=== PATIENT | female | born 1945 | race Caucasian/White ===

== ENCOUNTER → 2021-05-17 | Outpatient (CLI) | payer MEDICARE ==
[2021-05-18 00:39] LABS: African American GFR (CKD) 45.1 (60.0-200.0); BUN/Creat Ratio 22.76 Ratio (12.00-20.00); Blood Urea Nitrogen 30.5 mg/dL (9.0-27.0); Calcium 9.3 mg/dL (8.7-10.3); Carbon Dioxide 26.1 mmol/L (21.6-31.8); Non-African American GFR(CKD) 38.9 (60.0-200.0); Potassium 4.4 mmol/L (3.5-5.5)
== END | disposition home or self-care (01) ==
LOC: LABWHC1 15:09
PROVIDERS: ATTEND Internal Medicine Interventional Cardiology
DX: I10 Essential (primary) hypertension (principal); I34.0 Nonrheumatic mitral (valve) insufficiency; I07.1 Rheumatic tricuspid insufficiency; Z79.899 Other long term (current) drug therapy
CPT/HCPCS: 36415; 80048; 83880

== ENCOUNTER → 2021-08-06 | Outpatient (CLI) | payer MEDICARE ==
[2021-08-06 18:12] LABS: African American GFR (CKD) 27.3 (60.0-200.0); Anion Gap 13.9 mmol/L (10.00-18.00); BUN/Creat Ratio 24.58 Ratio (12.00-20.00); Blood Urea Nitrogen 49.9 mg/dL (9.0-27.0); Calcium 8.8 mg/dL (8.7-10.3); Non-African American GFR(CKD) 23.6 (60.0-200.0); Potassium 4.9 mmol/L (3.5-5.5)
== END | disposition home or self-care (01) ==
LOC: LABWHC1 11:21
DX: I50.9 Heart failure, unspecified (principal); I34.0 Nonrheumatic mitral (valve) insufficiency; I07.1 Rheumatic tricuspid insufficiency; R60.0 Localized edema
CPT/HCPCS: 36415; 80048

== ENCOUNTER → 2022-08-09 | Outpatient (CLI) | payer MEDICARE ==
--- NOTE | 2022-08-09 19:45 | CT ---
EXAMINATION TYPE: CT brain wo con CT DLP: 1792 mGycm, Automated exposure control for dose reduction was used. DATE OF EXAM: 08/09/2022 5:21 PM COMPARISON: CT sinus 04/23/2015. CLINICAL INDICATION:Female, 76 years old with history of R42 Dizziness, dizziness and loss of balance following fall 2 weeks ago TECHNIQUE: Brain: Axial CT images of the brain were obtained with coronal and sagittal reformats created and rev iewed. Contrast used: None. Oral contrast used: None. FINDINGS: Brain: Extra-axial spaces: No abnormal extra-axial fluid collections. Ventricular system: Within normal limits Cerebral parenchyma: No acute intraparenchymal hemorrhage or mass effect. The obando-white junction is well differentiated. Cerebellum: Unremarkable. Mass effect: No evidence of midline shift. Intracranial vasculature: Atherosclerotic calcifications of the intracranial vessels. Soft tissues: Bilateral frontal scalp contusion/edema. Calvarium/osseous structures: No depressed skull fracture. Paranasal sinuses and mastoid air cells: Mild scattered paranasal sinus disease. Visualized orbits: Orbital contents are intact. IMPRESSION: 1. No acute intracranial process. 2. Bilateral frontal scalp contusion/edema. No evidence of fracture.
== END | disposition home or self-care (01) ==
LOC: RADCTMAIN 16:39
PROVIDERS: ATTEND Family Medicine
DX: S00.03XA Contusion of scalp, initial encounter (principal); R42 Dizziness and giddiness
CPT/HCPCS: 70450

== ENCOUNTER 2022-08-10 13:27 | Inpatient (IN) | payer MEDICARE ==
[2022-08-10 14:38] LABS: Anisocytosis Slight; Basophils # (A) 0.1 k/uL (0-0.2); Basophils % (A) 1 %; Eosinophils % (A) 1 %; HGB 8.9 gm/dL (11.4-16.0); Lymphocytes # (A) 0.8 k/uL (1.0-4.8); Lymphocytes % (A) 13 %; MCH 30.7 pg (25.0-35.0); MCHC 34.2 g/dL (31.0-37.0); MCV 89.9 fL (80.0-100.0); Mean Platelet Volume 8.9; Monocytes # (A) 0.4 k/uL (0-1.0); Monocytes % (A) 6 %; Neutrophils # (A) 4.7 k/uL (1.3-7.7); Neutrophils % (A) 78 %; Platelet Count 162 k/uL (150-450); RBC 2.89 m/uL (3.80-5.40); RDW 17.1 % (11.5-15.5); WBC 6.1 k/uL (3.8-10.6)
[2022-08-10 14:46] LABS: INR 0.9 (<1.2); Partial Thromboplastin Time 25.4 sec (22.0-30.0)
[2022-08-10 14:58] LABS: Albumin 3.7 g/dL (3.5-5.0); Calcium 8.2 mg/dL (8.4-10.2); Magnesium 2.4 mg/dL (1.6-2.3); Potassium 4.9 mmol/L (3.5-5.1); Total Bilirubin 0.8 mg/dL (0.2-1.3); Total Protein 7.1 g/dL (6.3-8.2)
--- NOTE | 2022-08-10 15:00 | XR ---
EXAMINATION TYPE: XR chest 2V DATE OF EXAM: 08/10/2022 2:51 PM COMPARISON: none TECHNIQUE: XR chest 2V Frontal and lateral views of the chest. CLINICAL INDICATION:Female, 76 years old with history of difficulty breathing; FINDINGS: Lungs/Pleura: There is no evidence of pleural effusion, focal consolidation, or pneumothorax. Pulmonary vascularity: Pulmonary vascular congestion. Heart/mediastinum: Cardiomediastinal silhouette is enlarged and stable. Musculoskeletal: No acute osseous pathology. Lines/Tubes:Right internal jugular central venous catheter with distal tip at the cavoatrial junction . IMPRESSION: Cardiomegaly and mild pulmonary vascular congestion. Correlate with BNP for congestive heart failure. Correlate with clinical history to rule out underlying multifocal infection.
--- NOTE | 2022-08-10 15:26 | ED ---
General Adult HPI - General Chief complaint: Shortness of Breath Stated complaint: low O2 Time Seen by Provider: 08/10/22 13:35 Source: patient, RN notes reviewed, old records reviewed Mode of arrival: ambulatory Limitations: no limitations - History of Present Illness Initial comments: Patient is a 76-year-old female with past medical history remarkable for hypertension, CHF, angiosarcoma receives weekly chemotherapy presents emergency Department complaining of a chronic cough, as well as pneumonia that has been resistant to 3 rounds of antibiotics. Was sent by her PCP Dr. Galdamez. Also presents over concern for concussion, as well as head trauma multiple weeks ago with continued intermittent nausea and lightheaded sensations. She denies orth opnea. Denies PND. Denies worsening lower extremity edema. Endorses somewhat exertional dyspnea but states it is also limited by her lightheadedness that she occasionally gets. Denies chest pain. Denies any abdominal pain, nausea, vomiting. No other acute complaints at this time. Patient is not on oxygen at home.Patient has a cough consistent of clear mucus. - Related Data Allergies Allergy/AdvReac Type Severity Reaction Status Date / Time No Known Allergies Allergy Verified 08/10/22 13:34 Review of Systems ROS Statement: Those systems with pertinent positive or pertinent negative responses have been documented in the HPI. Review of Systems: CONST: Denies fever EYES: Denies blurry vision ENT: Denies nasal congestion C/V: Denies Chest pain RESP: Endorses Shortness of breath GI: Denies abdominal pain : Denies dysuria SKIN: Denies rash. MSK: Denies joint pain. NEURO: Denies headache ROS Other: All systems not noted in ROS Statement are negative. Past Medical History Past Medical History: Hypertension Additional Past Medical History / Comment(s): CHF, CX- angiosarcoma History of Any Multi-Drug Resistant Organisms: None Reported Past Surgical History: Orthopedic Surgery Additional Past Surgical History / Comment(s): mastectomy Past Psychological History: No Psychological Hx Reported Smoking Status: Never smoker Past Alcohol Use History: Occasional Past Drug Use History: None Reported General Exam - General Exam Comments Initial Comments: General: Appears in no acute distress. HEAD: Normal with no signs of head trauma. Patient has bruising under her left eye from the fall 2 weeks ago. EYES: PERRLA, EOMI, conjunctiva normal, no discharge. ENT: Hearing grossly intact, normal oropharynx. RESPIRATORY: Bilateral crackles/rhonchi. Mild intermittent hypoxia to 91%. C/V: Regular rate and rhythm. S1 and S2 auscultated, no edema, peripheral pulses 2+ and intact throughout ABD: Abd is soft, nontender, nondistended EXT: Normal range of motion, no obvious deformity SKIN: No rashes or lesions observed on exposed skin. NEURO: Alert and Oriented 4. Limitations: no limitations Course Vital Signs 08/10/22 08/10/22 13:30 14:30 Temperature 97.8 F Pulse Rate 59 L Respiratory 16 Rate Blood Pressure 125/69 O2 Sat by Pulse 91 L 95 Oximetry Medical Decision Making - Medical Decision Making Based on the patient's presentation and physical exam, I am concerned for cardio pony etiology for her current symptoms. This does include pneumonia but cannot rule out heart failure. Clinically, it seems more like pneumonia she is having a productive cough that has been ongoing and resistant to antibiotic therapy. She has no evidence of clinical heart failure including lack of orthopnea, PND, lower extremity edema. Patient is mildly hypoxic on room air and will be placed on 2 L nasal cannula for comfort. She was in agreement with this plan. Patient received CT imaging of brain yesterday, which is negative for any acute intracranial trauma or bleed. I did update the patient regarding this and she expressed understanding. EKG shows no signs of acute ischemia. Patient is positive for influenza, has an elevated BNP of 17,000 which is elevated for the patient, as well as a indeterminate troponin of 0.021. Patient also has an AK I with an elevated BUN and creatinine of 71 and 2.39. Patient is hyponatremic to 127 and hypochloremia to 92. Patient also has anemia in the setting of chemotherapy administration at 8.9. She is not neutropenic. On reevaluation, after the patient. She expressed understanding. She'll be started on IV Lasix, IV antibiotics to cover for pneumonia. She was in agreement this plan. I spoke with Dr. Galdamez who accepted the admission. Symptoms seem to be a mix of possible heart failure as well as influenza. We will obtain an echo. He requested a cardiology consult, as well as starting the patient on IV Levaquin and azithromycin. Blood cultures will be obtained and sent. He was in agreement with the overall plan the patient is likely experiencing pneumonia over heart failure but we will work her up for heart failure. AK eye is likely secondary to increased Lasix and Bumex use. She will receive a 1 time 500 mL fluid bolus and otherwise oral hydration will be encouraged. She will receive a 1 time dose of Lasix. Patient is influenza A positive, however his symptoms have been ongoing for 2 weeks unlikely to benefit from Tamiflu as she does not meet criteria for his symptoms are greater than 3 days old. He was in agreement with holding Tamiflu and started patient on antibiotics. He'll see the patient tomorrow. I updated the patient she was in agreement this plan. Was pt. sent in by a medical professional or institution (, PA, MUSIC LIBRARY ASSISTANT, urgent care, hospital, or care home...) When possible be specific @ -yes, her PCP Dr. Galdamez sent the patient in for further evaluation due to shortness of breath, concern for pneumonia. Did you speak to anyone other than the patient for history (EMS, parent, family, police, friend...)? What history was obtained from this source @ -No Did you review nursing and triage notes (agree or disagree)? Why? @ -I reviewed and agree with nursing and triage notes Were old charts reviewed (outside hosp., previous admission, EMS record, old EKG, old radiological studies, urgent care reports/EKG's, care home records)? Report findings @ -Yes, old charts were reviewed. Old CT was reviewed from yesterday. Differential Diagnosis (chest pain, altered mental status, abdominal pain women, abdominal pain men, vaginal bleeding, weakness, fever, dyspnea, syncope, headache, dizziness, GI bleed, back pain, seizure, CVA, palpatations, mental health)? @ -Differential Dyspnea: Coronary syndrome, arrhythmia, tamponade, asthma, COPD, pulmonary embolism, pneumonia, pneumothorax, pulmonary effusion, anaphylaxis, diabetic ketoacidosis, flailed chest, pulmonary contusion, diaphragmatic rupture, anemia, neuromuscular, this is not meant to be an all-inclusive list. EKG interpreted by me (3pts min.). @ -As above X-rays interpreted by me (1pt min.). @ -Chest x-ray shows findings concerning for pneumonia versus possible CHF. CT interpreted by me (1pt min.). @ -None done U/S interpreted by me (1pt. min.). @ -None done What testing was considered but not performed or refused? (CT, X-rays, U/S, labs)? Why? @ -None What meds were considered but not given or refused? Why? @ -None Did you discuss the management of the patient with other professionals (professionals i.e. , PA, MUSIC LIBRARY ASSISTANT, lab, RT, psych nurse, social science research assistant, park superintendent, teacher, helicopter officer, case operator)? Give summary @ -No Was smoking cessation discussed for >3mins.? @ -No Was critical care preformed (if so, how long)? @ -No Were there social determinants of health that impacted care today? How? (Homelessness, low income, unemployed, alcoholism, drug addiction, transportation, low edu. Level, literacy, decrease access to med. care, [facility], rehab)? @ -No Was there de-escalation of care discussed even if they declined (Discuss DNR or withdrawal of care, Hospice)? DNR status @ -No What co-morbidities impacted this encounter? (DM, HTN, Smoking, COPD, CAD, Can cer, CVA, ARF, Chemo, Hep., AIDS, mental health diagnosis, sleep apnea, morbid obesity)? @ -CHF, cancer Was patient admitted / discharged? Hospital course, mention meds given and route, prescriptions, significant lab abnormalities, going to OR and other pertinent info. @ -Admitted to the hospital. See above for emergency department course. Undiagnosed new problem with uncertain prognosis? @ -No Drug Therapy requiring intensive monitoring for toxicity (Heparin, Nitro, Insulin, Cardizem)? @ -No Were any procedures done? @ -No Diagnosis/symptom? @ -Hypoxia Acute, or Chronic, or Acute on Chronic? @ -Acute Uncomplicated (without systemic symptoms) or Complicated (systemic symptoms)? @ -Uncomplicated Side effects of treatment? @ -No Exacerbation, Progression, or Severe Exacerbation? @ -No Poses a threat to life or bodily function? How? (Chest pain, USA, ID, pneumonia, PE, COPD, DKA, ARF, appy, cholecystitis, CVA, Diverticulitis, Homicidal, Suicidal, threat to staff... and all critical care pts) @ -Yes, if untreated can result in significant morbidity mortality. Diagnosis/symptom? @ -Pneumonia Acute, or Chronic, or Acute on Chronic? @ -Acute Uncomplicated (without systemic symptoms) or Complicated (systemic symptoms)? @ -Complicated Side effects of treatment? @ -none Exacerbation, Progression, or Severe Exacerbation] @ -no Poses a threat to life or bodily function? @ -Yes, if untreated can result in significant morbidity mortality. Diagnosis/symptom? @ -AK I Acute, or Chronic, or Acute on Chronic? @ -Acute Uncomplicated (without systemic symptoms) or Complicated (systemic symptoms)? @ -Uncomplicated Side effects of treatment? @ -none Exacerbation, Progression, or Severe Exacerbation] @ -no Poses a threat to life or bodily function? @ -no Diagnosis/symptom? @ -History of cancer on maintenance chemotherapy Acute, or Chronic, or Acute on Chronic? @ -Chronic Uncomplicated (without systemic symptoms) or Complicated (systemic symptoms)? @ -Uncomplicated Side effects of treatment? @ -none Exacerbation, Progression, or Severe Exacerbation] @ -no Poses a threat to life or bodily function? @ -no Diagnosis/symptom? @ -Influenza infection Acute, or Chronic, or Acute on Chronic? @ -Acute Uncomplicated (without systemic symptoms) or Complicated (systemic symptoms)? @ -Complicated Side effects of treatment? @ -none Exacerbation, Progression, or Severe Exacerbation] @ -no Poses a threat to life or bodily function? @ -Yes, if untreated can result in significant morbidity mortality. Diagnosis/symptom? @ -Hyponatremia and hypochloremia Acute, or Chronic, or Acute on Chronic? @ -Acute Uncomplicated (without systemic symptoms) or Complicated (systemic symptoms)? @ -Uncomplicated Side effects of treatment? @ -none Exacerbation, Progression, or Severe Exacerbation] @ -no Poses a threat to life or bodily function? @ -no Diagnosis/symptom? @ -Concussion Acute, or Chronic, or Acute on Chronic? @ -Acute Uncomplicated (without systemic symptoms) or Complicated (systemic symptoms)? @ -Uncomplicated Side effects of treatment? @ -none Exacerbation, Progression, or Severe Exacerbation] @ -no Poses a threat to life or bodily function? @ -no - Lab Data Result diagrams: 08/10/22 14:26 08/10/22 14:26 Lab Results 08/10/22 08/10/22 08/10/22 Range/Units 14:26 14:26 14:26 WBC 6.1 (3.8-10.6) k/uL RBC 2.89 L (3.80-5.40) m/uL Hgb 8.9 L (11.4-16.0) gm/dL Hct 26.0 L (34.0-46.0) % MCV 89.9 (80.0-100.0) fL MCH 30.7 (25.0-35.0) pg MCHC 34.2 (31.0-37.0) g/dL RDW 17.1 H (11.5-15.5) % Plt Count 162 (150-450) k/uL MPV 8.9 Neutrophils % 78 % Lymphocytes % 13 % Monocytes % 6 % Eosinophils % 1 % Basophils % 1 % Neutrophils # 4.7 (1.3-7.7) k/uL Lymphocytes # 0.8 L (1.0-4.8) k/uL Monocytes # 0.4 (0-1.0) k/uL Eosinophils # 0.0 (0-0.7) k/uL Basophils # 0.1 (0-0.2) k/uL Anisocytosis Slight PT 10.0 (9.0-12.0) sec INR 0.9 (<1.2) APTT 25.4 (22.0-30.0) sec Sodium 127 L (137-145) mmol/L Potassium 4.9 (3.5-5.1) mmol/L Chloride 92 L (98-107) mmol/L Carbon Dioxide 26 (22-30) mmol/L Anion Gap 9 mmol/L BUN 71 H (7-17) mg/dL Creatinine 2.39 H (0.52-1.04) mg/dL Est GFR (CKD-EPI)AfAm 22 (>60 ml/min/1.73 sqM) Est GFR (CKD-EPI)NonAf 19 (>60 ml/min/1.73 sqM) Glucose 105 H (74-99) mg/dL Plasma Lactic Acid Andrea (0.7-2.0) mmol/L Calcium 8.2 L (8.4-10.2) mg/dL Magnesium 2.4 H (1.6-2.3) mg/dL Total Bilirubin 0.8 (0.2-1.3) mg/dL AST 93 H (14-36) U/L ALT 69 H (4-34) U/L Alkaline Phosphatase 113 (38-126) U/L Troponin I (0.000-0.034) ng/mL NT-Pro-B Natriuret Pep pg/mL Total Protein 7.1 (6.3-8.2) g/dL Albumin 3.7 (3.5-5.0) g/dL Influenza Type A (PCR) (Not Detectd) Influenza Type B (PCR) (Not Detectd) RSV (PCR) (Not Detectd) SARS-CoV-2 (PCR) (Not Detectd) 08/10/22 08/10/22 08/10/22 Range/Units 14:26 14:26 14:26 WBC (3.8-10.6) k/uL RBC (3.80-5.40) m/uL Hgb (11.4-16.0) gm/dL Hct (34.0-46.0) % MCV (80.0-100.0) fL MCH (25.0-35.0) pg MCHC (31.0-37.0) g/dL RDW (11.5-15.5) % Plt Count (150-450) k/uL MPV Neutrophils % % Lymphocytes % % Monocytes % % Eosinophils % % Basophils % % Neutrophils # (1.3-7.7) k/uL Lymphocytes # (1.0-4.8) k/uL Monocytes # (0-1.0) k/uL Eosinophils # (0-0.7) k/uL Basophils # (0-0.2) k/uL Anisocytosis PT (9.0-12.0) sec INR (<1.2) APTT (22.0-30.0) sec Sodium (137-145) mmol/L Potassium (3.5-5.1) mmol/L Chloride (98-107) mmol/L Carbon Dioxide (22-30) mmol/L Anion Gap mmol/L BUN (7-17) mg/dL Creatinine (0.52-1.04) mg/dL Est GFR (CKD-EPI)AfAm (>60 ml/min/1.73 sqM) Est GFR (CKD-EPI)NonAf (>60 ml/min/1.73 sqM) Glucose (74-99) mg/dL Plasma Lactic Acid Andrea 1.4 (0.7-2.0) mmol/L Calcium (8.4-10.2) mg/dL Magnesium (1.6-2.3) mg/dL Total Bilirubin (0.2-1.3) mg/dL AST (14-36) U/L ALT (4-34) U/L Alkaline Phosphatase (38-126) U/L Troponin I 0.021 (0.000-0.034) ng/mL NT-Pro-B Natriuret Pep 79182 pg/mL Total Protein (6.3-8.2) g/dL Albumin (3.5-5.0) g/dL Influenza Type A (PCR) (Not Detectd) Influenza Type B (PCR) (Not Detectd) RSV (PCR) (Not Detectd) SARS-CoV-2 (PCR) (Not Detectd) 08/10/22 Range/Units 14:26 WBC (3.8-10.6) k/uL RBC (3.80-5.40) m/uL Hgb (11.4-16.0) gm/dL Hct (34.0-46.0) % MCV (80.0-100.0) fL MCH (25.0-35.0) pg MCHC (31.0-37.0) g/dL RDW (11.5-15.5) % Plt Count (150-450) k/uL MPV Neutrophils % % Lymphocytes % % Monocytes % % Eosinophils % % Basophils % % Neutrophils # (1.3-7.7) k/uL Lymphocytes # (1.0-4.8) k/uL Monocytes # (0-1.0) k/uL Eosinophils # (0-0.7) k/uL Basophils # (0-0.2) k/uL Anisocytosis PT (9.0-12.0) sec INR (<1.2) APTT (22.0-30.0) sec Sodium (137-145) mmol/L Potassium (3.5-5.1) mmol/L Chloride (98-107) mmol/L Carbon Dioxide (22-30) mmol/L Anion Gap mmol/L BUN (7-17) mg/dL Creatinine (0.52-1.04) mg/dL Est GFR (CKD-EPI)AfAm (>60 ml/min/1.73 sqM) Est GFR (CKD-EPI)NonAf (>60 ml/min/1.73 sqM) Glucose (74-99) mg/dL Plasma Lactic Acid Andrea (0.7-2.0) mmol/L Calcium (8.4-10.2) mg/dL Magnesium (1.6-2.3) mg/dL Total Bilirubin (0.2-1.3) mg/dL AST (14-36) U/L ALT (4-34) U/L Alkaline Phosphatase (38-126) U/L Troponin I (0.000-0.034) ng/mL NT-Pro-B Natriuret Pep pg/mL Total Protein (6.3-8.2) g/dL Albumin (3.5-5.0) g/dL Influenza Type A (PCR) Detected A (Not Detectd) Influenza Type B (PCR) Not Detected (Not Detectd) RSV (PCR) Not Detected (Not Detectd) SARS-CoV-2 (PCR) Not Detected (Not Detectd) - EKG Data -: EKG Interpreted by Me EKG Comments: 12-lead Electrocardiogram Interpretation Note EKG was reviewed and interpreted by myself. 12-lead ECG performed at 1435 is interpreted by me as revealing sinus bradycardia at a rate of 55 beats per min marco a. [place] is normal. VT interval is 176 seconds, QR spiritism is 118 ms, QTc is 435 ms.. There were no ST or T wave abnormalities to suggest myocardial ischemia or injury. R wave progression across the precordium was satisfactory. By my interpretation this EKG is non-diagnostic for acute ischemia. No prior EKG for comparison. Disposition Clinical Impression: History of CHF (congestive heart failure), Pneumonia, Influenza A, Concussion, RYAN (acute kidney injury) Disposition: ADMITTED IP TO THIS HOSP Condition: Stable Referrals: Greyson Galdamez MD [Primary Care Provider] - 1-2 days Time of Disposition: 15:25
[2022-08-10] MEDS ORDERED: FUROSEMIDE 10 MG/ML 4 ML VIAL IV STA (15:35)
[2022-08-10] MEDS ORDERED: SODIUM CHLORIDE 0.9% 500 ML 500 ML IV STA (15:35)
[2022-08-10] MEDS ORDERED: NALOXONE 0.4 MG/ML 1 ML VIAL IV PRN (15:35)
[2022-08-10] MEDS ORDERED: LEVOFLOXACIN 750MG-D5W PMX 750 MG in DEXTROSE/WATER 1 150ML.BAG IVPB SCH (16:00)
[2022-08-10 16:53] LABS: Appearance,Urine Clear (Clear); Bilirubin,Urine Negative (Negative); Blood,Urine Trace (Negative); Color,Urine Light Yellow; Glucose,Urine (UA) Negative (Negative); Hyaline Casts,Urine 17 /lpf (0-2); Ketones,Urine Negative (Negative); Leukocyte Esterase,Urine Negative (Negative); Mucus,Urine Rare /hpf; Nitrite,Urine Negative (Negative); PH, Urine 5.5 (5.0-8.0); Protein,Urine Trace (Negative); RBC,Urine 2 /hpf (0-5); Specific Gravity,Urine 1.008 (1.001-1.035); Squamous Epithelial Cell,Urine 1 /hpf (0-4); Urobilinogen,Urine <2.0 mg/dL (<2.0); WBC,Urine 1 /hpf (0-5)
[2022-08-10] MEDS: AZITHROMYCIN 500 MG in SODIUM CHLORIDE 0.9% 250 ML IVPB SCH (21:22)
[2022-08-10] MEDS ORDERED: NON FORMULARY DRUG (Albuterol Inhaler 90 MCG Puff) INHALATION PRN (22:47)
[2022-08-10] MEDS ORDERED: ALBUTEROL NEBULIZED 2.5 MG/3 ML INHALATION PRN (22:47)
[2022-08-10] MEDS: ASPIRIN 81 MG PO SCH (23:30)
[2022-08-10] MEDS: ATORVASTATIN 20 MG TAB PO SCH (23:30)
[2022-08-10] MEDS: HEPARIN SODIUM,PORCINE/PF 5,000 UNIT/0.5 ML SYRINGE SQ SCH (23:30)
[2022-08-10] MEDS: MONTELUKAST 10 MG TAB PO SCH (23:30)
[2022-08-11] MEDS ORDERED: PROCHLORPERAZINE 10 MG TAB PO PRN
[2022-08-11] MEDS: MULTIVITAMINS, THERA 1 EACH TAB PO SCH (07:53)
[2022-08-11] MEDS: PANTOPRAZOLE 40 MG TABLET PO SCH (07:53)
[2022-08-11] MEDS: CALCIUM CARB-VIT D 500 MG-5 MCG TAB PO SCH ×2 (07:53→21:36)
[2022-08-11] MEDS: SPIRONOLACTONE 25 MG TAB PO SCH (07:53)
[2022-08-11] MEDS: amLODIPine 10 MG TAB PO SCH (07:53)
[2022-08-11] MEDS: HEPARIN SODIUM,PORCINE/PF 5,000 UNIT/0.5 ML SYRINGE SQ SCH ×2 (07:53→21:37)
[2022-08-11] MEDS: LACTOBACILLUS ACIDOPH & BULGAR 1 EACH PACKET PO SCH (07:53)
[2022-08-11] MEDS: LORATADINE 10 MG TAB PO SCH (07:53)
[2022-08-11] MEDS: METOPROLOL SUCCINATE (ER) 100 MG TAB.ER.24H PO SCH (07:54)
[2022-08-11] MEDS: FLUTICASONE 50MCG/SPRAY NASAL 16GM EA NOSTRIL SCH (07:57)
--- NOTE | 2022-08-11 08:42 | P.HPIM ---
History of Present Illness H&P Date: 08/11/22 Chief Complaint: shortness of breath, concussion This is a 76-year-old female who is admitted yesterday after low oxygen saturation at home, with some mild shortness of breath. Recently she was in the [facility] and had a fall and was seen in our office earlier this week for co ncussion type symptoms. She has also complained of recent lightheadedness. Influenza A was positive on admission. She is not on any oxygen at home currently wearing 2 L nasal cannula. She is seen sitting up in bed eating breakfast this morning with no current complaints other than mild dizziness. She does have an extensive medical history including hypertension CHF and cancer. Review of Systems Constitutional: Denies chills, Denies fever Ears, nose, mouth and throat: Reports vertigo Cardiovascular: Reports shortness of breath, Denies chest pain Respiratory: Reports cough, Denies congestion Gastrointestinal: Denies abdominal pain, Denies change in bowel habits Musculoskeletal: Denies arm numbness/tingling, Denies leg numbness/tingling Neurological: Reports vertigo, Denies headaches 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, right knee oa, positive factor 5 leiden History of Any Multi-Drug Resistant Organisms: None Reported Past Surgical History: Orthopedic Surgery Additional Past Surgical History / Comment(s): mastectomy, left total knee replacement, right chest wall mediport/power port Past Anesthesia/Blood Transfusion Reactions: No Reported Reaction Past Psychological History: No Psychological Hx Reported Smoking Status: Never smoker Past Alcohol Use History: Occasional Past Drug Use History: None Reported - Past Family History Father History Unknown: Yes Family Medical History: Unable to Obtain Additional Family Medical History / Comment(s): patient is adopted Medications and Allergies Home Medications Medication Instructions Recorded Confirmed Type Albuterol Inhaler [Ventolin Hfa 2 puff INHALATION RT-Q4H PRN 08/10/22 08/10/22 History Inhaler] Albuterol Nebulized [Ventolin 2.5 mg INHALATION RT-QID PRN 08/10/22 08/10/22 History Nebulized] Aspirin EC [Ecotrin Low Dose] 81 mg PO DAILY 08/10/22 08/10/22 History Atorvastatin [Lipitor] 20 mg PO HS 08/10/22 08/10/22 History Azithromycin [Zithromax] See Taper PO DAILY 08/10/22 08/10/22 History Bumetanide [BUMEX] 4 mg PO BID 08/10/22 08/10/22 History Calcium Carbonate/Vitamin D3 1 tab PO BID 08/10/22 08/10/22 History [Calcium 600 mg-D3 20 mcg (800 unit)] Co Q-10 100mg 100 mg PO BID 08/10/22 08/10/22 History Fexofenadine HCl [Amelia Allergy] 180 mg PO DAILY 08/10/22 08/10/22 History Fluticasone Nasal [place] [Flonase 2 spr EA NOSTRIL DAILY 08/10/22 08/10/22 History Nasal [place]] Gabapentin 300 mg PO HS@1700 08/10/22 08/10/22 History Labetalol [Trandate] 400 mg PO BID 08/10/22 08/10/22 History Lactobacillus Rhamnosus GG 1 cap PO DAILY 08/10/22 08/10/22 History [Culturelle] Lidocaine-Prilocaine Cream [Emla 1 applic TOPICAL DIRECTED PRN 08/10/22 08/10/22 History Cream 2.5%/2.5%] Metoprolol Succinate (ER) [Toprol 100 mg PO DAILY 08/10/22 08/10/22 History Xl] Montelukast [Singulair] 10 mg PO HS 08/10/22 08/10/22 History Multivitamins, Thera [Multivitamin 1 tab PO DAILY 08/10/22 08/10/22 History (formulary)] Omeprazole [PriLOSEC] 20 mg PO DAILY 08/10/22 08/10/22 History Prevagen 1 cap PO DAILY 08/10/22 08/10/22 History Prochlorperazine [Compazine] 10 mg PO Q6H PRN 08/10/22 08/10/22 History Spironolactone [Aldactone] 25 mg PO DAILY 08/10/22 08/10/22 History amLODIPine [Norvasc] 10 mg PO DAILY 08/10/22 08/10/22 History metOLazone [Zaroxolyn] 5 mg PO DAILY PRN 08/10/22 08/10/22 History Allergies Allergy/AdvReac Type Severity Reaction Status Date / Time tomato Allergy Rash/Hives Verified 08/10/22 15:48 all over from raw tomatoes Physical Exam Vitals: Vital Signs Temp Pulse Pulse Resp BP BP Pulse Ox 08/11/22 07:55 95 08/11/22 02:00 98.1 F 64 18 131/68 94 L 08/10/22 20:30 98.3 F 60 20 122/68 95 08/10/22 17:59 92 L 08/10/22 17:51 97.4 F L 56 L 20 123/69 82 L 08/10/22 14:30 95 08/10/22 13:30 97.8 F 59 L 16 125/69 91 L Intake and Output 08/10/22 08/11/22 08/11/22 22:59 06:59 14:59 Intake Total 400 Balance 400 Intake: Intake, IV Titration 400 Amount Azithromycin 500 mg In 250 Sodium Chloride 0.9% 250 ml @ 250 mls/hr IVPB DAILY@1600 [facility] Rx#: [id number] Levofloxacin 750Mg-D5w 150 Pmx 750 mg In Dextrose/ Water 1 150ml.bag @ 100 mls/hr IVPB Q24H [facility] Rx#: [id number] Other: Voiding Method Toilet # Voids 2 Weight 86.183 kg 91 kg - Constitutional General appearance: cooperative, no no acute distress - EENT Eyes: EOMI, PERRLA - Neck Neck: no lymphadenopathy, normal ROM - Respiratory Respiratory: bilateral: diminished, rhonchi - Cardiovascular Rhythm: regular Heart sounds: normal: S1, S2 - Gastrointestinal General gastrointestinal: soft, no tenderness - Integumentary Integumentary: normal, normal turgor - Psychiatric Psychiatric: A&O x's 3, appropriate affect, intact judgment & insight Results CBC & Chem 7: 08/10/22 14:26 08/10/22 14:26 Labs: Abnormal Lab Results - Last 24 Hours (Table) 08/10/22 08/10/22 08/10/22 Range/Units 14:26 14:26 14:26 RBC 2.89 L (3.80-5.40) m/uL Hgb 8.9 L (11.4-16.0) gm/dL Hct 26.0 L (34.0-46.0) % RDW 17.1 H (11.5-15.5) % Lymphocytes # 0.8 L (1.0-4.8) k/uL Sodium 127 L (137-145) mmol/L Chloride 92 L (98-107) mmol/L BUN 71 H (7-17) mg/dL Creatinine 2.39 H (0.52-1.04) mg/dL Glucose 105 H (74-99) mg/dL Calcium 8.2 L (8.4-10.2) mg/dL Magnesium 2.4 H (1.6-2.3) mg/dL AST 93 H (14-36) U/L ALT 69 H (4-34) U/L Urine Protein (Negative) Urine Blood (Negative) Hyaline Casts (0-2) /lpf Urine Mucus (None) /hpf Influenza Type A (PCR) Detected A (Not Detectd) 08/10/22 Range/Units 16:00 RBC (3.80-5.40) m/uL Hgb (11.4-16.0) gm/dL Hct (34.0-46.0) % RDW (11.5-15.5) % Lymphocytes # (1.0-4.8) k/uL Sodium (137-145) mmol/L Chloride (98-107) mmol/L BUN (7-17) mg/dL Creatinine (0.52-1.04) mg/dL Glucose (74-99) mg/dL Calcium (8.4-10.2) mg/dL Magnesium (1.6-2.3) mg/dL AST (14-36) U/L ALT (4-34) U/L Urine Protein Trace H (Negative) Urine Blood Trace H (Negative) Hyaline Casts 17 H (0-2) /lpf Urine Mucus Rare H (None) /hpf Influenza Type A (PCR) (Not Detectd) Thrombosis Risk Factor Assmnt - Choose All That Apply Any of the Below Risk Factors Present?: Yes Each Factor Represents 1 point: Serious lung disease incl. pneumonia (< 1month) Other Risk Factors: Yes Each Risk Factor Represents 2 Points: Central venous access, Malignancy Each Risk Factor Represents 3 Points: Positive Factor V Leiden, Age 75 years or older Thrombosis Risk Factor Assessment Total Risk Factor Score: 11 Thrombosis Risk Factor Assessment Level: High Risk Assessment and Plan (1) RYAN (acute kidney injury) Current Visit: Yes Status: Acute Code(s): N17.9 - ACUTE KIDNEY FAILURE, UNSPECIFIED SNOMED Code(s): 45545148 (2) Concussion Current Visit: Yes Status: Acute Code(s): S06.0XAA - CONCUSSION WITH LOC STATUS UNKNOWN, INITIAL ENCOUNTER SNOMED Code(s): 530507464 (3) History of CHF (congestive heart failure) Current Visit: Yes Status: Acute Code(s): Z86.79 - PERSONAL HISTORY OF OTHER DISEASES OF THE CIRCULATORY SYSTEM SNOMED Code(s): 469756578 (4) Influenza A Current Visit: Yes Status: Acute Code(s): J10.1 - FLU DUE TO OTH IDENT INFLUENZA VIRUS W OTH RESP MANIFEST SNOMED Code(s): 809529214 (5) Pneumonia Current Visit: Yes Status: Acute Code(s): J18.9 - PNEUMONIA, UNSPECIFIED ORGANISM SNOMED Code(s): 759678536 Plan: Consult to cardiology and nephrology. Appreciate nephrology's input on Bumex. CBC and CMP in the morning. Patient seen and evaluated by nurse practitioner, physician in agreement with plan
[2022-08-11] MEDS ORDERED: metOLazone 5 MG TAB PO PRN (09:00)
[2022-08-11] MEDS ORDERED: BUMETANIDE 1 MG TAB PO SCH (09:00)
[2022-08-11] MEDS ORDERED: NON FORMULARY DRUG (Prevagen 1 CAP) PO SCH (09:00)
[2022-08-11 09:15] LABS: HCT 23.5 % (37.2-46.3); HGB 7.7 g/dL (12.0-15.0); MCH 30.8 pg (27.0-32.0); MCHC 32.8 g/dL (32.0-37.0); Mean Platelet Volume 10.8 fL (9.5-12.2); NRBC Per 100 WBC 3.3 /100 WBCS (0.0-0.0); Platelet Count 161 X 10*3/uL (140-440); RDW 16.6 % (11.5-14.5); WBC 6.74 X 10*3/uL (4.50-10.00)
[2022-08-11 09:30] LABS: African American GFR (CKD) 21.6 (60.0-200.0); BUN/Creat Ratio 24.24 Ratio (12.00-20.00); Blood Urea Nitrogen 59.4 mg/dL (9.0-27.0); Calcium 8.3 mg/dL (8.7-10.3); Carbon Dioxide 23.6 mmol/L (20.0-27.5); Non-African American GFR(CKD) 18.6 (60.0-200.0)
--- NOTE | 2022-08-11 10:01 | P.CRDCN ---
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 Patient follows with a absorption plant operator out of [facility]. We have been asked to see the patient in consultation for congestive heart failure. Patient examined at the bedside. Patient states she presented to the hospital secondary to shortness of breath and a cough. She states her pulse ox at home was found to be 85%. She states she has been dealing with pneumonia since the beginning of July and has been through 3 rounds of antibiotics. She reports feeling congested at home. She denied having any fever or chills. She currently denies any shortness of breath. The patient was found to be positive for influenza A. The patient does report a history of congestive heart failure. She is prescribed Bumex, Aldactone, and Zaroxolyn on an outpatient basis. She states that her congestive heart failure was caused by one of her chemotherapy agents. * EKG reveals sinus mechanism with no signs of acute ischemia * Chest xray cardiomegaly with mild pulmonary vascular congestion. Correlate with clinical history to rule out underlying multifocal infection. * Laboratory data: WBC 6.74. Hemoglobin 7.7. Platelet count 161. Sodium 128. Potassium 4.0. BUN 59.4. Creatinine 2.5. Troponin negative 3. ProBNP 17,000. * Current home cardiac medications include Zaroxolyn 5 mg daily as needed, amlodipine 10 mg daily, spironolactone 25 mg daily, metoprolol succinate 100 mg daily, labetalol 400 mg twice a day, Bumex 4 mg twice a day, Lipitor 20 mg at night, and aspirin 81 mg daily REVIEW OF SYSTEMS: At the time of my exam: CONSTITUTIONAL: Denies fever or chills. HEENT: Denies blurred vision, vision changes, or eye pain. Denies hemoptysis CARDIOVASCULAR: Denies chest pain. Denies orthopnea. Denies PND. Denies palpitations RESPIRATORY: Denies shortness of breath. GASTROINTESTINAL: Denies abdominal pain. Denies nausea or vomiting. HEMATOLOGIC: Denies bleeding disorders. GENITOURINARY: Denies any blood in urine. SKIN: Denies pruitis. Denies rash. PHYSICAL EXAM: VITAL SIGNS: Reviewed. GENERAL: Well-developed in no acute distress. HEENT: Head is normocephalic. Pupils are equal, round. Sclerae anicteric. Mucous membranes of the mouth are moist. Neck supple. No JVD or thyromegaly LUNGS: Respirations even and unlabored. Lungs with bibasilar crackles HEART: Regular rate and rhythm. S1 and S2 heard. Systolic murmur noted ABDOMEN: Soft. Nondistended. Nontender. EXTREMITIES: Normal range of motion. No clubbing or cyanosis. Peripheral pulses intact. No lower extremity edema NEUROLOGIC: Awake and alert. Oriented x 3. 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 Knox recommends continuing current oral diuretic regimen secondary to patient's complicated cardiac history Patient to follow up outpatient with her primary absorption plant operator Further recommendations pending patient course Nurse practitioner note has been reviewed by physician. Signing provider agrees with the documented findings, assessment, and plan of care. 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, right knee oa, positive factor 5 leiden History of Any Multi-Drug Resistant Organisms: None Reported Past Surgical History: Orthopedic Surgery Additional Past Surgical History / Comment(s): mastectomy, left total knee replacement, right chest wall mediport/power port Past Anesthesia/Blood Transfusion Reactions: No Reported Reaction Past Psychological History: No Psychological Hx Reported Smoking Status: Never smoker Past Alcohol Use History: Occasional Past Drug Use History: None Reported - Past Family History Father History Unknown: Yes Family Medical History: Unable to Obtain Additional Family Medical History / Comment(s): patient is adopted Medications and Allergies Home Medications Medication Instructions Recorded Confirmed Type Albuterol Inhaler [Ventolin Hfa 2 puff INHALATION RT-Q4H PRN 08/10/22 08/10/22 History Inhaler] Albuterol Nebulized [Ventolin 2.5 mg INHALATION RT-QID PRN 08/10/22 08/10/22 History Nebulized] Aspirin EC [Ecotrin Low Dose] 81 mg PO DAILY 08/10/22 08/10/22 History Atorvastatin [Lipitor] 20 mg PO HS 08/10/22 08/10/22 History Azithromycin [Zithromax] See Taper PO DAILY 08/10/22 08/10/22 History Bumetanide [BUMEX] 4 mg PO BID 08/10/22 08/10/22 History Calcium Carbonate/Vitamin D3 1 tab PO BID 08/10/22 08/10/22 History [Calcium 600 mg-D3 20 mcg (800 unit)] Co Q-10 100mg 100 mg PO BID 08/10/22 08/10/22 History Fexofenadine HCl [Amelia Allergy] 180 mg PO DAILY 08/10/22 08/10/22 History Fluticasone Nasal [place] [Flonase 2 spr EA NOSTRIL DAILY 08/10/22 08/10/22 History Nasal [place]] Gabapentin 300 mg PO HS@1700 08/10/22 08/10/22 History Labetalol [Trandate] 400 mg PO BID 08/10/22 08/10/22 History Lactobacillus Rhamnosus GG 1 cap PO DAILY 08/10/22 08/10/22 History [Culturelle] Lidocaine-Prilocaine Cream [Emla 1 applic TOPICAL DIRECTED PRN 08/10/22 08/10/22 History Cream 2.5%/2.5%] Metoprolol Succinate (ER) [Toprol 100 mg PO DAILY 08/10/22 08/10/22 History Xl] Montelukast [Singulair] 10 mg PO HS 08/10/22 08/10/22 History Multivitamins, Thera [Multivitamin 1 tab PO DAILY 08/10/22 08/10/22 History (formulary)] Omeprazole [PriLOSEC] 20 mg PO DAILY 08/10/22 08/10/22 History Prevagen 1 cap PO DAILY 08/10/22 08/10/22 History Prochlorperazine [Compazine] 10 mg PO Q6H PRN 08/10/22 08/10/22 History Spironolactone [Aldactone] 25 mg PO DAILY 08/10/22 08/10/22 History amLODIPine [Norvasc] 10 mg PO DAILY 08/10/22 08/10/22 History metOLazone [Zaroxolyn] 5 mg PO DAILY PRN 08/10/22 08/10/22 History Allergies Allergy/AdvReac Type Severity Reaction Status Date / Time tomato Allergy Rash/Hives Verified 08/10/22 15:48 all over from raw tomatoes Physical Exam Vitals: Vital Signs Temp Pulse Pulse Resp BP BP Pulse Ox 08/11/22 02:00 98.1 F 64 18 131/68 94 L 08/10/22 20:30 98.3 F 60 20 122/68 95 08/10/22 17:59 92 L 08/10/22 17:51 97.4 F L 56 L 20 123/69 82 L 08/10/22 14:30 95 08/10/22 13:30 97.8 F 59 L 16 125/69 91 L Intake and Output 08/10/22 08/11/22 08/11/22 22:59 06:59 14:59 Intake Total 400 Balance 400 Intake: Intake, IV Titration 400 Amount Azithromycin 500 mg In 250 Sodium Chloride 0.9% 250 ml @ 250 mls/hr IVPB DAILY@1600 [facility] Rx#: [id number] Levofloxacin 750Mg-D5w 150 Pmx 750 mg In Dextrose/ Water 1 150ml.bag @ 100 mls/hr IVPB Q24H [facility] Rx#: [id number] Other: Voiding Method Toilet # Voids 2 Weight 86.183 kg 91 kg Results 08/11/22 06:27 08/11/22 06:27 Cardiac Enzymes 08/10/22 08/10/22 08/10/22 Range/Units 14:26 14:26 18:01 AST 93 H (14-36) U/L Troponin I 0.021 0.017 (0.000-0.034) ng/mL 08/10/22 Range/Units 21:12 AST (14-36) U/L Troponin I 0.019 (0.000-0.034) ng/mL Coagulation 08/10/22 Range/Units 14:26 PT 10.0 (9.0-12.0) sec APTT 25.4 (22.0-30.0) sec CBC 08/10/22 Range/Units 14:26 WBC 6.1 (3.8-10.6) k/uL RBC 2.89 L (3.80-5.40) m/uL Hgb 8.9 L (11.4-16.0) gm/dL Hct 26.0 L (34.0-46.0) % Plt Count 162 (150-450) k/uL Comprehensive Metabolic Panel 08/10/22 Range/Units 14:26 Sodium 127 L (137-145) mmol/L Potassium 4.9 (3.5-5.1) mmol/L Chloride 92 L (98-107) mmol/L Carbon Dioxide 26 (22-30) mmol/L BUN 71 H (7-17) mg/dL Creatinine 2.39 H (0.52-1.04) mg/dL Glucose 105 H (74-99) mg/dL Calcium 8.2 L (8.4-10.2) mg/dL AST 93 H (14-36) U/L ALT 69 H (4-34) U/L Alkaline Phosphatase 113 (38-126) U/L Total Protein 7.1 (6.3-8.2) g/dL Albumin 3.7 (3.5-5.0) g/dL Current Medications Generic Name Dose Route Start Last Admin Trade Name Freq PRN Reason Stop Dose Admin Albuterol Sulfate 2.5 mg 08/10/22 22:47 Albuterol Nebulized 2.5 Mg/3 Ml INHALATION RT-QID PRN Shortness Of Breath Amlodipine Besylate 10 mg 08/11/22 09:00 Amlodipine 10 Mg Tab PO DAILY [facility] Aspirin 81 mg 08/10/22 23:00 08/10/22 23:30 Aspirin 81 Mg PO 81 mg HS [facility]EN Administration Atorvastatin Calcium 20 mg 08/10/22 23:00 08/10/22 23:30 Atorvastatin 20 Mg Tab PO 20 mg HS [facility]EN Administration Bumetanide 4 mg 08/11/22 09:00 Bumetanide 1 Mg Tab PO BID [facility] Calcium Carbonate 1 each 08/11/22 09:00 Calcium Carb-Vit D 500 Mg-5 Mcg Tab PO BID [facility] Fluticasone Propionate 2 spray 08/11/22 09:00 Fluticasone 50mcg/[place] Nasal 16gm EA NOSTRIL DAILY [facility] Gabapentin 300 mg 08/11/22 17:00 Gabapentin 300 Mg Cap PO HS@1700 [facility] Heparin Sodium (Porcine) 5,000 unit 08/10/22 21:00 08/10/22 23:30 Heparin Sodium,Porcine/Pf 5,000 Unit/0.5 Ml Syringe SQ 5,000 unit Q12HR [facility] Administration Azithromycin 500 mg/ Sodium 250 mls @ 250 mls/hr 08/10/22 16:30 08/10/22 21:22 Chloride IVPB 08/12/22 16:59 250 mls/hr DAILY@1600 [facility] Administration Protocol Levofloxacin 750 mg/ IV 150 mls @ 100 mls/hr 08/10/22 16:00 08/10/22 16:08 Solution IVPB 100 mls/hr Q24H [facility] Administration Protocol Lactobacillus Acidoph/Bulgaricus 1 each 08/11/22 09:00 Lactobacillus Acidoph & Bulgar 1 Each Packet PO DAILY [facility] Loratadine 10 mg 08/11/22 09:00 Loratadine 10 Mg Tab PO DAILY [facility] Metolazone 5 mg 08/11/22 09:00 Metolazone 5 Mg Tab PO DAILY PRN edema/weight gain of 5lbs Metoprolol Succinate 100 mg 08/11/22 09:00 Metoprolol Succinate (Er) 100 Mg Tab.Er.24h PO DAILY [facility] Montelukast Sodium 10 mg 08/10/22 23:00 08/10/22 23:30 Montelukast 10 Mg Tab PO 10 mg HS [facility] Administration Multivitamins 1 each 08/11/22 09:00 Multivitamins, Thera 1 Each Tab PO DAILY [facility] Naloxone HCl 0.2 mg 08/10/22 15:35 Naloxone 0.4 Mg/Ml 1 Ml Vial IV Q2M PRN Opioid Reversal Pantoprazole Sodium 40 mg 08/11/22 09:00 Pantoprazole 40 Mg Tablet PO DAILY [facility] Prochlorperazine Maleate 10 mg 08/11/22 00:00 Prochlorperazine 10 Mg Tab PO Q6H PRN Nausea Spironolactone 25 mg 08/11/22 09:00 Spironolactone 25 Mg Tab PO DAILY [facility] Intake and Output 08/10/22 08/11/22 08/11/22 22:59 06:59 14:59 Intake Total 400 Balance 400 Intake: Intake, IV Titration 400 Amount Azithromycin 500 mg In 250 Sodium Chloride 0.9% 250 ml @ 250 mls/hr IVPB DAILY@1600 [facility] Rx#: [id number] Levofloxacin 750Mg-D5w 150 Pmx 750 mg In Dextrose/ Water 1 150ml.bag @ 100 mls/hr IVPB Q24H [facility] Rx#: [id number] Other: Voiding Method Toilet # Voids 2 Weight 86.183 kg 91 kg 08/10/22 14:26 08/10/22 14:26
[2022-08-11 10:16] LABS: Basophils # (M) 0 X 10*3/uL (0.00-0.10); Eosinophils # (M) 0.13 X 10*3/uL (0.04-0.35); Lymphocytes # (M) 1.28 X 10*3/uL (0.90-5.00); Monocytes # (M) 0.54 X 10*3/uL (0.20-1.00); Myelocytes % 2 % (0-0); Neutrophils # (M) 4.58 X 10*3/uL (2.00-8.90); Neutrophils % (M) 68 %; Promyelocytes # (M) 0.07 k/uL (0); Promyelocytes % 1 % (0-0)
[2022-08-11] MEDS: SODIUM CHLORIDE 0.9% 1,000 ML IV SCH (11:28)
--- NOTE | 2022-08-11 12:58 | CA ---
Transthoracic Echo Report Name: Ghada Beltran Age: 76 Gender: F : 1945 Exam Date: 08/11/2022 08:41 Exam Location: [facility] Ht (in): 67 Wt (lb): 200 Ordering Physician: Michael Ivey MD Attending/Referring Phys: Bale Sewer Gabriele Hodges RDCS Procedure CPT: Indications: History of CHF Cardiac Hx: Technical Quality: Fair Contrast 1: Total Dose (mL): Contrast 2: Total Dose (mL): MEASUREMENTS (Male / Female) Normal Values 2D ECHO LV Diastolic Diameter PLAX 5.0 cm 4.2 - 5.9 / 3.9 - 5.3 cm LV Systolic Diameter PLAX 3.6 cm IVS Diastolic Thickness 1.3 cm 0.6 - 1.0 / 0.6 - 0.9 cm LVPW Diastolic Thickness 1.2 cm 0.6 - 1.0 / 0.6 - 0.9 cm LV Relative Wall Thickness 0.5 RV Internal Dim ED PLAX 3.1 cm LA Systolic Diameter LX 5.7 cm 3.0 - 4.0 / 2.7 - 3.8 cm M-MODE Aortic Root Diameter MM 3.1 cm LA Systolic Diameter MM 5.9 cm LA Ao Ratio MM 1.9 AV Cusp Separation MM 2.1 cm DOPPLER AV Peak Velocity 199.9 cm/s AV Peak Gradient 16.0 mmHg LVOT Peak Velocity 202.3 cm/s LVOT Peak Gradient 16.4 mmHg MV Area PHT 3.0 cm??? MR Peak Velocity 571.5 cm/s MR Peak Gradient 130.7 mmHg Mitral E Point Velocity 153.9 cm/s Mitral A Point Velocity 179.6 cm/s Mitral E to A Ratio 0.9 MV Deceleration Time 249.1 ms TR Peak Velocity 446.2 cm/s TR Peak Gradient 79.7 mmHg Right Atrial Pressure 3.0 mmHg Pulmonary Artery Systolic Pressu 82.7 mmHg Right Ventricular Systolic Press 82.7 mmHg PV Peak Velocity 87.2 cm/s PV Peak Gradient 3.0 mmHg FINDINGS Left Ventricle Mildly increased septal wall thickness. Mildly increased posterior wall thickness. Left ventricular hypertrophy. Left ventricular ejection fraction is estimated at 50-55%. Right Ventricle Right ventricular dilatation. Normal right ventricular global systolic function. Right ventricular systolic pressure estimated at 80mm hg. Right Atrium Right atrial dilatation. Left Atrium Severely increased left atrial diameter. Mitral Valve Mitral annular calcification. Moderate to severe mitral regurgitation. Aortic Valve Trileaflet aortic valve. Thickened aortic valve without stenosis. No aortic regurgitation. Tricuspid Valve Severe tricuspid regurgitation. Pulmonic Valve Mild pulmonic regurgitation. Pericardium No pericardial effusion. No pleural effusion. Aorta Normal size aortic root and proximal ascending aorta. CONCLUSIONS Normal LV systolic function Moderate to severe mitral regurgitation Severe tricuspid regurgitation Dilated right ventricle Severe pulmonary hypertension Previewed by: Dr. Molina Knox MD (Electronically Signed) Final Date: 11 August 2022 12:58
--- NOTE | 2022-08-11 13:21 | P.NPCON ---
History of Present Illness - Reason for Consult acute renal failure - History of Present Illness Patient is a 76-year-old female who was admitted to the hospital with complaints of shortness of breath and increased weakness and fatigue. Patient states that she was diagnosed with pneumonia about a month ago and has not completely recovered yet. She continues to have episodes of shortness of breath. There is history of travel to [facility] last month. Patient tested positive for influenza A this admission. Serum creatinine was 2.39 and increased to 2.5 today. Previous creatinine at 2.0 on 08/06/2021 and a creatinine of 1.3 on 05/17/2021 Sodium was 127 on admission and it is up to 128 today. Patient states she has had low sodium levels previously about 2 weeks ago no other history of hyponatremia. Previous sodium at 138 on 08/06/2021 Patient admits to decreased oral intake over the past 3-4 weeks. She has not been eating much protein. Patient is also maintained on Bumex and patient states that she had increased her Bumex recently for a couple of extra doses as she had noticed decreased ur ine output. No history of abdominal pain diarrhea or vomiting. No significant abdominal pain. No history of use of NSAIDs regularly. Systolic blood pressure 120s since admission. No significant urinary symptoms. Review of Systems As per HPI. 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, right knee oa, positive factor 5 leiden History of Any Multi-Drug Resistant Organisms: None Reported Past Surgical History: Orthopedic Surgery Additional Past Surgical History / Comment(s): mastectomy, left total knee replacement, right chest wall mediport/power port Past Anesthesia/Blood Transfusion Reactions: No Reported Reaction Past Psychological History: No Psychological Hx Reported Smoking Status: Never smoker Past Alcohol Use History: Occasional Past Drug Use History: None Reported - Past Family History Father History Unknown: Yes Family Medical History: Unable to Obtain Additional Family Medical History / Comment(s): patient is adopted Medications and Allergies Home Medications Medication Instructions Recorded Confirmed Type Albuterol Inhaler [Ventolin Hfa 2 puff INHALATION RT-Q4H PRN 08/10/22 08/10/22 History Inhaler] Albuterol Nebulized [Ventolin 2.5 mg INHALATION RT-QID PRN 08/10/22 08/10/22 History Nebulized] Aspirin EC [Ecotrin Low Dose] 81 mg PO DAILY 08/10/22 08/10/22 History Atorvastatin [Lipitor] 20 mg PO HS 08/10/22 08/10/22 History Azithromycin [Zithromax] See Taper PO DAILY 08/10/22 08/10/22 History Bumetanide [BUMEX] 4 mg PO BID 08/10/22 08/10/22 History Calcium Carbonate/Vitamin D3 1 tab PO BID 08/10/22 08/10/22 History [Calcium 600 mg-D3 20 mcg (800 unit)] Co Q-10 100mg 100 mg PO BID 08/10/22 08/10/22 History Fexofenadine HCl [Amelia Allergy] 180 mg PO DAILY 08/10/22 08/10/22 History Fluticasone Nasal [place] [Flonase 2 spr EA NOSTRIL DAILY 08/10/22 08/10/22 History Nasal [place]] Gabapentin 300 mg PO HS@1700 08/10/22 08/10/22 History Labetalol [Trandate] 400 mg PO BID 08/10/22 08/10/22 History Lactobacillus Rhamnosus GG 1 cap PO DAILY 08/10/22 08/10/22 History [Culturelle] Lidocaine-Prilocaine Cream [Emla 1 applic TOPICAL DIRECTED PRN 08/10/22 08/10/22 History Cream 2.5%/2.5%] Metoprolol Succinate (ER) [Toprol 100 mg PO DAILY 08/10/22 08/10/22 History Xl] Montelukast [Singulair] 10 mg PO HS 08/10/22 08/10/22 History Multivitamins, Thera [Multivitamin 1 tab PO DAILY 08/10/22 08/10/22 History (formulary)] Omeprazole [PriLOSEC] 20 mg PO DAILY 08/10/22 08/10/22 History Prevagen 1 cap PO DAILY 08/10/22 08/10/22 History Prochlorperazine [Compazine] 10 mg PO Q6H PRN 08/10/22 08/10/22 History Spironolactone [Aldactone] 25 mg PO DAILY 08/10/22 08/10/22 History amLODIPine [Norvasc] 10 mg PO DAILY 08/10/22 08/10/22 History metOLazone [Zaroxolyn] 5 mg PO DAILY PRN 08/10/22 08/10/22 History Allergies Allergy/AdvReac Type Severity Reaction Status Date / Time tomato Allergy Rash/Hives Verified 08/10/22 15:48 all over from raw tomatoes Physical Exam Vitals: Vital Signs Temp Pulse Pulse Resp BP BP Pulse Ox 08/11/22 09:09 97.3 F L 62 18 132/61 93 L 08/11/22 07:55 95 08/11/22 02:00 98.1 F 64 18 131/68 94 L 08/10/22 20:30 98.3 F 60 20 122/68 95 08/10/22 17:59 92 L 08/10/22 17:51 97.4 F L 56 L 20 123/69 82 L 08/10/22 14:30 95 08/10/22 13:30 97.8 F 59 L 16 125/69 91 L Intake and Output 08/10/22 08/11/22 08/11/22 22:59 06:59 14:59 Intake Total 400 Balance 400 Intake: Intake, IV Titration 400 Amount Azithromycin 500 mg In 250 Sodium Chloride 0.9% 250 ml @ 250 mls/hr IVPB DAILY@1600 [facility] Rx#: [id number] Levofloxacin 750Mg-D5w 150 Pmx 750 mg In Dextrose/ Water 1 150ml.bag @ 100 mls/hr IVPB Q24H [facility] Rx#: [id number] Other: Voiding Method Toilet Toilet # Voids 2 Weight 86.183 kg 91 kg Patient is awake, comfortable, no acute distress Alert oriented 3 Examination of the heart S1 and S2 Examination lungs bilateral breath sounds are heard, scattered wheezing heard Abdomen is soft nontender Examination lower extremities shows no significant edema. 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 Acute kidney injury appears to be mostly prerenal. Rule out urine retention. UA shows trace protein and trace blood no significant cells. Ultrasound of the kidneys has been ordered 2. Hyponatremia possibly hypovolemic. Will challenge with normal saline and h old off on loop diuretics. They may be a component of tea and toast syndrome with decreased oral intake recently particularly protein. Urine osmolality and urine sodium will be ordered as well. 3. Influenza A infection with possible pneumonia 4. History of CHF with initial chest x-ray yesterday showing some pulmonary vascular congestion however patient clinically does not appear to be volume o verloaded. 5. Chronic kidney disease with previous creatinine at 2.0 on 08/06/2021. I'm not sure if this was an episode of acute kidney injury. Previous creatinine 1.3 on 05/17/2021. Etiology likely nephrosclerosis. 6. Anemia rule out iron deficiency Plan: Challenge with normal saline as patient clinically does not appear to be in volume overload Repeat sodium this afternoon Check urine sodium and urine osmolality Check bladder scan Check ultrasound of the kidneys Repeat labs in a.m. Avoid nephrotoxic agents Hold diuretics for today Check iron profile Thank you for the consultation. We will continue to follow the patient with you during her hospitalization
[2022-08-11] MEDS: AZITHROMYCIN 500 MG in SODIUM CHLORIDE 0.9% 250 ML IVPB SCH (15:55)
[2022-08-11] MEDS ORDERED: GABAPENTIN 300 MG CAP PO SCH (17:00)
[2022-08-11] MEDS ORDERED: ACETAMINOPHEN TAB 325 MG TAB PO PRN (18:56)
[2022-08-11] MEDS: ATORVASTATIN 20 MG TAB PO SCH (21:36)
[2022-08-11] MEDS: ASPIRIN 81 MG PO SCH (21:36)
[2022-08-11] MEDS: MONTELUKAST 10 MG TAB PO SCH (21:37)
[2022-08-12] MEDS: SODIUM CHLORIDE 0.9% 1,000 ML IV SCH ×2 (00:09→09:24)
[2022-08-12] MEDS: HEPARIN SODIUM,PORCINE/PF 5,000 UNIT/0.5 ML SYRINGE SQ SCH (08:18)
[2022-08-12] MEDS: LORATADINE 10 MG TAB PO SCH (08:18)
[2022-08-12] MEDS: PANTOPRAZOLE 40 MG TABLET PO SCH (08:18)
[2022-08-12] MEDS: CALCIUM CARB-VIT D 500 MG-5 MCG TAB PO SCH (08:18)
[2022-08-12] MEDS: METOPROLOL SUCCINATE (ER) 100 MG TAB.ER.24H PO SCH (08:18)
[2022-08-12] MEDS: LACTOBACILLUS ACIDOPH & BULGAR 1 EACH PACKET PO SCH ×2 (08:18→08:39)
[2022-08-12] MEDS: amLODIPine 10 MG TAB PO SCH (08:18)
[2022-08-12] MEDS: SPIRONOLACTONE 25 MG TAB PO SCH (08:18)
[2022-08-12] MEDS: FLUTICASONE 50MCG/SPRAY NASAL 16GM EA NOSTRIL SCH (08:18)
[2022-08-12] MEDS: MULTIVITAMINS, THERA 1 EACH TAB PO SCH (08:18)
[2022-08-12 08:23] VITALS: BP 131/62; TEMP 97.6
--- NOTE | 2022-08-12 08:35 | P.PN ---
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 She has significant complicated cardiac history. She comes in with significant dyspnea on exertion. Echocardiogram was done which showed significant regurgitation and valvulopathy. The patient also nephrology consulted and her loop diuretic was held yesterday due to the fact that she was hyponatremic and hypokalemic with acute kidney injury picture. I did explain to her the complexity of her case which she does understand. CMP is pending for this morning. Objective - Vital Signs Vital signs: Vital Signs Temp 97.6 F 08/12/22 07:15 Pulse 63 08/12/22 07:15 Resp 19 08/12/22 07:15 BP 131/62 08/12/22 07:15 Pulse Ox 94 L 08/12/22 08:10 FiO2 Intake & Output 08/11/22 08/12/22 08/12/22 18:59 06:59 18:59 Intake Total 10 Output Total 300 600 Balance -300 -590 Weight 92.5 kg Intake: IV 10 Invasive Line 1 10 Output: Urine 300 600 Other: Voiding Method Toilet - Constitutional General appearance: Present: average body habitus - EENT Eyes: Absent: abnormal pupil - Neck Neck: Absent: lymphadenopathy - Respiratory Respiratory: bilateral: diminished - Cardiovascular Rhythm: regular Heart sounds: normal: S1, S2 Abnormal Heart Sounds: Absent: S3 Gallop - Gastrointestinal General gastrointestinal: Present: soft. Absent: tenderness - Neurologic Neurologic: Absent: CNII-XII intact - Labs CBC & Chem 7: 08/11/22 06:27 08/11/22 15:50 Labs: Abnormal Lab Results - Last 24 Hours (Table) 08/11/22 08/11/22 08/11/22 Range/Units 06:27 06:27 15:50 RBC 2.50 L (4.10-5.20) X 10*6/uL Hgb 7.7 L (12.0-15.0) g/dL Hct 23.5 L (37.2-46.3) % RDW 16.6 H (11.5-14.5) % Absolute Nucleated RBC 0.22 H (0.00-0.00) X 10*3/uL Myelocytes % 2 H (0-0) % Promyelocytes % 1 H (0-0) % NRBC/100 WBC Diff 3.3 H (0.0-0.0) /100 WBCS Sodium 128 L 126 L (135-145) mmol/L Chloride 91 L (96-109) mmol/L BUN 59.4 H (9.0-27.0) mg/dL Creatinine 2.5 H (0.6-1.5) mg/dL Est GFR (CKD-EPI)AfAm 21.6 L (60.0-200.0) Est GFR (CKD-EPI)NonAf 18.6 L (60.0-200.0) BUN/Creatinine Ratio 24.24 H (12.00-20.00) Ratio Calcium 8.3 L (8.7-10.3) mg/dL Microbiology - Last 24 Hours (Table) 08/10/22 16:15 Blood Culture - Preliminary Blood No Growth after 24 hours 08/10/22 16:00 Blood Culture - Preliminary Blood No Growth after 24 hours Assessment and Plan (1) RYAN (acute kidney injury) Current Visit: Yes Status: Acute Code(s): N17.9 - ACUTE KIDNEY FAILURE, UNSPECIFIED SNOMED Code(s): 05168456 (2) Concussion Current Visit: Yes Status: Acute Code(s): S06.0XAA - CONCUSSION WITH LOC STATUS UNKNOWN, INITIAL ENCOUNTER SNOMED Code(s): 173598599 (3) History of CHF (congestive heart failure) Current Visit: Yes Status: Acute Code(s): Z86.79 - PERSONAL HISTORY OF OTHER DISEASES OF THE CIRCULATORY SYSTEM SNOMED Code(s): 525820603 (4) Hyponatremia Current Visit: No Status: Acute Code(s): E87.1 - HYPO-OSMOLALITY AND HYPONATREMIA SNOMED Code(s): 92997512 (5) Pneumonia Current Visit: Yes Status: Acute Code(s): J18.9 - PNEUMONIA, UNSPECIFIED ORGANISM SNOMED Code(s): 450014589 Plan: Await nephrology adjustment of her loop diuretic. Check CMP in a.m. If she has to stay. I hope that the patient can be discharged with nephrology consent. Pulse oximetry on room air has improved we will check with activity. 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
[2022-08-12] MEDS ORDERED: LEVOFLOXACIN 500MG-D5W PMX 500 MG in DEXTROSE/WATER 1 100ML.BAG IVPB SCH (09:00)
[2022-08-12 09:15] LABS: HCT 24.5 % (37.2-46.3); HGB 7.9 g/dL (12.0-15.0); MCHC 32.2 g/dL (32.0-37.0); MCV 96.1 fL (80.0-97.0); Mean Platelet Volume 10.3 fL (9.5-12.2); NRBC Per 100 WBC 2.6 /100 WBCS (0.0-0.0); Platelet Count 178 X 10*3/uL (140-440); RBC 2.55 X 10*6/uL (4.10-5.20); WBC 7.67 X 10*3/uL (4.50-10.00)
[2022-08-12 09:32] VITALS: PULSE 71
[2022-08-12 09:36] LABS: African American GFR (CKD) 25.6 (60.0-200.0); Albumin 3.1 g/dL (3.8-4.9); Albumin/Globulin Ratio 1.17 (1.60-3.17); Anion Gap 9.6 mmol/L (10.00-18.00); BUN/Creat Ratio 25.16 Ratio (12.00-20.00); Blood Urea Nitrogen 53.6 mg/dL (9.0-27.0); Calcium 8.3 mg/dL (8.7-10.3); Carbon Dioxide 26.8 mmol/L (20.0-27.5); Globulin 2.6 g/dL (1.6-3.3); Non-African American GFR(CKD) 22.1 (60.0-200.0); Potassium 3.9 mmol/L (3.5-5.5); Total Bilirubin 0.6 mg/dL (0.30-1.20); Total Protein 5.7 g/dL (6.2-8.2)
--- NOTE | 2022-08-12 09:39 | P.PN ---
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 Patient follows with a cyber intel planner out of [facility]. We have been asked to see the patient in consultation for congestive heart failure. Patient examined at the bedside. Patient states she presented to the hospital secondary to shortness of breath and a cough. She states her pulse ox at home was found to be 85%. She states she has been dealing with pneumonia since the beginning of July and has been through 3 rounds of antibiotics. She reports feeling congested at home. She denied having any fever or chills. She currently denies any shortness of breath. The patient was found to be positive for influenza A. The patient does report a history of congestive heart failure. She is prescribed Bumex, Aldactone, and Zaroxolyn on an outpatient basis. She states that her congestive heart failure was caused by one of her chemotherapy agents. * EKG reveals sinus mechanism with no signs of acute ischemia * Chest xray cardiomegaly with mild pulmonary vascular congestion. Correlate with clinical history to rule out underlying multifocal infection. * Laboratory data: WBC 6.74. Hemoglobin 7.7. Platelet count 161. Sodium 128. Potassium 4.0. BUN 59.4. Creatinine 2.5. Troponin negative 3. ProBNP 17,000. * Current home cardiac medications include Zaroxolyn 5 mg daily as needed, amlodipine 10 mg daily, spironolactone 25 mg daily, metoprolol succinate 100 mg daily, labetalol 400 mg twice a day, Bumex 4 mg twice a day, Lipitor 20 mg at night, and aspirin 81 mg daily 08/12/2022 Patient examined this morning. Patient is sitting up in the chair. Patient denies chest pain or pressure. She denies shortness of breath. Vital signs are stable. She is currently on room air with oxygen saturations greater then 92%. Sodium today 131. Creatinine 2.1. Echocardiogram completed revealing ejection fraction 50-55%, moderate to severe MR, and severe tricuspid regurgitation. PHYSICAL EXAM: VITAL SIGNS: Reviewed. GENERAL: Well-developed in no acute distress. HEENT: Head is normocephalic. Pupils are equal, round. Sclerae anicteric. Mucous membranes of the mouth are moist. Neck supple. No JVD or thyromegaly LUNGS: Respirations even and unlabored. Lungs diminished bilaterally. HEART: Regular rate and rhythm. S1 and S2 heard. Systolic murmur noted ABDOMEN: Soft. Nondistended. Nontender. EXTREMITIES: Normal range of motion. No clubbing or cyanosis. Peripheral pulses intact. No lower extremity edema NEUROLOGIC: Awake and alert. Oriented x 3. 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 Please reconsult if needed. Nurse practitioner note has been reviewed by physician. Signing provider agrees with the documented findings, assessment, and plan of care. Objective - Vital Signs Vital signs: Vital Signs Temp 97.6 F 08/12/22 07:15 Pulse 68 08/12/22 08:39 Resp 19 08/12/22 07:15 BP 131/62 08/12/22 07:15 Pulse Ox 92 L 08/12/22 08:39 FiO2 Intake & Output 08/11/22 08/12/22 08/12/22 18:59 06:59 18:59 Intake Total 10 Output Total 300 600 Balance -300 -590 Weight 92.5 kg Intake: IV 10 Invasive Line 1 10 Output: Urine 300 600 Other: Voiding Method Toilet - Labs CBC & Chem 7: 08/12/22 06:11 08/12/22 06:11 Labs: Abnormal Lab Results - Last 24 Hours (Table) 08/11/22 08/11/22 08/12/22 Range/Units 06:27 15:50 06:11 RBC 2.55 L (4.10-5.20) X 10*6/uL Hgb 7.9 L (12.0-15.0) g/dL Hct 24.5 L (37.2-46.3) % RDW 17.0 H (11.5-14.5) % Absolute Nucleated RBC 0.20 H (0.00-0.00) X 10*3/uL Myelocytes % 2 H (0-0) % Promyelocytes % 1 H (0-0) % NRBC/100 WBC Diff 2.6 H (0.0-0.0) /100 WBCS Sodium 126 L (137-145) mmol/L Chloride (96-109) mmol/L Anion Gap (10.00-18.00) mmol/L BUN (9.0-27.0) mg/dL Creatinine (0.6-1.5) mg/dL Est GFR (CKD-EPI)AfAm (60.0-200.0) Est GFR (CKD-EPI)NonAf (60.0-200.0) BUN/Creatinine Ratio (12.00-20.00) Ratio Calcium (8.7-10.3) mg/dL AST (13-35) U/L ALT (8-44) U/L Total Protein (6.2-8.2) g/dL Albumin (3.8-4.9) g/dL Albumin/Globulin Ratio (1.60-3.17) g/dL 08/12/22 Range/Units 06:11 RBC (4.10-5.20) X 10*6/uL Hgb (12.0-15.0) g/dL Hct (37.2-46.3) % RDW (11.5-14.5) % Absolute Nucleated RBC (0.00-0.00) X 10*3/uL Myelocytes % (0-0) % Promyelocytes % (0-0) % NRBC/100 WBC Diff (0.0-0.0) /100 WBCS Sodium 131 L (137-145) mmol/L Chloride 95 L (96-109) mmol/L Anion Gap 9.60 L (10.00-18.00) mmol/L BUN 53.6 H (9.0-27.0) mg/dL Creatinine 2.1 H (0.6-1.5) mg/dL Est GFR (CKD-EPI)AfAm 25.6 L (60.0-200.0) Est GFR (CKD-EPI)NonAf 22.1 L (60.0-200.0) BUN/Creatinine Ratio 25.16 H (12.00-20.00) Ratio Calcium 8.3 L (8.7-10.3) mg/dL AST 91 H (13-35) U/L ALT 61 H (8-44) U/L Total Protein 5.7 L (6.2-8.2) g/dL Albumin 3.1 L (3.8-4.9) g/dL Albumin/Globulin Ratio 1.17 L (1.60-3.17) g/dL Microbiology - Last 24 Hours (Table) 08/10/22 16:15 Blood Culture - Preliminary Blood No Growth after 24 hours 08/10/22 16:00 Blood Culture - Preliminary Blood No Growth after 24 hours
[2022-08-12 12:31] VITALS: RESP 18
--- NOTE | 2022-08-12 12:58 | P.DS ---
Providers Date of admission: 08/10/22 15:36 Attending physician: Greyson Galdamez Consults: 08/11/22 08:21 Consult Physician Routine Consulting Provider: Percy Ravi Consult Reason/Comments: ryan Do you want consulting provider notified?: Yes Primary care physician: Greyson Galdamez - Discharge Diagnosis(es) (1) RYAN (acute kidney injury) Current Visit: Yes Status: Acute (2) Concussion Current Visit: Yes Status: Acute (3) History of CHF (congestive heart failure) Current Visit: Yes Status: Acute (4) Hyponatremia Current Visit: No Status: Acute (5) Pneumonia Current Visit: Yes Status: Acute Hospital Course: This is discharge summary 76-year-old white female essentially admitted for dyspnea on exertion. Found to have significant pulmonary hypertension secondary to valvulopathy with significant regurgitant valves. Ejection fraction is appropriate however. She has an underlying history of breast Sarcoma valvulopathy and renal disease. She was also admitted for influenza A and renal insufficiency. Multiple consultants including cardiology and nephrology were consulted medications have been adjusted to her agreement. The patient was discharged in stable condition to follow-up with me in about 5-7 days Patient Condition at Discharge: Stable Plan - Discharge Summary Discharge Rx Participant: No New Discharge Prescriptions: Continue Multivitamins, Thera [Multivitamin (formulary)] 1 tab PO DAILY Spironolactone [Aldactone] 25 mg PO DAILY Omeprazole [PriLOSEC] 20 mg PO DAILY metOLazone [Zaroxolyn] 5 mg PO DAILY PRN PRN Reason: edema/weight gain of 5lbs Montelukast [Singulair] 10 mg PO HS Metoprolol Succinate (ER) [Toprol XL] 100 mg PO DAILY Lidocaine-Prilocaine Cream [Emla Cream 2.5%/2.5%] 1 applic TOPICAL DIREC TRIP PRN PRN Reason: port access Gabapentin 300 mg PO HS@1700 Azithromycin [Zithromax Z Pack] See Taper PO DAILY Atorvastatin [Lipitor] 20 mg PO HS amLODIPine [Norvasc] 10 mg PO DAILY Lactobacillus Rhamnosus GG [Culturelle] 1 cap PO DAILY Co Q-10 100mg 100 mg PO BID Calcium Carbonate/Vitamin D3 [Calcium 600 mg-D3 20 mcg (800 unit)] 1 tab PO BID Fluticasone Nasal [place] [Flonase Nasal [place]] 2 spr EA NOSTRIL DAILY Fexofenadine HCl [Amelia Allergy] 180 mg PO DAILY Aspirin EC [Ecotrin Low Dose] 81 mg PO DAILY Prochlorperazine [Compazine] 10 mg PO Q6H PRN PRN Reason: Nausea Prevagen 1 cap PO DAILY Albuterol Inhaler [Ventolin Hfa Inhaler] 2 puff INHALATION RT-Q4H PRN PRN Reason: Shortness Of Breath Labetalol [Trandate] 400 mg PO BID Bumetanide [BUMEX] 4 mg PO BID Albuterol Nebulized [Ventolin Nebulized] 2.5 mg INHALATION RT-QID PRN PRN Reason: Shortness Of Breath Discharge Medication List Albuterol Inhaler [Ventolin Hfa Inhaler] 2 puff INHALATION RT-Q4H PRN 08/10/22 [History] Albuterol Nebulized [Ventolin Nebulized] 2.5 mg INHALATION RT-QID PRN 08/10/22 [History] Aspirin EC [Ecotrin Low Dose] 81 mg PO DAILY 08/10/22 [History] Atorvastatin [Lipitor] 20 mg PO HS 08/10/22 [History] Azithromycin [Zithromax Z Pack] See Taper PO DAILY 08/10/22 [History] Bumetanide [BUMEX] 4 mg PO BID 08/10/22 [History] Calcium Carbonate/Vitamin D3 [Calcium 600 mg-D3 20 mcg (800 unit)] 1 tab PO BID 08/10/22 [History] Co Q-10 100mg 100 mg PO BID 08/10/22 [History] Fexofenadine HCl [Amelia Allergy] 180 mg PO DAILY 08/10/22 [History] Fluticasone Nasal [place] [Flonase Nasal [place]] 2 spr EA NOSTRIL DAILY 08/10/22 [History] Gabapentin 300 mg PO HS@1700 08/10/22 [History] Labetalol [Trandate] 400 mg PO BID 08/10/22 [History] Lactobacillus Rhamnosus GG [Culturelle] 1 cap PO DAILY 08/10/22 [History] Lidocaine-Prilocaine Cream [Emla Cream 2.5%/2.5%] 1 applic TOPICAL DIRECTED PRN 08/10/22 [History] Metoprolol Succinate (ER) [Toprol XL] 100 mg PO DAILY 08/10/22 [History] Montelukast [Singulair] 10 mg PO HS 08/10/22 [History] Multivitamins, Thera [Multivitamin (formulary)] 1 tab PO DAILY 08/10/22 [History] Omeprazole [PriLOSEC] 20 mg PO DAILY 08/10/22 [History] Prevagen 1 cap PO DAILY 08/10/22 [History] Prochlorperazine [Compazine] 10 mg PO Q6H PRN 08/10/22 [History] Spironolactone [Aldactone] 25 mg PO DAILY 08/10/22 [History] amLODIPine [Norvasc] 10 mg PO DAILY 08/10/22 [History] metOLazone [Zaroxolyn] 5 mg PO DAILY PRN 08/10/22 [History] Follow up Appointment(s)/Referral(s): [facility] [NON-STAFF] - As Needed (oxygen ) Greyson Galdamez MD [Primary Care Provider] - 1-2 days
--- NOTE | 2022-08-12 13:28 | P.PN ---
Subjective Patient is seen for follow-up for chronic kidney disease and acute kidney injury. Patient tested positive for influenza A. Diuretics were held yesterday and patient was started on IV fluids. Sodium has improved to 131 today and serum creatinine has also improved to 2.1 mg/dL. Patient overall feels well. No significant complaints today. Objective - Vital Signs Vital signs: Vital Signs Temp 97.6 F 08/12/22 07:15 Pulse 68 08/12/22 08:39 Resp 18 08/12/22 08:00 BP 131/62 08/12/22 07:15 Pulse Ox 92 L 08/12/22 08:39 FiO2 Intake & Output 08/11/22 08/12/22 08/12/22 18:59 06:59 18:59 Intake Total 10 Output Total 300 600 Balance -300 -590 Weight 92.5 kg Intake: IV 10 Invasive Line 1 10 Output: Urine 300 600 Other: Voiding Method Toilet Toilet - Exam Awake, comfortable, no acute distress Examination of the heart S1 and S2 Examination of the lungs decreased breath sounds at the bases Abdomen is soft obese nontender Examination of lower extremity shows edema 1+ bilaterally with chronic skin changes 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 grossly intact - Labs CBC & Chem 7: 08/12/22 06:11 08/12/22 06:11 Labs: Abnormal Lab Results - Last 24 Hours (Table) 08/11/22 08/12/22 08/12/22 Range/Units 15:50 06:11 06:11 RBC 2.55 L (4.10-5.20) X 10*6/uL Hgb 7.9 L (12.0-15.0) g/dL Hct 24.5 L (37.2-46.3) % RDW 17.0 H (11.5-14.5) % Absolute Nucleated RBC 0.20 H (0.00-0.00) X 10*3/uL NRBC/100 WBC Diff 2.6 H (0.0-0.0) /100 WBCS Sodium 126 L 131 L (137-145) mmol/L Chloride 95 L (96-109) mmol/L Anion Gap 9.60 L (10.00-18.00) mmol/L BUN 53.6 H (9.0-27.0) mg/dL Creatinine 2.1 H (0.6-1.5) mg/dL Est GFR (CKD-EPI)AfAm 25.6 L (60.0-200.0) Est GFR (CKD-EPI)NonAf 22.1 L (60.0-200.0) BUN/Creatinine Ratio 25.16 H (12.00-20.00) Ratio Calcium 8.3 L (8.7-10.3) mg/dL AST 91 H (13-35) U/L ALT 61 H (8-44) U/L Total Protein 5.7 L (6.2-8.2) g/dL Albumin 3.1 L (3.8-4.9) g/dL Albumin/Globulin Ratio 1.17 L (1.60-3.17) g/dL Microbiology - Last 24 Hours (Table) 08/10/22 16:15 Blood Culture - Preliminary Blood No Growth after 24 hours 08/10/22 16:00 Blood Culture - Preliminary Blood No Growth after 24 hours
--- NOTE | 2022-08-12 22:30 | P.PN ---
Subjective Patient is seen for follow-up for chronic kidney disease and acute kidney injury. Patient tested positive for influenza A. Diuretics were held yesterday and patient was started on IV fluids. Sodium has improved to 131 today and serum creatinine has also improved to 2.1 mg/dL. Patient overall feels well. No significant complaints today. Objective - Vital Signs Vital signs: Vital Signs Temp 97.6 F 08/12/22 07:15 Pulse 68 08/12/22 08:39 Resp 18 08/12/22 08:00 BP 131/62 08/12/22 07:15 Pulse Ox 92 L 08/12/22 08:39 FiO2 Intake & Output 08/12/22 08/12/22 08/13/22 06:59 18:59 06:59 Intake Total 10 Output Total 600 Balance -590 Weight 92.5 kg Intake: IV 10 Invasive Line 1 10 Output: Urine 600 Other: Voiding Method Toilet - Exam Awake, comfortable, no acute distress Examination of the heart S1 and S2 Examination of the lungs decreased breath sounds at the bases Abdomen is soft obese nontender Examination of lower extremity shows edema 1+ bilaterally with chronic skin changes DEGREASER exam grossly intact - Labs CBC & Chem 7: 08/12/22 06:11 08/12/22 06:11 Labs: Abnormal Lab Results - Last 24 Hours (Table) 08/12/22 08/12/22 Range/Units 06:11 06:11 RBC 2.55 L (4.10-5.20) X 10*6/uL Hgb 7.9 L (12.0-15.0) g/dL Hct 24.5 L (37.2-46.3) % RDW 17.0 H (11.5-14.5) % Absolute Nucleated RBC 0.20 H (0.00-0.00) X 10*3/uL NRBC/100 WBC Diff 2.6 H (0.0-0.0) /100 WBCS Sodium 131 L (135-145) mmol/L Chloride 95 L (96-109) mmol/L Anion Gap 9.60 L (10.00-18.00) mmol/L BUN 53.6 H (9.0-27.0) mg/dL Creatinine 2.1 H (0.6-1.5) mg/dL Est GFR (CKD-EPI)AfAm 25.6 L (60.0-200.0) Est GFR (CKD-EPI)NonAf 22.1 L (60.0-200.0) BUN/Creatinine Ratio 25.16 H (12.00-20.00) Ratio Calcium 8.3 L (8.7-10.3) mg/dL AST 91 H (13-35) U/L ALT 61 H (8-44) U/L Total Protein 5.7 L (6.2-8.2) g/dL Albumin 3.1 L (3.8-4.9) g/dL Albumin/Globulin Ratio 1.17 L (1.60-3.17) g/dL Microbiology - Last 24 Hours (Table) 08/10/22 16:00 Blood Culture - Preliminary Blood No Growth after 48 hours 08/10/22 16:15 Blood Culture - Preliminary Blood No Growth after 48 hours Assessment and Plan Assessment: 1. Acute kidney injury appears to be mostly prerenal. Rule out urine retention. UA shows trace protein and trace blood no significant cells. Ultrasound of the kidneys shows no hydronephrosis. 2. Hyponatremia possibly hypovolemic. Improved with saline.. There may be a component of tea and toast syndrome with decreased oral intake recently particularly protein. Urine osmolality and urine sodium will be ordered as well. 3. Influenza A infection with possible pneumonia 4. History of CHF with initial chest x-ray yesterday showing some pulmonary vascular congestion however patient clinically does not appear to be volume overloaded. 5. Chronic kidney disease with previous creatinine at 2.0 on 08/06/2021. I'm not sure if this was an episode of acute kidney injury. Previous creatinine 1.3 on 05/17/2021. Etiology likely nephrosclerosis. NKF stage 3b 6. Anemia rule out iron deficiency Plan: Can be discharged today Take 2mg bid of Bumex for 1 day , then resume home dose of 4mg bid F/u as op with edge dyer at [facility].
== END 2022-08-12 15:00 | disposition home or self-care (01) | DRG 193 ==
LOC: EC 13:27 → 4SSUR 15:36
PROVIDERS: ADMIT Family Medicine; ATTEND Family Medicine
PROC: B246ZZ4 Ultrasonography of Right and Left Heart, Transesophageal (ICD-10-PCS; principal; 2022-08-11)
DX: J10.00 Influenza due to other identified influenza virus with unspecified type of pneumonia (principal); I50.33 Acute on chronic diastolic (congestive) heart failure; J96.01 Acute respiratory failure with hypoxia; I13.0 Hypertensive heart and chronic kidney disease with heart failure and stage 1 through stage 4 chronic kidney disease, or unspecified chronic kidney disease; S06.0X9A Concussion with loss of consciousness of unspecified duration, initial encounter; I42.7 Cardiomyopathy due to drug and external agent; N17.9 Acute kidney failure, unspecified; C49.9 Malignant neoplasm of connective and soft tissue, unspecified; N18.4 Chronic kidney disease, stage 4 (severe); D68.51 Activated protein C resistance; E87.1 Hypo-osmolality and hyponatremia; Z20.822 Contact with and (suspected) exposure to COVID-19; J18.9 Pneumonia, unspecified organism; E78.5 Hyperlipidemia, unspecified; D64.9 Anemia, unspecified; T45.1X5A Adverse effect of antineoplastic and immunosuppressive drugs, initial encounter; I08.1 Rheumatic disorders of both mitral and tricuspid valves; M19.90 Unspecified osteoarthritis, unspecified site; E87.6 Hypokalemia; E87.8 Other disorders of electrolyte and fluid balance, not elsewhere classified; I27.20 Pulmonary hypertension, unspecified; Z79.899 Other long term (current) drug therapy; Z79.82 Long term (current) use of aspirin; Z85.3 Personal history of malignant neoplasm of breast; Z90.12 Acquired absence of left breast and nipple; Z66 Do not resuscitate; Z87.01 Personal history of pneumonia (recurrent); Z91.02 Food additives allergy status; Z96.653 Presence of artificial knee joint, bilateral; X58.XXXA Exposure to other specified factors, initial encounter
CPT/HCPCS: 36415; 71046; 80048; 80053; 81001; 83605; 83735; 83880; 83935; 84295; 84300; 84484; 85025; 85027; 85610; 85730; 87040; 87636; 93005; 93306; 94760; 96365; 96366; 96375; 99285

== ENCOUNTER → 2023-11-15 | Outpatient (CLI) | payer MEDICARE | END | disposition home or self-care (01) | LOC: LABWHC1 13:13 | PROVIDERS: ATTEND Internal Medicine Nephrology | DX: I50.32 Chronic diastolic (congestive) heart failure (principal) | CPT/HCPCS: 36415; 83880 ==

== ENCOUNTER 2024-05-31 13:48 | Inpatient (IN) | payer MEDICARE ==
--- NOTE | 2024-05-31 14:55 | ED ---
SOB HPI - General Source: RN notes reviewed Mode of arrival: wheelchair Limitations: no limitations - History of Present Illness Complaint: shortness of breath <Frankie Kim - Last Filed: 05/31/24 14:52> <Khloe Rodriguez - Last Filed: 06/01/24 13:18> - General Stated Complaint: PARTH Time Seen by Provider: 05/31/24 14:05 - History of Present Illness Initial Comments: Quick note: This is a 78-year-old female presenting with dyspnea and hypoxia. Patient endorses upcoming blood transfusion with Dr. Galdamez earlier today but instead came to the ER due to low pulse oximeter readings between the 50s and low 70s despite use of O2 via nasal cannula. Patient endorses undergoing chemotherapy and was receiving blood transfusions at [facility]. States that she was advised to come to the ER for admission so she can continue receiving blood transfusions while admitted. Patient denies fever, chills, chest pain, dizziness, hemoptysis. 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 She had chemo on Monday. States that shortly afterwards she became short of breath. There was concern from her care team that she was starting to retain some fluid and therefore they told her to take 100 mg of torsemide on Monday. She also took 50 mg of torsemide yesterday. She states that this has not helped in her breathing remains difficult. She has gained weight. She had oxygen saturations in the 50s at home via her nasal cannula. They just recently increased her to 10 L. She denies chest pain. Does have a history of asthma. Patient reports to getting Neulasta injections with her chemo. She goes to chemo twice per week on Mondays and Wednesdays and then takes 2 weeks off. She also reports that she has required some blood transfusions because of low blood counts. She was supposed to get 1 after her last chemotherapy session however there was some difficulties with the orders. She admits to a productive cough with clear sputum. She has also had some streaks of blood in her cough which she states is also chronic for her. She admits to lower extremity edema. No fevers. Upon arrival to the hospital the patient's oxygen saturation is 63%. no other alleviating, precipitating modifying factors (Khloe Rodriguez) - Related Data Home Medications Medication Instructions Recorded Confirmed Albuterol Inhaler [Ventolin Hfa 2 puff INHALATION RT-Q4H PRN 08/10/22 05/31/24 Inhaler] Atorvastatin [Lipitor] 20 mg PO HS 08/10/22 05/31/24 Fexofenadine HCl [Amelia Allergy] 180 mg PO DAILY 08/10/22 05/31/24 Fluticasone Nasal [place] [Flonase 2 spr EA NOSTRIL DAILY 08/10/22 05/31/24 Nasal [place]] Gabapentin 600 mg PO BID@1600,2100 08/10/22 05/31/24 Lactobacillus Rhamnosus GG 1 cap PO DAILY 08/10/22 05/31/24 [Culturelle] Lidocaine-Prilocaine Cream [Emla 1 applic TOPICAL DAILY PRN 08/10/22 05/31/24 Cream 2.5%/2.5%] Montelukast [Singulair] 10 mg PO HS 08/10/22 05/31/24 Omeprazole [PriLOSEC] 20 mg PO DAILY 08/10/22 05/31/24 Prochlorperazine [Compazine] 10 mg PO Q6H PRN 08/10/22 05/31/24 amLODIPine [Norvasc] 10 mg PO HS 08/10/22 05/31/24 Sennosides [Senokot] 17.2 mg PO DAILY PRN 05/31/24 05/31/24 Sodium Zirconium Cyclosilicate 10 gm PO DAILY PRN 05/31/24 05/31/24 [Lokelma] Torsemide [Demadex] 50 mg PO DAILY PRN 05/31/24 05/31/24 Torsemide [Demadex] 50 mg PO GUZMAN 05/31/24 05/31/24 Ubidecarenone [Coenzyme Q10] 100 mg PO BID 05/31/24 05/31/24 carvediloL [Coreg] 3.125 mg PO BID 05/31/24 05/31/24 fentaNYL 12MCG/HR PATCH [Duragesic 1 patch TRANSDERM Q72H 05/31/24 05/31/24 12MCG/HR] hydrALAZINE HCL [Apresoline] 25 mg PO BID 05/31/24 05/31/24 hydrALAZINE HCL [Apresoline] 25 mg PO DAILY PRN 05/31/24 05/31/24 oxyCODONE HCL [OxyIR] 5 mg PO Q6H PRN 05/31/24 05/31/24 polyethylene glycoL 3350 [Miralax] 17 gm PO DAILY PRN 05/31/24 05/31/24 Allergies Allergy/AdvReac Type Severity Reaction Status Date / Time tomato Allergy Rash/Hives Verified 05/31/24 19:18 all over from raw tomatoes Review of Systems ROS Other: All systems not noted in ROS Statement are negative. <Frankie Kim - Last Filed: 05/31/24 14:52> ROS Other: All systems not noted in ROS Statement are negative. <Khloe Rodriguez - Last Filed: 06/01/24 13:18> ROS Statement: Those systems with pertinent positive or pertinent negative responses have been documented in the HPI. 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, right knee oa, positive factor 5 leiden History of Any Multi-Drug Resistant Organisms: None Reported Past Surgical History: Orthopedic Surgery Additional Past Surgical History / Comment(s): mastectomy, left total knee replacement, right chest wall mediport/power port Past Anesthesia/Blood Transfusion Reactions: No Reported Reaction Past Psychological History: No Psychological Hx Reported Smoking Status: Never smoker Past Alcohol Use History: Occasional Past Drug Use History: None Reported - Past Family History Father History Unknown: Yes Family Medical History: Unable to Obtain Additional Family Medical History / Comment(s): patient is adopted <Frankie Kim - Last Filed: 05/31/24 14:52> General Exam <JulioFrankie - Last Filed: 05/31/24 14:52> General appearance: alert, in no apparent distress Head exam: Present: atraumatic, normocephalic, normal inspection Eye exam: Present: normal appearance, PERRL, EOMI. Absent: scleral icterus, conjunctival injection, periorbital swelling ENT exam: Present: normal exam, mucous membranes moist Neck exam: Present: normal inspection. Absent: tenderness, meningismus, lymphadenopathy Respiratory exam: Present: rales, decreased breath sounds. Absent: respiratory distress, rhonchi, stridor Cardiovascular Exam: Present: regular rate, normal rhythm, normal heart sounds. Absent: systolic murmur, diastolic murmur, rubs, gallop, clicks GI/Abdominal exam: Present: soft, normal bowel sounds. Absent: distended, tenderness, guarding, rebound, rigid Extremities exam: Present: full ROM, normal capillary refill, pedal edema. Absent: tenderness, joint swelling, calf tenderness Back exam: Present: normal inspection Neurological exam: Present: alert, oriented X3, CN II-XII intact Psychiatric exam: Present: normal affect, normal mood Skin exam: Present: warm, dry, intact, normal color. Absent: rash <Khloe Rodriguez - Last Filed: 06/01/24 13:18> - General Exam Comments Initial Comments: Visual Physical Exam Vital signs reviewed General: Well-appearing, nontoxic, no acute distress. Patient seated in wheelchair with high flow O2 via nasal cannula Head: Normocephalic, atraumatic Eyes: PERRLA, EOMI ENT: Airway patent Chest: Nonlabored breathing Skin: No visual rash, normal skin tone Neuro: Alert and oriented 3 Musculoskeletal: No gross abnormalities (Julio,Frankie) Course Vital Signs 05/31/24 05/31/24 05/31/24 14:48 15:59 16:17 Temperature 98.4 F Pulse Rate 86 Respiratory 18 Rate Blood Pressure 100/56 O2 Sat by Pulse 85 L Oximetry Fraction of 90 90 Inspired Oxygen (FIO2) 05/31/24 05/31/24 05/31/24 17:27 19:58 20:19 Temperature Pulse Rate 77 78 79 Respiratory 17 18 Rate Blood Pressure 116/74 125/66 O2 Sat by Pulse 94 L 97 Oximetry Fraction of 90 Inspired Oxygen (FIO2) 05/31/24 05/31/24 05/31/24 20:29 21:58 23:29 Temperature Pulse Rate 80 73 80 Respiratory 16 Rate Blood Pressure 107/62 O2 Sat by Pulse 96 96 Oximetry Fraction of 90 Inspired Oxygen (FIO2) 06/01/24 06/01/24 06/01/24 00:59 01:58 04:12 Temperature Pulse Rate 78 74 Respiratory 16 16 Rate Blood Pressure 118/70 118/70 O2 Sat by Pulse 91 L 99 96 Oximetry Fraction of 90 Inspired Oxygen (FIO2) 06/01/24 06/01/24 06/01/24 05:00 06:33 06:51 Temperature 98.2 F 98.5 F 98.8 F Pulse Rate 81 85 82 Respiratory 14 14 16 Rate Blood Pressure 139/66 126/62 126/69 O2 Sat by Pulse 95 91 L 93 L Oximetry Fraction of Inspired Oxygen (FIO2) 06/01/24 06/01/24 06/01/24 07:11 07:48 08:08 Temperature 99.0 F Pulse Rate 86 85 84 Respiratory 17 Rate Blood Pressure 127/60 O2 Sat by Pulse 91 L 93 L Oximetry Fraction of 90 Inspired Oxygen (FIO2) 06/01/24 06/01/24 06/01/24 08:36 09:56 10:49 Temperature 99.3 F Pulse Rate 82 80 82 Respiratory 18 18 19 Rate Blood Pressure 129/70 124/66 O2 Sat by Pulse 95 90 L 90 L Oximetry Fraction of Inspired Oxygen (FIO2) 06/01/24 06/01/24 06/01/24 11:20 11:33 12:27 Temperature Pulse Rate 84 81 Respiratory Rate Blood Pressure O2 Sat by Pulse 98 98 Oximetry Fraction of 90 85 Inspired Oxygen (FIO2) Medical Decision Making <Frankie Kim - Last Filed: 05/31/24 14:52> - Lab Data Result diagrams: 06/01/24 05:05 05/31/24 16:39 <Khloe Rodriguez - Last Filed: 06/01/24 13:18> - Medical Decision Making I completed the quick note portion of this chart signed THOMAS Lofton (Frankie Kim) Was pt. sent in by a medical professional or institution ([facility] Cervantes, RESIDENTIAL DESIGNER, urgent care, hospital, or long term...) When possible be specific @ -No Did you speak to anyone other than the patient for history (EMS, parent, family, police, friend...)? What history was obtained from this source @ -Spoke with the who does provide history Did you review nursing and triage notes (agree or disagree)? Why? @ -I reviewed and agree with nursing and triage notes Were old charts reviewed (outside hosp., previous admission, EMS record, old EKG, old radiological studies, urgent care reports/EKG's, long term records)? Report findings @ -I reviewed the results of the laboratory studies which were completed 2 days ago. Also reviewed paperwork from patient's care team at [facility] Differential Diagnosis (chest pain, altered mental status, abdominal pain women, abdominal pain men, vaginal bleeding, weakness, fever, dyspnea, syncope, headache, dizziness, GI bleed, back pain, seizure, CVA, palpatations, mental health, musculoskeletal)? @ -Differential Dyspnea: Coronary syndrome, arrhythmia, tamponade, asthma, COPD, pulmonary embolism, pneumonia, pneumothorax, pulmonary effusion, anaphylaxis, diabetic ketoacidosis, flailed chest, pulmonary contusion, diaphragmatic rupture, anemia, neur omuscular, this is not meant to be an all-inclusive list. EKG interpreted by me (3pts min.). @ -Yes and demonstrates sinus rhythm with rate of 86. [place] interval 158. QRS 151. QTc 429. Right bundle branch block. No acute ST segment elevations X-rays interpreted by me (1pt min.). @ -Yes and demonstrates multiple diffuse bilateral opacities consistent with patient's metastatic disease. There is additional pleural effusions CT interpreted by me (1pt min.). @ -None done U/S interpreted by me (1pt. min.). @ -None done What testing was considered but not performed or refused? (CT, X-rays, U/S, labs)? Why? @ -CT of the chest was considered however patient does have poor kidney function at this time he cannot tolerate a CT scan with contrast What meds were considered but not given or refused? Why? @ -None Did you discuss the management of the patient with other professionals (brian downs i.e. , PA, RESIDENTIAL DESIGNER, lab, RT, psych nurse, social work associate, heavy forging machine operator, teacher, correctional probation officer, adult protective caseworker)? Give summary @ -Spoke with Archana from [facility] for admission Was smoking cessation discussed for >3mins.? @ -No Was critical care preformed (if so, how long)? @ -Yes, 35 minutes for management of respiratory failure Were there social determinants of health that impacted care today? How? (Ho melessness, low income, unemployed, alcoholism, drug addiction, transportation, low edu. Level, literacy, decrease access to med. care, chcf, rehab)? @ -No Was there de-escalation of care discussed even if they declined (Discuss DNR or withdrawal of care, Hospice)? DNR status @ -Patient does not feel that she wants to be on ventilator however would like more time to think about this decision What co-morbidities impacted this encounter? (DM, HTN, Smoking, COPD, CAD, Cancer, CVA, ARF, Chemo, Hep., AIDS, mental health diagnosis, sleep apnea, morbid obesity)? @ -Angiosarcoma, chronic respiratory insufficiency on home O2 Was patient admitted / discharged? Hospital course, mention meds given and route, prescriptions, significant lab abnormalities, going to OR and other pertinent info. @ -Upon arrival patient is placed into room 23. She is placed on continuous pulse ox and cardiac monitoring. Patient does have oxygen saturations as low as 63% on her 10 L. She is placed on Airvo. She is immediately placed on 60 L however we are able to titrate this down. IV was established and laboratory studies are conducted. Laboratory studies do demonstrate an elevated white blood cell count. It appears that this has been chronic for the patient. She does admit to Neulasta injections. She denies fevers or cough. She does admit to weight gain. BNP is elevated. She does have some pleural effusions. I do feel that the patient should receive IV diuresis to see if this alleviates some of her shortness of breath as clinically the patient has Rales on exam. I will continue patient's breathing treatments. Patient will be admitted with oncology and pulmonology consultations. Her hemoglobin is 7. She may require transfusion however I will wait until patient is diuresed before ordering any blood due to her respiratory failure possibly due to volume overload. Patient understood this. we are able to titrate down her oxygen to 40 L. Patient appears comfortable at this time. Spoke with Archana from [facility] for the admission Undiagnosed new problem with uncertain prognosis? @ -No Drug Therapy requiring intensive monitoring for toxicity (Heparin, Nitro, Insulin, Cardizem)? @ -No Were any procedures done? @ -No Diagnosis/symptom? @ -Acute hypoxic respiratory failure, chronic respiratory insufficiency, possible CHF exacerbation, acute on chronic leukocytosis, history of ang iosarcoma on chemotherapy with Neulasta, acute on chronic anemia secondary to chemo Acute, or Chronic, or Acute on Chronic? @ -Acute Uncomplicated (without systemic symptoms) or Complicated (systemic symptoms)? @ -Complicated Side effects of treatment? @ -No Exacerbation, Progression, or Severe Exacerbation? @ -No Poses a threat to life or bodily function? How? (Chest pain, [place], NE, pneumonia, PE, COPD, DKA, ARF, appy, cholecystitis, CVA, Diverticulitis, Homicidal, Suicidal, threat to staff... and all critical care pts) @ -Yes as patient does have stage IV cancer (Khloe Rodriguez) - Lab Data Lab Results 05/31/24 05/31/24 05/31/24 Range/Units 15:20 15:20 15:20 WBC 22.0 H (3.8-10.6) k/uL RBC 2.26 L (3.80-5.40) m/uL Hgb 7.0 L (11.4-16.0) gm/dL Hct 20.9 L (34.0-46.0) % MCV 92.5 (80.0-100.0) fL MCH 31.1 (25.0-35.0) pg MCHC 33.6 (31.0-37.0) g/dL RDW 18.1 H (11.5-15.5) % Plt Count 84 L (150-450) k/uL MPV 10.6 Neutrophils % 95 % Lymphocytes % 2 % Monocytes % 2 % Eosinophils % 0 % Basophils % 0 % Neutrophils # 20.8 H (1.3-7.7) k/uL Lymphocytes # 0.5 L (1.0-4.8) k/uL Monocytes # 0.5 (0-1.0) k/uL Eosinophils # 0.0 (0-0.7) k/uL Basophils # 0.1 (0-0.2) k/uL Manual Slide Review Performed Hypersegmented Neuts Present Anisocytosis Slight PT 12.3 (10.0-12.5) sec INR 1.1 (<1.2) APTT 30.1 H (22.0-30.0) sec D-Dimer 5.56 H (<0.60) mg/L FEU Sodium (137-145) mmol/L Potassium (3.5-5.1) mmol/L Chloride (98-107) mmol/L Carbon Dioxide (22-30) mmol/L Anion Gap mmol/L BUN (7-17) mg/dL Creatinine (0.52-1.04) mg/dL Est GFR (CKD-EPI)AfAm (>60 ml/min/1.73 sqM) Est GFR (CKD-EPI)NonAf (>60 ml/min/1.73 sqM) Glucose (74-99) mg/dL Plasma Lactic Acid Andrea 1.3 (0.7-2.0) mmol/L Calcium (8.4-10.2) mg/dL Total Bilirubin (0.2-1.3) mg/dL AST (14-36) U/L ALT (4-34) U/L Alkaline Phosphatase (38-126) U/L Troponin I (0.000-0.034) ng/mL NT-Pro-B Natriuret Pep pg/mL Total Protein (6.3-8.2) g/dL Albumin (3.5-5.0) g/dL Influenza Type A (PCR) (Not Detectd) Influenza Type B (PCR) (Not Detectd) RSV (PCR) (Not Detectd) SARS-CoV-2 (PCR) (Not Detectd) 05/31/24 05/31/24 05/31/24 Range/Units 15:20 15:20 16:39 WBC (3.8-10.6) k/uL RBC (3.80-5.40) m/uL Hgb (11.4-16.0) gm/dL Hct (34.0-46.0) % MCV (80.0-100.0) fL MCH (25.0-35.0) pg MCHC (31.0-37.0) g/dL RDW (11.5-15.5) % Plt Count (150-450) k/uL MPV Neutrophils % % Lymphocytes % % Monocytes % % Eosinophils % % Basophils % % Neutrophils # (1.3-7.7) k/uL Lymphocytes # (1.0-4.8) k/uL Monocytes # (0-1.0) k/uL Eosinophils # (0-0.7) k/uL Basophils # (0-0.2) k/uL Manual Slide Review Hypersegmented Neuts Anisocytosis PT (10.0-12.5) sec INR (<1.2) APTT (22.0-30.0) sec D-Dimer (<0.60) mg/L FEU Sodium 128 L (137-145) mmol/L Potassium 4.6 (3.5-5.1) mmol/L Chloride 95 L (98-107) mmol/L Carbon Dioxide 26 (22-30) mmol/L Anion Gap 7 mmol/L BUN 58 H (7-17) mg/dL Creatinine 2.44 H (0.52-1.04) mg/dL Est GFR (CKD-EPI)AfAm 21 (>60 ml/min/1.73 sqM) Est GFR (CKD-EPI)NonAf 19 (>60 ml/min/1.73 sqM) Glucose 158 H (74-99) mg/dL Plasma Lactic Acid Andrea (0.7-2.0) mmol/L Calcium 7.5 L (8.4-10.2) mg/dL Total Bilirubin 0.9 (0.2-1.3) mg/dL AST 38 H (14-36) U/L ALT 14 (4-34) U/L Alkaline Phosphatase 73 (38-126) U/L Troponin I 0.035 H* (0.000-0.034) ng/mL NT-Pro-B Natriuret Pep 4480 pg/mL Total Protein 4.7 L (6.3-8.2) g/dL Albumin 2.6 L (3.5-5.0) g/dL Influenza Type A (PCR) Not Detected (Not Detectd) Influenza Type B (PCR) Not Detected (Not Detectd) RSV (PCR) Not Detected (Not Detectd) SARS-CoV-2 (PCR) Not Detected (Not Detectd) Disposition <Frankie Kim - Last Filed: 05/31/24 14:52> Is patient prescribed a controlled substance at d/c from ED?: No Time of Disposition: 19:13 Decision to Admit Reason: Admit from EC Decision Date: 05/31/24 Decision Time: 19:13 <Khloe Rodriguez - Last Filed: 06/01/24 13:18> Clinical Impression: CHF exacerbation, Hypoxia, Leukocytosis, Anemia, Angiosarcoma Disposition: ADMITTED IP TO THIS HOSP Condition: Serious
[2024-05-31 16:47] LABS: Anisocytosis Slight; Basophils # (A) 0.1 k/uL (0-0.2); Basophils % (A) 0 %; Eosinophils % (A) 0 %; HCT 20.9 % (34.0-46.0); Lymphocytes # (A) 0.5 k/uL (1.0-4.8); Lymphocytes % (A) 2 %; MCH 31.1 pg (25.0-35.0); MCHC 33.6 g/dL (31.0-37.0); MCV 92.5 fL (80.0-100.0); Mean Platelet Volume 10.6; Monocytes # (A) 0.5 k/uL (0-1.0); Monocytes % (A) 2 %; Neutrophils # (A) 20.8 k/uL (1.3-7.7); Neutrophils % (A) 95 %; RBC 2.26 m/uL (3.80-5.40); RDW 18.1 % (11.5-15.5)
--- NOTE | 2024-05-31 16:48 | XR ---
EXAMINATION TYPE: XR chest 1V portable DATE OF EXAM: 05/31/2024 4:39 PM COMPARISON: Previous chest radiograph 2 1023. CLINICAL INDICATION: Female, 78 years old with history of Dyspnea; [facility] TECHNIQUE: XR chest 1V portable Frontal view of the chest. FINDINGS: Cardiomegaly and patchy bilateral interstitial and airspace opacities. Small bilateral pleural effusions. Right chest wall port catheter distal catheter tip terminating at the cavoatrial junction. No pneumot horax. No acute osseous abnormality. IMPRESSION: Cardiomegaly, small bilateral pleural effusions and patchy opacities in the bilateral lungs suggestin g pulmonary edema. Superimposed infectious etiology would be possible in the proper clinical setting. [facility], , 05/31/2024 4:46 PM
[2024-05-31 17:00] LABS: ALT 14 U/L (4-34); AST 38 U/L (14-36); African American GFR (CKD) 21 (>60 ml/min/1.73 sqM); Albumin 2.6 g/dL (3.5-5.0); Alkaline Phosphatase 73 U/L (38-126); Anion Gap 7 mmol/L; Blood Urea Nitrogen 58 mg/dL (7-17); Calcium 7.5 mg/dL (8.4-10.2); Carbon Dioxide 26 mmol/L (22-30); Chloride 95 mmol/L (98-107); Glucose 158 mg/dL (74-99); Non-African American GFR(CKD) 19 (>60 ml/min/1.73 sqM); Potassium 4.6 mmol/L (3.5-5.1); Sodium 128 mmol/L (137-145); Total Bilirubin 0.9 mg/dL (0.2-1.3); Total Protein 4.7 g/dL (6.3-8.2)
[2024-05-31 17:07] LABS: NT-Pro-B-Type Natriuretic Pept 4480 pg/mL
[2024-05-31 17:08] LABS: INR 1.1 (<1.2); Partial Thromboplastin Time 30.1 sec (22.0-30.0); Prothrombin Time 12.3 sec (10.0-12.5)
[2024-05-31 17:46] LABS: Platelet Count 84 k/uL (150-450)
[2024-05-31 17:47] LABS: Hypersegmented Neutrophils Present
[2024-05-31] MEDS ORDERED: NALOXONE 0.4 MG/ML 1 ML VIAL IV PRN (19:13)
[2024-05-31] MEDS ORDERED: PROCHLORPERAZINE 10 MG TAB PO PRN (19:24)
[2024-05-31] MEDS: FUROSEMIDE 10 MG/ML 10 ML VIAL IV STA (20:18)
[2024-05-31] MEDS: IPRATROPIUM-ALBUTEROL 3 ML NEB INHALATION SCH (20:19)
[2024-05-31] MEDS: ATORVASTATIN 20 MG TAB PO SCH (20:23)
[2024-05-31] MEDS: GABAPENTIN 300 MG CAP PO SCH (20:23)
[2024-05-31] MEDS: amLODIPine 10 MG TAB PO SCH (20:24)
[2024-05-31] MEDS: MONTELUKAST 10 MG TAB PO SCH (20:24)
[2024-05-31] MEDS: carvediloL 3.125 MG TAB PO SCH (20:52)
[2024-06-01 05:13] LABS: Anisocytosis Slight; MCH 30.7 pg (25.0-35.0); MCHC 34.1 g/dL (31.0-37.0); Mean Platelet Volume 9.8; RBC 2.02 m/uL (3.80-5.40); RDW 18.1 % (11.5-15.5); WBC 23.5 k/uL (3.8-10.6)
[2024-06-01 05:14] LABS: HCT 18.2 % (34.0-46.0); HGB 6.2 gm/dL (11.4-16.0); Platelet Count 97 k/uL (150-450)
[2024-06-01] MEDS ORDERED: IPRATROPIUM-ALBUTEROL 3 ML NEB INHALATION PRN (08:01)
[2024-06-01] MEDS: IPRATROPIUM-ALBUTEROL 3 ML NEB INHALATION SCH (08:09)
[2024-06-01] MEDS: PANTOPRAZOLE 40 MG TABLET PO SCH (08:28)
[2024-06-01] MEDS: LACTOBACILLUS ACIDOPHILUS/PECT 1 EACH CAPSULE PO SCH (08:28)
[2024-06-01] MEDS: FUROSEMIDE 10 MG/ML 4 ML VIAL IV SCH (08:28)
[2024-06-01] MEDS: LORATADINE 10 MG TAB PO SCH (08:29)
[2024-06-01] MEDS: FLUTICASONE NASAL 50MCG/SPRAY 16GM BTL EA NOSTRIL SCH (09:55)
--- NOTE | 2024-06-01 10:01 | P.HPIM ---
History of Present Illness Patient is a pleasant 78 years old female with past medical history of multiple medical problems including chronic kidney disease stage IV and history of angiosarcoma of the left breast, she follows up with Dr. Alexandra at [facility], she states she has evidence of metastasis to the liver and lung and she got chemotherapy 2 days prior to coming to this facility. Patient presents because of worsening dyspnea but no chest pain and some dry cough She does not have specific GI/ symptoms. No headache weakness or numbness. She denies smoking alcohol or illicit drugs. She is currently requiring 4 L of oxygen via airvo,. She is afebrile She has leukocytosis of 22,000, hemoglobin 7 came back to 6.2 and she is getting 1 unit of blood Platelet count 84 Sodium 128 Creatinine elevated 2.4 with baseline 2.1-2.4 D-dimer was elevated 5.5 Troponin 0.35 proBNP is high 4480 EKG showing sinus rhythm at [address]-T changes Chest x-ray showing bilateral patchy opacities suspicious for pulmonary edema Currently she is on IV Lasix twice daily at 40 mg. Review of Systems Review of systems CONSTITUTIONAL: No fever, no malaise, no fatigue. HEENT: No recent visual problems or hearing problems. Denied any sore throat. CARDIOVASCULAR: No orthopnea, PND, no palpitations, no syncope. PULMONARY: No sh chest wall tenderness, no hemoptysis. GASTROINTESTINAL: No diarrhea, no nausea, no vomiting, no abdominal pain. Normoactive bowel sounds. NEUROLOGICAL: No headaches, no weakness, no numbness. HEMATOLOGICAL: Denies any bleeding or petechiae. GENITOURINARY: Denies any burning micturition, frequency, or urgency. MUSCULOSKELETAL/RHEUMATOLOGICAL: Denies any joint pain, swelling, or any muscle pain. ENDOCRINE: Denies any polyuria or polydipsia. 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, right knee oa, positive factor 5 le iden History of Any Multi-Drug Resistant Organisms: None Reported Past Surgical History: Orthopedic Surgery Additional Past Surgical History / Comment(s): mastectomy, left total knee replacement, right chest wall mediport/power port Past Anesthesia/Blood Transfusion Reactions: No Reported Reaction Past Psychological History: No Psychological Hx Reported Smoking Status: Never smoker Past Alcohol Use History: Occasional Past Drug Use History: None Reported - Past Family History Father History Unknown: Yes Family Medical History: Unable to Obtain Additional Family Medical History / Comment(s): patient is adopted Medications and Allergies Home Medications Medication Instructions Recorded Confirmed Type Albuterol Inhaler [Ventolin Hfa 2 puff INHALATION RT-Q4H PRN 08/10/22 05/31/24 History Inhaler] Atorvastatin [Lipitor] 20 mg PO HS 08/10/22 05/31/24 History Fexofenadine HCl [Amelia Allergy] 180 mg PO DAILY 08/10/22 05/31/24 History Fluticasone Nasal Brant [Flonase 2 spr EA NOSTRIL DAILY 08/10/22 05/31/24 History Nasal Brant] Gabapentin 600 mg PO BID@1600,2100 08/10/22 05/31/24 History Lactobacillus Rhamnosus GG 1 cap PO DAILY 08/10/22 05/31/24 History [Culturelle] Lidocaine-Prilocaine Cream [Emla 1 applic TOPICAL DAILY PRN 08/10/22 05/31/24 History Cream 2.5%/2.5%] Montelukast [Singulair] 10 mg PO HS 08/10/22 05/31/24 History Omeprazole [PriLOSEC] 20 mg PO DAILY 08/10/22 05/31/24 History Prochlorperazine [Compazine] 10 mg PO Q6H PRN 08/10/22 05/31/24 History amLODIPine [Norvasc] 10 mg PO HS 08/10/22 05/31/24 History Sennosides [Senokot] 17.2 mg PO DAILY PRN 05/31/24 05/31/24 History Sodium Zirconium Cyclosilicate 10 gm PO DAILY PRN 05/31/24 05/31/24 History [Lokelma] Torsemide [Demadex] 50 mg PO DAILY PRN 05/31/24 05/31/24 History Torsemide [Demadex] 50 mg PO GUZMAN 05/31/24 05/31/24 History Ubidecarenone [Coenzyme Q10] 100 mg PO BID 05/31/24 05/31/24 History carvediloL [Coreg] 3.125 mg PO BID 05/31/24 05/31/24 History fentaNYL 12MCG/HR PATCH [Duragesic 1 patch TRANSDERM Q72H 05/31/24 05/31/24 History 12MCG/HR] hydrALAZINE HCL [Apresoline] 25 mg PO BID 05/31/24 05/31/24 History hydrALAZINE HCL [Apresoline] 25 mg PO DAILY PRN 05/31/24 05/31/24 History oxyCODONE HCL [OxyIR] 5 mg PO Q6H PRN 05/31/24 05/31/24 History polyethylene glycoL 3350 [Miralax] 17 gm PO DAILY PRN 05/31/24 05/31/24 History Allergies Allergy/AdvReac Type Severity Reaction Status Date / Time tomato Allergy Rash/Hives Verified 05/31/24 19:18 all over from raw tomatoes Physical Exam Vitals: Vital Signs Temp Pulse Resp BP Pulse Ox FiO2 06/01/24 08:36 99.3 F 82 18 129/70 95 06/01/24 08:08 84 06/01/24 07:48 85 93 L 90 06/01/24 07:11 99.0 F 86 17 127/60 91 L 06/01/24 06:51 98.8 F 82 16 126/69 93 L 06/01/24 06:33 98.5 F 85 14 126/62 91 L 06/01/24 05:00 98.2 F 81 14 139/66 95 06/01/24 04:12 96 90 06/01/24 01:58 74 16 118/70 99 06/01/24 00:59 78 16 118/70 91 L 05/31/24 23:29 80 96 90 05/31/24 21:58 73 16 107/62 96 05/31/24 20:29 80 05/31/24 20:19 79 90 05/31/24 19:58 78 18 125/66 97 05/31/24 17:27 77 17 116/74 94 L 05/31/24 16:17 90 05/31/24 15:59 90 05/31/24 14:48 98.4 F 86 18 100/56 85 L Intake and Output 05/31/24 06/01/24 06/01/24 22:59 06:59 14:59 Intake Total 0 Balance 0 Intake: Blood Product 0 Rc Irr As1 Unit 0 [id number] GENERAL: The patient is alert and oriented x3, not in any acute distress. Well developed, well nourished. HEENT: Pupils are round and equally reacting to light. EOMI. No scleral icterus. No conjunctival pallor. Normocephalic, atraumatic. No pharyngeal erythema. No thyromegaly. CARDIOVASCULAR: S1 and S2 present. No murmurs, rubs, or gallops. -PULMONARY: Chest is clear to auscultation, no wheezing , bilateral basal crackles. ABDOMEN: Soft, nontender, nondistended, normoactive bowel sounds. No palpable organomegaly. MUSCULOSKELETAL: No joint swelling or deformity. EXTREMITIES: No cyanosis, clubbing, or pedal edema. NEUROLOGICAL: Gross neurological examination did not reveal any focal deficits. SKIN: No rashes. no petechiae. Results CBC & Chem 7: 06/01/24 05:05 05/31/24 16:39 Labs: Abnormal Lab Results - Last 24 Hours (Table) 05/31/24 05/31/24 05/31/24 Range/Units 15:20 15:20 15:20 WBC 22.0 H (3.8-10.6) k/uL RBC 2.26 L (3.80-5.40) m/uL Hgb 7.0 L (11.4-16.0) gm/dL Hct 20.9 L (34.0-46.0) % RDW 18.1 H (11.5-15.5) % Plt Count 84 L (150-450) k/uL Neutrophils # 20.8 H (1.3-7.7) k/uL Lymphocytes # 0.5 L (1.0-4.8) k/uL APTT 30.1 H (22.0-30.0) sec D-Dimer 5.56 H (<0.60) mg/L FEU Sodium (137-145) mmol/L Chloride (98-107) mmol/L BUN (7-17) mg/dL Creatinine (0.52-1.04) mg/dL Glucose (74-99) mg/dL Calcium (8.4-10.2) mg/dL AST (14-36) U/L Troponin I 0.035 H* (0.000-0.034) ng/mL Total Protein (6.3-8.2) g/dL Albumin (3.5-5.0) g/dL Crossmatch 05/31/24 05/31/24 06/01/24 Range/Units 16:39 19:28 05:05 WBC 23.5 H (3.8-10.6) k/uL RBC 2.02 L (3.80-5.40) m/uL Hgb 6.2 L* (11.4-16.0) gm/dL Hct 18.2 L* (34.0-46.0) % RDW 18.1 H (11.5-15.5) % Plt Count 97 L (150-450) k/uL Neutrophils # (1.3-7.7) k/uL Lymphocytes # (1.0-4.8) k/uL APTT (22.0-30.0) sec D-Dimer (<0.60) mg/L FEU Sodium 128 L (137-145) mmol/L Chloride 95 L (98-107) mmol/L BUN 58 H (7-17) mg/dL Creatinine 2.44 H (0.52-1.04) mg/dL Glucose 158 H (74-99) mg/dL Calcium 7.5 L (8.4-10.2) mg/dL AST 38 H (14-36) U/L Troponin I (0.000-0.034) ng/mL Total Protein 4.7 L (6.3-8.2) g/dL Albumin 2.6 L (3.5-5.0) g/dL Crossmatch See Detail Assessment and Plan Assessment: Acute pulmonary edema, acute CHF with unknown ejection fraction, cannot rule out pneumonia 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 Her oncologist is Dr. Anguiano Hypervolemic hyponatremia Acute kidney injury on CKD stage IV Elevated troponin secondary to kidney disease and CHF Acute hypoxic respiratory failure Plan: Continue with IV Lasix Monitor labs and creatinine Continue with ceftriaxone Patient is getting 1 unit of blood transfusion and monitor hemoglobin Pulmonary and cardiology consult Follow-upCalcitonin Patient follow-up with oncology team at [facility], she got chemotherapy 2 to 3 days earlier I discussed the case with pulmonary team who recommended transfer the patient back [facility], I talked to the patient and she is agreeable. Discussed with the staff to start the process Labs and medication were reviewed.. Continue same treatment. Continue with symptomatic treatment. Resume home medication. Monitor labs and vitals. DVT and GI prophylaxis. Further recommendations as per clinical course of the patient DVT prophylaxis: Hold AC for severe anemia, continue with mechanical GI Prophylaxis: Ppi Prognosis is guarded
[2024-06-01] MEDS: HYDROcodone/APAP 5-325MG 1 EACH TAB PO PRN (10:46)
--- NOTE | 2024-06-01 11:15 | P.CNPUL ---
History of Present Illness Consult date: 06/01/24 Requesting physician: Daysi Doss Reason for consult: dyspnea, cough, hypoxemia, pneumonia, abnormal CXR/CT Chief complaint: Shortness of breath, hypoxemic respiratory failure. History of present illness: Pulmonary consult dated June 01, 2024. 78-year-old female who is seen in the emergency department, room 23. The patient was seen there initially on May 31. She came into the hospital, complaining of shortness of breath. The patient has a history of angiosarcoma, being followed at the [facility], receiving chemotherapy there. The patient had recent chemotherapy, and apparently afterward developed significant weakness, and shortness of breath. In addition, the patient has been requiring blood transfusions, weekly. The patient follows with Dr. Galdamez in this area. The patient states that she was very short of breath, and could not even stand up. For that reason, she was evaluated, in the emergency department, and admitted. While we saw her, she was on Airvo, at 40 L/min, with an FiO2 of 90%. She had been receiving a unit of packed red blood cells. She is not receiving any IV fluids. She was given singular 10 mg, Symbicort 160/4.5, 2 puffs twice a day, and DuoNebs, 4 times daily and as needed. The patient was given Rocephin empirically, because of concerns of infection. She is on home O2, at 10 L/min. Laboratory data includes a white count 23.5, hemoglobin 6.2, hematocrit 18.2, and a platelet count of 97,000. D-dimer was 5.56. Sodium 128, potassium 4.6, chloride 95, CO2 26, BUN 58, creatinine 2.44. Glucose is 158. Calcium 7.5. Troponin 0.035. N-terminal proBNP 4480. Albumin 2.6. Viral studies were negative. Chest x-ray shows cardiomegaly, small bilateral pleural effusions, and patchy infiltrates bilaterally, suggesting either infection, or CHF. Review of Systems REVIEW OF SYSTEMS: CONSTITUTIONAL: Weakness NEUROLOGIC: [ Negative.] HEENT: [ Negative.] CARDIAC: [Negative.] PULMONARY: Shortness of breath, cough. GI: [Negative.] : [Negative.] RHEUMATOLOGIC: [ Negative.] IMMUNOLOGIC: [ Negative.] ENDOCRINE: [Negative. ] DERMATOLOGIC: [Negative.] 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, right knee oa, positive factor 5 leiden History of Any Multi-Drug Resistant Organisms: None Reported Past Surgical History: Orthopedic Surgery Additional Past Surgical History / Comment(s): mastectomy, left total knee replacement, right chest wall mediport/power port Past Anesthesia/Blood Transfusion Reactions: No Reported Reaction Past Psychological History: No Psychological Hx Reported Smoking Status: Never smoker Past Alcohol Use History: Occasional Past Drug Use History: None Reported - Past Family History Father History Unknown: Yes Family Medical History: Unable to Obtain Additional Family Medical History / Comment(s): patient is adopted Medications and Allergies Home Medications Medication Instructions Recorded Confirmed Type Albuterol Inhaler [Ventolin Hfa 2 puff INHALATION RT-Q4H PRN 08/10/22 05/31/24 History Inhaler] Atorvastatin [Lipitor] 20 mg PO HS 08/10/22 05/31/24 History Fexofenadine HCl [Amelia Allergy] 180 mg PO DAILY 08/10/22 05/31/24 History Fluticasone Nasal [place]by [Flonase 2 spr EA NOSTRIL DAILY 08/10/22 05/31/24 History Nasal [place]] Gabapentin 600 mg PO BID@1600,2100 08/10/22 05/31/24 History Lactobacillus Rhamnosus GG 1 cap PO DAILY 08/10/22 05/31/24 History [Culturelle] Lidocaine-Prilocaine Cream [Emla 1 applic TOPICAL DAILY PRN 08/10/22 05/31/24 History Cream 2.5%/2.5%] Montelukast [Singulair] 10 mg PO HS 08/10/22 05/31/24 History Omeprazole [PriLOSEC] 20 mg PO DAILY 08/10/22 05/31/24 History Prochlorperazine [Compazine] 10 mg PO Q6H PRN 08/10/22 05/31/24 History amLODIPine [Norvasc] 10 mg PO HS 08/10/22 05/31/24 History Sennosides [Senokot] 17.2 mg PO DAILY PRN 05/31/24 05/31/24 History Sodium Zirconium Cyclosilicate 10 gm PO DAILY PRN 05/31/24 05/31/24 History [Lokelma] Torsemide [Demadex] 50 mg PO DAILY PRN 05/31/24 05/31/24 History Torsemide [Demadex] 50 mg PO GUZMAN 05/31/24 05/31/24 History Ubidecarenone [Coenzyme Q10] 100 mg PO BID 05/31/24 05/31/24 History carvediloL [Coreg] 3.125 mg PO BID 05/31/24 05/31/24 History fentaNYL 12MCG/HR PATCH [Duragesic 1 patch TRANSDERM Q72H 05/31/24 05/31/24 History 12MCG/HR] hydrALAZINE HCL [Apresoline] 25 mg PO BID 05/31/24 05/31/24 History hydrALAZINE HCL [Apresoline] 25 mg PO DAILY PRN 05/31/24 05/31/24 History oxyCODONE HCL [OxyIR] 5 mg PO Q6H PRN 05/31/24 05/31/24 History polyethylene glycoL 3350 [Miralax] 17 gm PO DAILY PRN 05/31/24 05/31/24 History Allergies Allergy/AdvReac Type Severity Reaction Status Date / Time tomato Allergy Rash/Hives Verified 05/31/24 19:18 all over from raw tomatoes Physical Exam Osteopathic Statement: *. No significant issues noted on an osteopathic structural exam other than those noted in the History and Physical/Consult. Vitals: Vital Signs Temp Pulse Resp BP Pulse Ox FiO2 06/01/24 10:49 82 19 90 L 06/01/24 09:56 80 18 124/66 90 L 06/01/24 08:36 99.3 F 82 18 129/70 95 06/01/24 08:08 84 06/01/24 07:48 85 93 L 90 06/01/24 07:11 99.0 F 86 17 127/60 91 L 06/01/24 06:51 98.8 F 82 16 126/69 93 L 06/01/24 06:33 98.5 F 85 14 126/62 91 L 06/01/24 05:00 98.2 F 81 14 139/66 95 06/01/24 04:12 96 90 06/01/24 01:58 74 16 118/70 99 06/01/24 00:59 78 16 118/70 91 L 05/31/24 23:29 80 96 90 05/31/24 21:58 73 16 107/62 96 05/31/24 20:29 80 05/31/24 20:19 79 90 05/31/24 19:58 78 18 125/66 97 05/31/24 17:27 77 17 116/74 94 L 05/31/24 16:17 90 05/31/24 15:59 90 05/31/24 14:48 98.4 F 86 18 100/56 85 L Intake and Output 05/31/24 06/01/24 06/01/24 22:59 06:59 14:59 Intake Total 0 Balance 0 Intake: Blood Product 0 Rc Irr As1 Unit 0 [id number] No acute distress, oriented 3. Currently on Airvo, at 40 L/min with an FiO2 of 90%. HEENT examination is grossly unremarkable. Neck supple. Full range of motion. No adenopathy thyromegaly or neck vein distention. Cardiovascular examination reveals regular rhythm rate. S1-S2 normal. No S3 or S4. No discernible murmur noted. Lungs reveal bilateral coarse rhonchi. Few scattered crackles. No wheezes. Saturations are in the low 90s, on Airvo. Abdomen soft bowel sounds are heard. No masses or tenderness. Extremities are intact. No cyanosis clubbing or edema. Skin is without rash or lesion. Neurologic examination is brief but nonfocal. Results - Laboratory Findings CBC and BMP: 06/01/24 05:05 05/31/24 16:39 PT/INR, D-dimer PT 12.3 sec (10.0-12.5) 05/31/24 15:20 INR 1.1 (<1.2) 05/31/24 15:20 D-Dimer 5.56 mg/L FEU (<0.60) H 05/31/24 15:20 Abnormal lab findings: Abnormal Labs 05/31/24 05/31/24 05/31/24 15:20 15:20 15:20 WBC 22.0 H RBC 2.26 L Hgb 7.0 L Hct 20.9 L RDW 18.1 H Plt Count 84 L Neutrophils # 20.8 H Lymphocytes # 0.5 L APTT 30.1 H D-Dimer 5.56 H Sodium Chloride BUN Creatinine Glucose Calcium AST Troponin I 0.035 H* Total Protein Albumin Crossmatch 05/31/24 05/31/24 06/01/24 16:39 19:28 05:05 WBC 23.5 H RBC 2.02 L Hgb 6.2 L* Hct 18.2 L* RDW 18.1 H Plt Count 97 L Neutrophils # Lymphocytes # APTT D-Dimer Sodium 128 L Chloride 95 L BUN 58 H Creatinine 2.44 H Glucose 158 H Calcium 7.5 L AST 38 H Troponin I Total Protein 4.7 L Albumin 2.6 L Crossmatch See Detail - Diagnostic Findings Chest x-ray: image reviewed Assessment and Plan Assessment: Acute hypoxemic respiratory failure, which might be multifactorial, in part related to fluid overload, and possible underlying pneumonia. History of angiosarcoma, currently undergoing chemotherapy at [facility]. Acute on chronic anemia, requiring frequent blood transfusions. History of hypertension. History of hyperlipidemia. History of congestive heart failure. Stage IV chronic kidney disease. Valvular heart disease. History of breast cancer. History of factor V Leiden factor deficiency. Lifelong non-smoker. History of asthma. Plan: Plan dated June 01, 2024. The patient is seen in the emergency department. She comes in with profound hypoxemic respiratory failure, and significant shortness of breath. In addition, the patient has acute on chronic anemia, and requires frequent blood transfusions. The patient was given singular 10 mg at bedtime, and Symbicort 160/4.5, 2 puffs twice a day. She was also started on updrafts with DuoNeb, 4 times daily and as needed. At home, the patient is on oxygen at 10 L. Rocephin is given to the patient empirically. A procalcitonin level was ordered. Labs, x-rays, medications are reviewed. I mention to the primary service, the patient should be transferred to the [facility], or all of her current doctors are. The only doctor that she sees in this area is Dr. Galdamez. Prognosis is guarded. Time with Patient: Greater than 30
--- NOTE | 2024-06-01 12:31 | CT ---
EXAMINATION TYPE: CT chest wo con DATE OF EXAM: 06/01/2024 12:24 PM COMPARISON: None. CLINICAL INDICATION: Female, 78 years old with history of hypoxia on chemo, assess for pneumonitis, H YPOXIA ON CHEMO, TECHNIQUE: High-resolution noncontrast CT of the chest was performed with the patient in the prone an d supine positions. Lung and mediastinal window settings are submitted. CT DLP: 841.5 mGycm, Automated exposure control for dose reduction was used. FINDINGS: Innumerable pulmonary nodules are seen bilaterally which may be related to metastatic disease versus infectious etiology. Largest nodule left lung base measures 2.4 cm. Largest nodule right lung measure s 2.1 cm right lower lobe. Most nodules are greater than 1 cm in size. There are associated groundgla ss infiltrates seen bilaterally as well. Correlate clinically. Bilateral pleural effusions left grea ter than right small in size. Cardiomegaly. Multiple lymph nodes throughout the mediastinum measuring up to 1.2 cm. IMPRESSION: 1. Innumerable pulmonary nodules are seen bilaterally which may be related to metastatic disease vers us infectious etiology. There are associated groundglass infiltrates seen bilaterally as well. Corre late clinically. 2. Nonspecific mediastinal adenopathy. [facility], , 06/01/2024 12:29 PM
[2024-06-01 13:27] LABS: African American GFR (CKD) 23 (>60 ml/min/1.73 sqM); Anion Gap 9 mmol/L; Blood Urea Nitrogen 65 mg/dL (7-17); Calcium 7.6 mg/dL (8.4-10.2); Carbon Dioxide 23 mmol/L (22-30); Chloride 94 mmol/L (98-107); Glucose 113 mg/dL (74-99); Non-African American GFR(CKD) 20 (>60 ml/min/1.73 sqM); Sodium 126 mmol/L (137-145)
--- NOTE | 2024-06-01 13:31 | P.CONS ---
History of Present Illness - Reason for Consult Consult date: 06/01/24 Metastatic angiosarcoma - Chief Complaint Dyspnea - History of Present Illness Ms. 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 She noted having mild dyspnea over the past few weeks, but became much more prominent after her most recent treatment. She denies any fevers, chills, or sick contacts. On presentation, she had oxygen saturation of 85% on 10 L nasal cannula and was subsequently transition to high flow nasal cannula with a flow rate of 40 L/min and FiO2 of 90%. Currently, she is saturating in the low to mid 90s. Tmax was 99. Initial CBC noted hemoglobin of 7 with repeat CBC today noting hemoglobin of 6.2. WBC on initial presentation was 22 (ANC 20.8) and platelets 84. CMP noted sodium 128, creatinine 2.44 (baseline appears to be 1.9-2.1), pro BNP 4480, troponin 0.035. Viral PCR for influenza A/B, RSV, and COVID-19 were negative. Chest x-ray noted cardiomegaly with small bilateral pleural effusions and patchy opacities in the bilateral lungs suggestive of pulmonary edema. S uperimposed infectious etiology was also noted to be in the differential. She received Lasix 60 mg IV x 1. Currently, Lasix 40 mg IV twice daily as scheduled along with ceftriaxone 1 g IV every 12 hours. 1 unit of irradiated packed red blood cells has been ordered. Review of Systems 14 point review of systems was conducted with pertinent positives and negatives as noted per HPI 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, right knee oa, positive factor 5 leiden History of Any Multi-Drug Resistant Organisms: None Reported Past Surgical History: Orthopedic Surgery Additional Past Surgical History / Comment(s): mastectomy, left total knee replacement, right chest wall mediport/power port Past Anesthesia/Blood Transfusion Reactions: No Reported Reaction Past Psychological History: No Psychological Hx Reported Smoking Status: Never smoker Past Alcohol Use History: Occasional Past Drug Use History: None Reported - Past Family History Father History Unknown: Yes Family Medical History: Unable to Obtain Additional Family Medical History / Comment(s): patient is adopted Medications and Allergies Home Medications Medication Instructions Recorded Confirmed Type Albuterol Inhaler [Ventolin Hfa 2 puff INHALATION RT-Q4H PRN 08/10/22 05/31/24 History Inhaler] Atorvastatin [Lipitor] 20 mg PO HS 08/10/22 05/31/24 History Fexofenadine HCl [Amelia Allergy] 180 mg PO DAILY 08/10/22 05/31/24 History Fluticasone Nasal Roe [Flonase 2 spr EA NOSTRIL DAILY 08/10/22 05/31/24 History Nasal Roe] Gabapentin 600 mg PO BID@1600,2100 08/10/22 05/31/24 History Lactobacillus Rhamnosus GG 1 cap PO DAILY 08/10/22 05/31/24 History [Culturelle] Lidocaine-Prilocaine Cream [Emla 1 applic TOPICAL DAILY PRN 08/10/22 05/31/24 History Cream 2.5%/2.5%] Montelukast [Singulair] 10 mg PO HS 08/10/22 05/31/24 History Omeprazole [PriLOSEC] 20 mg PO DAILY 08/10/22 05/31/24 History Prochlorperazine [Compazine] 10 mg PO Q6H PRN 08/10/22 05/31/24 History amLODIPine [Norvasc] 10 mg PO HS 08/10/22 05/31/24 History Sennosides [Senokot] 17.2 mg PO DAILY PRN 05/31/24 05/31/24 History Sodium Zirconium Cyclosilicate 10 gm PO DAILY PRN 05/31/24 05/31/24 History [Lokelma] Torsemide [Demadex] 50 mg PO DAILY PRN 05/31/24 05/31/24 History Torsemide [Demadex] 50 mg PO GUZMAN 05/31/24 05/31/24 History Ubidecarenone [Coenzyme Q10] 100 mg PO BID 05/31/24 05/31/24 History carvediloL [Coreg] 3.125 mg PO BID 05/31/24 05/31/24 History fentaNYL 12MCG/HR PATCH [Duragesic 1 patch TRANSDERM Q72H 05/31/24 05/31/24 Hist ory 12MCG/HR] hydrALAZINE HCL [Apresoline] 25 mg PO BID 05/31/24 05/31/24 History hydrALAZINE HCL [Apresoline] 25 mg PO DAILY PRN 05/31/24 05/31/24 History oxyCODONE HCL [OxyIR] 5 mg PO Q6H PRN 05/31/24 05/31/24 History polyethylene glycoL 3350 [Miralax] 17 gm PO DAILY PRN 05/31/24 05/31/24 History Allergies Allergy/AdvReac Type Severity Reaction Status Date / Time tomato Allergy Rash/Hives Verified 05/31/24 19:18 all over from raw tomatoes Physical Exam Vitals: Vital Signs Temp Pulse Resp BP Pulse Ox FiO2 06/01/24 08:36 99.3 F 82 18 129/70 95 06/01/24 08:08 84 06/01/24 07:48 85 93 L 90 06/01/24 07:11 99.0 F 86 17 127/60 91 L 06/01/24 06:51 98.8 F 82 16 126/69 93 L 06/01/24 06:33 98.5 F 85 14 126/62 91 L 06/01/24 05:00 98.2 F 81 14 139/66 95 06/01/24 04:12 96 90 06/01/24 01:58 74 16 118/70 99 06/01/24 00:59 78 16 118/70 91 L 05/31/24 23:29 80 96 90 05/31/24 21:58 73 16 107/62 96 05/31/24 20:29 80 05/31/24 20:19 79 90 05/31/24 19:58 78 18 125/66 97 05/31/24 17:27 77 17 116/74 94 L 05/31/24 16:17 90 05/31/24 15:59 90 05/31/24 14:48 98.4 F 86 18 100/56 85 L Intake and Output 05/31/24 06/01/24 06/01/24 22:59 06:59 14:59 Intake Total 0 Balance 0 Intake: Blood Product 0 Rc Irr As1 Unit 0 [id number] - Constitutional Fatigued appearing General appearance: cooperative, no acute distress - EENT Eyes: EOMI - Respiratory Respiratory: bilateral: other (Diffuse bilateral inspiratory crackles appreci ated) - Cardiovascular Rhythm: regular - Gastrointestinal General gastrointestinal: no distended, soft - Integumentary Integumentary: pale - Neurologic Neurologic: CNII-XII intact Results CBC & Chem 7: 06/01/24 05:05 05/31/24 16:39 Labs: Abnormal Lab Results - Last 24 Hours (Table) 05/31/24 05/31/24 05/31/24 Range/Units 15:20 15:20 15:20 WBC 22.0 H (3.8-10.6) k/uL RBC 2.26 L (3.80-5.40) m/uL Hgb 7.0 L (11.4-16.0) gm/dL Hct 20.9 L (34.0-46.0) % RDW 18.1 H (11.5-15.5) % Plt Count 84 L (150-450) k/uL Neutrophils # 20.8 H (1.3-7.7) k/uL Lymphocytes # 0.5 L (1.0-4.8) k/uL APTT 30.1 H (22.0-30.0) sec D-Dimer 5.56 H (<0.60) mg/L FEU Sodium (137-145) mmol/L Chloride (98-107) mmol/L BUN (7-17) mg/dL Creatinine (0.52-1.04) mg/dL Glucose (74-99) mg/dL Calcium (8.4-10.2) mg/dL AST (14-36) U/L Troponin I 0.035 H* (0.000-0.034) ng/mL Total Protein (6.3-8.2) g/dL Albumin (3.5-5.0) g/dL Crossmatch 05/31/24 05/31/24 06/01/24 Range/Units 16:39 19:28 05:05 WBC 23.5 H (3.8-10.6) k/uL RBC 2.02 L (3.80-5.40) m/uL Hgb 6.2 L* (11.4-16.0) gm/dL Hct 18.2 L* (34.0-46.0) % RDW 18.1 H (11.5-15.5) % Plt Count 97 L (150-450) k/uL Neutrophils # (1.3-7.7) k/uL Lymphocytes # (1.0-4.8) k/uL APTT (22.0-30.0) sec D-Dimer (<0.60) mg/L FEU Sodium 128 L (137-145) mmol/L Chloride 95 L (98-107) mmol/L BUN 58 H (7-17) mg/dL Creatinine 2.44 H (0.52-1.04) mg/dL Glucose 158 H (74-99) mg/dL Calcium 7.5 L (8.4-10.2) mg/dL AST 38 H (14-36) U/L Troponin I (0.000-0.034) ng/mL Total Protein 4.7 L (6.3-8.2) g/dL Albumin 2.6 L (3.5-5.0) g/dL Crossmatch See Detail Abdominal x-ray: report reviewed CT scan - chest: report reviewed, image reviewed Assessment and Plan (1) Neutrophilic leukocytosis Current Visit: Yes Status: Acute Code(s): D72.828 - OTHER ELEVATED WHITE BLOOD CELL COUNT SNOMED Code(s): 989024633 (2) Anemia due to antineoplastic chemotherapy Current Visit: Yes Status: Acute Code(s): D64.81 - ANEMIA DUE TO ANTINEOPLASTIC CHEMOTHERAPY; T45.1X5A - ADVERSE EFFECT OF ANTINEOPLASTIC AND IMMUNOSUP DRUGS, INIT SNOMED Code(s): 568217059885842 (3) Chemotherapy-induced thrombocytopenia Current Visit: Yes Status: Acute Code(s): D69.59 - OTHER SECONDARY THROMBOCYTOPENIA; T45.1X5A - ADVERSE EFFECT OF ANTINEOPLASTIC AND IMMUNOSUP DRUGS, INIT SNOMED Code(s): 766704278 (4) Acute hypoxic respiratory failure Current Visit: Yes Status: Acute Code(s): J96.01 - ACUTE RESPIRATORY FAILURE WITH HYPOXIA SNOMED Code(s): 87823797 (5) Metastatic angiosarcoma to liver Current Visit: Yes Status: Acute Code(s): C78.7 - SECONDARY MALIG NEOPLASM OF LIVER AND INTRAHEPATIC BILE DUCT SNOMED Code(s): 03177140 Plan: #Acute hypoxic respiratory failure, likely multifactorial -Presenting with progressive dyspnea after receiving vinorelbine on 05/29/2024 at the [facility] -Noted to have hemoglobin 6.2 on admission with elevated proBNP in the setting of known heart failure with preserved ejection fraction -Currently on high flow nasal cannula with chest x-ray showing bilateral infiltrates concerning for pulmonary edema and unable to exclude infectious etiology -Differential diagnosis includes infection, exacerbation of heart failure with preserved ejection fraction, and potential for pneumonitis secondary to vinoreline -High-resolution CT chest without contrast obtained today revealed bilateral diffuse groundglass opacities in addition to bilateral pulmonary nodules concerning for ARDS/pneumonitis -2 mg/kg methylprednisolone daily for 3 days has been ordered. She is already on PPI for GI prophylaxis -Continue diuretics ordered per primary team #Chemotherapy-induced anemia/thrombocytopenia, neutrophilic leukocytosis -Anemia and thrombocytopenia is likely secondary to vinorelbine -Neutrophilic leukocytosis is likely secondary to use of colony growth stimu lating factor along with possible infection -Anemia workup including iron studies, vitamin B12/methylmalonic acid, folic acid, and thyroid profile ordered -Transfuse for hemoglobin less than 7 and platelets less than or equal to 10 or bleeding #Metastatic angiosarcoma -Reviewed medical records from [facility] -Initially diagnosed in 2015 and initiated systemic treatment in 2017 -She has progressed on multiple lines of therapy and is currently receiving vinorelbine at the [facility] with Dr. Hurt -Last received vinorelbine on 05/29/2024 -Continue to follow-up with the [facility] outpatient Franck Blanchard MD Time with Patient: Greater than 30
[2024-06-01] MEDS: methylPREDNISolone SOD SUCCI 125 MG/2 ML VIAL IV SCH (14:16)
[2024-06-01] MEDS: SYMBICORT 160-4.5 MCG INHALER INHALATION SCH (20:12)
[2024-06-01] MEDS: ACETAMINOPHEN TAB 325 MG TAB PO PRN (21:03)
[2024-06-01 23:23] LABS: % Iron Saturation 81.45 (12.00-45.00); Iron 101 UG/DL (50-170); Total Iron Binding Capacity 124 UG/DL (228-460)
[2024-06-02 08:36] LABS: Anisocytosis Slight; Basophils % (A) 0 %; Eosinophils % (A) 0 %; Lymphocytes # (A) 0.2 k/uL (1.0-4.8); Lymphocytes % (A) 2 %; MCH 29.7 pg (25.0-35.0); MCHC 33.7 g/dL (31.0-37.0); MCV 88.3 fL (80.0-100.0); Mean Platelet Volume 9.7; Monocytes # (A) 0.1 k/uL (0-1.0); Monocytes % (A) 2 %; Neutrophils # (A) 8.2 k/uL (1.3-7.7); Neutrophils % (A) 95 %; Platelet Count 106 k/uL (150-450); RBC 2.26 m/uL (3.80-5.40); RDW 18.2 % (11.5-15.5); WBC 8.6 k/uL (3.8-10.6)
[2024-06-02 08:39] LABS: HCT 19.9 % (34.0-46.0); HGB 6.7 gm/dL (11.4-16.0)
[2024-06-02 08:41] LABS: ALT 20 U/L (4-34); AST 33 U/L (14-36); African American GFR (CKD) 22 (>60 ml/min/1.73 sqM); Albumin 2.5 g/dL (3.5-5.0); Alkaline Phosphatase 75 U/L (38-126); Anion Gap 9 mmol/L; Bilirubin, Delta 0.3 mg/dL (0.0-0.2); Bilirubin,Unconjugated 0.5 mg/dL (0.0-1.1); Blood Urea Nitrogen 73 mg/dL (7-17); Calcium 7.7 mg/dL (8.4-10.2); Carbon Dioxide 23 mmol/L (22-30); Chloride 96 mmol/L (98-107); Glucose 159 mg/dL (74-99); Magnesium 2.6 mg/dL (1.6-2.3); Non-African American GFR(CKD) 19 (>60 ml/min/1.73 sqM); Potassium 3.7 mmol/L (3.5-5.1); Sodium 128 mmol/L (137-145); Total Bilirubin 0.8 mg/dL (0.2-1.3); Total Protein 4.6 g/dL (6.3-8.2)
--- NOTE | 2024-06-02 10:53 | P.PN ---
Subjective Progress Note Date: 06/02/24 Principal diagnosis: Shortness of breath. Pulmonary consult dated June 01, 2024. 78-year-old female who is seen in the emergency department, room 23. The patient was seen there initially on May 31. She came into the hospital, complaining of shortness of breath. The patient has a history of angiosarcoma, being followed at the [facility], receiving chemotherapy there. The patient had recent chemotherapy, and apparently afterward developed significant weakness, and shortness of breath. In addition, the patient has been requiring blood transfusions, weekly. The patient follows with Dr. Galdamez in this area. The patient states that she was very short of breath, and could not even stand up. For that reason, she was evaluated, in the emergency department, and admitted. While we saw her, she was on Airvo, at 40 L/min, with an FiO2 of 90%. She had been receiving a unit of packed red blood cells. She is not receiving any IV fluids. She was given singular 10 mg, Symbicort 160/4.5, 2 puffs twice a day, and DuoNebs, 4 times daily and as needed. The patient was given Rocephin empirically, because of concerns of infection. She is on home O2, at 10 L/min. Laboratory data includes a white count 23.5, hemoglobin 6.2, hematocrit 18.2, and a platelet count of 97,000. D-dimer was 5.56. Sodium 128, potassium 4.6, chloride 95, CO2 26, BUN 58, creatinine 2.44. Glucose is 158. Calcium 7.5. Troponin 0.035. N-terminal proBNP 4480. Albumin 2.6. Viral studies were negative. Chest x-ray shows cardiomegaly, small bilateral pleural effusions, and patchy infiltrates bilaterally, suggesting either infection, or CHF. Progress note dated June 02, 2024. This is a 78-year-old female with history of angiosarcoma, currently being treated with chemotherapy, at the [facility]. The patient was seen by our medical oncologist yesterday. The patient came in with profound shortness of breath. There was a component of fluid overload, and possibly also infection. In addition, medical oncology thought the patient may be having a reaction, to her chemotherapeutic agent, and started the patient on corticosteroids. Today she is feeling much better. She currently is on Airvo at 40 L/min with an FiO2 of 70%. We gave her Rocephin yesterday. She continues on updrafts with DuoNeb, and Symbicort. In addition, she is currently on Solu- Medrol. Labs today include a white count 8.6, hemoglobin 6.7, hematocrit 19.9, and a platelet count of 106,000. Sodium 128, potassium 3.7, chlorides 96, CO2 23, BUN 73, creatinine 2.39. Viral studies are negative. CT showed innumerable pulmonary nodules, which may relate to metastatic disease, versus infectious etiology. In addition, there is nonspecific mediastinal adenopathy. Objective - Vital Signs Vital signs: Vital Signs Temp 97.8 F 06/02/24 09:10 Pulse 87 06/02/24 09:10 Resp 19 06/02/24 09:10 BP 124/61 06/02/24 09:10 Pulse Ox 94 L 06/02/24 08:16 FiO2 70 06/02/24 09:10 Intake & Output 06/01/24 06/02/24 06/02/24 18:59 06:59 18:59 Intake Total 428 10 118 Output Total 1925 Balance 428 -1915 118 Weight 76.204 kg Intake: IV 10 Invasive Line 1 10 Oral 118 118 Blood Product 310 Rc Irr As1 Unit 310 [id number] Output: Urine 1925 Other: Voiding Method External Catheter # Voids 3 - Exam No acute distress, oriented 3. Currently on Airvo, at 40 L/min with an FiO2 of the %. HEENT examination is grossly unremarkable. Neck supple. Full range of motion. No adenopathy thyromegaly or neck vein distention. Cardiovascular examination reveals regular rhythm rate. S1-S2 normal. No S3 or S4. No discernible murmur noted. Lungs reveal bilateral coarse rhonchi. Few scattered crackles. No wheezes. Abdomen soft bowel sounds are heard. No masses or tenderness. Extremities are intact. No cyanosis clubbing or edema. Skin is without rash or lesion. Neurologic examination is brief but nonfocal. - Labs CBC & Chem 7: 06/02/24 08:03 06/02/24 08:03 Labs: Abnormal Lab Results - Last 24 Hours (Table) 05/31/24 06/01/24 06/01/24 Range/Units 19:28 12:40 12:40 RBC (3.80-5.40) m/uL Hgb (11.4-16.0) gm/dL Hct (34.0-46.0) % RDW (11.5-15.5) % Plt Count (150-450) k/uL Neutrophils # (1.3-7.7) k/uL Lymphocytes # (1.0-4.8) k/uL Sodium 126 L (137-145) mmol/L Chloride 94 L (98-107) mmol/L BUN 65 H (7-17) mg/dL Creatinine 2.30 H (0.52-1.04) mg/dL Glucose 113 H (74-99) mg/dL Calcium 7.6 L (8.4-10.2) mg/dL Magnesium (1.6-2.3) mg/dL TIBC (228-460) UG/DL % Saturation (12.00-45.00) Transferrin (204.0-354.0) mg/dL Ferritin (10.0-291.0) ng/mL Delta Bilirubin (0.0-0.2) mg/dL Total Protein (6.3-8.2) g/dL Albumin (3.5-5.0) g/dL Vitamin B12 (200.0-944.0) pg/mL Folate (4.40-31.00) ng/mL Procalcitonin 7.31 H (0.02-0.50) ng/mL Crossmatch See Detail 06/01/24 06/01/24 06/02/24 Range/Units 12:40 12:40 08:03 RBC 2.26 L (3.80-5.40) m/uL Hgb 6.7 L* (11.4-16.0) gm/dL Hct 19.9 L* (34.0-46.0) % RDW 18.2 H (11.5-15.5) % Plt Count 106 L (150-450) k/uL Neutrophils # 8.2 H (1.3-7.7) k/uL Lymphocytes # 0.2 L (1.0-4.8) k/uL Sodium (137-145) mmol/L Chloride (98-107) mmol/L BUN (7-17) mg/dL Creatinine (0.52-1.04) mg/dL Glucose (74-99) mg/dL Calcium (8.4-10.2) mg/dL Magnesium (1.6-2.3) mg/dL TIBC 124 L (228-460) UG/DL % Saturation 81.45 H (12.00-45.00) Transferrin 88.5 L (204.0-354.0) mg/dL Ferritin 4229.0 H (10.0-291.0) ng/mL Delta Bilirubin (0.0-0.2) mg/dL Total Protein (6.3-8.2) g/dL Albumin (3.5-5.0) g/dL Vitamin B12 1318.0 H (200.0-944.0) pg/mL Folate 31.50 H (4.40-31.00) ng/mL Procalcitonin (0.02-0.50) ng/mL Crossmatch 06/02/24 Range/Units 08:03 RBC (3.80-5.40) m/uL Hgb (11.4-16.0) gm/dL Hct (34.0-46.0) % RDW (11.5-15.5) % Plt Count (150-450) k/uL Neutrophils # (1.3-7.7) k/uL Lymphocytes # (1.0-4.8) k/uL Sodium 128 L (137-145) mmol/L Chloride 96 L (98-107) mmol/L BUN 73 H (7-17) mg/dL Creatinine 2.39 H (0.52-1.04) mg/dL Glucose 159 H (74-99) mg/dL Calcium 7.7 L (8.4-10.2) mg/dL Magnesium 2.6 H (1.6-2.3) mg/dL TIBC (228-460) UG/DL % Saturation (12.00-45.00) Transferrin (204.0-354.0) mg/dL Ferritin (10.0-291.0) ng/mL Delta Bilirubin 0.3 H (0.0-0.2) mg/dL Total Protein 4.6 L (6.3-8.2) g/dL Albumin 2.5 L (3.5-5.0) g/dL Vitamin B12 (200.0-944.0) pg/mL Folate (4.40-31.00) ng/mL Procalcitonin (0.02-0.50) ng/mL Crossmatch Assessment and Plan Assessment: Acute hypoxemic respiratory failure, which might be multifactorial, in part related to fluid overload,possible underlying pneumonia, and/or, her chemotherapeutic agent (Vinorelbine). History of metastatic left breast angiosarcoma, currently undergoing chemotherapy at [facility]. Acute on chronic anemia, requiring frequent blood transfusions. History of hypertension. History of hyperlipidemia. History of congestive heart failure. Stage IV chronic kidney disease. Valvular heart disease. History of breast cancer. History of factor V Leiden factor deficiency. Lifelong non-smoker. History of asthma. Plan: Plan dated June 01, 2024. The patient is seen in the emergency department. She comes in with profound hypoxemic respiratory failure, and significant shortness of breath. In additi on, the patient has acute on chronic anemia, and requires frequent blood transfusions. The patient was given singular 10 mg at bedtime, and Symbicort 160/4.5, 2 puffs twice a day. She was also started on updrafts with DuoNeb, 4 times daily and as needed. At home, the patient is on oxygen at 10 L. Rocephin is given to the patient empirically. A procalcitonin level was ordered. Labs, x-rays, medications are reviewed. I mention to the primary service, the patient should be transferred to the [facility], or all of her current doctors are. The only doctor that she sees in this area is Dr. Galdamez. Prognosis is guarded. Plan dated June 02, 2024. The patient is feeling much better today. Her oxygen requirements have actually come down. She can take deep breaths. She was started on Solu-Medrol by medical oncology yesterday. The patient is also receiving Rocephin, updrafts, and Symbicort. Labs, x-rays, medications are reviewed. We will continue to follow the patient, make recommendations. We were hoping to transfer the patient to the [facility], which is where she receives her chemotherapy, and all her doctors are, other than her primary physician of Dr. Galdamez. We will continue to follow make recommendations. Appreciate input by medical oncology. Time with Patient: Less than 30
--- NOTE | 2024-06-02 12:54 | P.PN ---
Subjective Progress Note Date: 06/02/24 Principal diagnosis: Metastatic angiosarcoma -Afebrile, no acute events overnight -Progressive decrease in FiO2 to 70% from 90% -She notes less dyspnea today than she has over the past few days with no new signs or symptoms Objective - Vital Signs Vital signs: Vital Signs Temp 97.8 F 06/02/24 11:39 Pulse 80 06/02/24 12:44 Resp 18 06/02/24 11:57 BP 153/68 06/02/24 11:57 Pulse Ox 96 06/02/24 11:57 FiO2 70 06/02/24 12:32 Intake & Output 06/01/24 06/02/24 06/02/24 18:59 06:59 18:59 Intake Total 428 10 118 Output Total 1925 Balance 428 -1915 118 Weight 76.204 kg Intake: IV 10 Invasive Line 1 10 Oral 118 118 Blood Product 310 0 Unit 0 Rc Irr As1 Unit 310 [id number] Output: Urine 5 Other: Voiding Method External Catheter # Voids 3 - Constitutional General appearance: Present: cooperative, no acute distress - EENT Eyes: Present: EOMI - Respiratory Respiratory: bilateral: other (Bilateral crackles less prominent on today's exam) - Cardiovascular Rhythm: regular - Gastrointestinal General gastrointestinal: Present: soft. Absent: distended - Integumentary Integumentary: Present: pale. Absent: rash - Neurologic Neurologic: Present: CNII-XII intact. Absent: focal deficits - Psychiatric Psychiatric: Present: A&O x's 3, appropriate affect, intact judgment & insight - Labs CBC & Chem 7: 06/02/24 08:03 06/02/24 08:03 Labs: Abnormal Lab Results - Last 24 Hours (Table) 05/31/24 06/01/24 06/01/24 Range/Units 19:28 12:40 12:40 RBC (3.80-5.40) m/uL Hgb (11.4-16.0) gm/dL Hct (34.0-46.0) % RDW (11.5-15.5) % Plt Count (150-450) k/uL Neutrophils # (1.3-7.7) k/uL Lymphocytes # (1.0-4.8) k/uL Sodium 126 L (137-145) mmol/L Chloride 94 L (98-107) mmol/L BUN 65 H (7-17) mg/dL Creatinine 2.30 H (0.52-1.04) mg/dL Glucose 113 H (74-99) mg/dL Calcium 7.6 L (8.4-10.2) mg/dL Magnesium (1.6-2.3) mg/dL TIBC (228-460) UG/DL % Saturation (12.00-45.00) Transferrin (204.0-354.0) mg/dL Ferritin (10.0-291.0) ng/mL Delta Bilirubin (0.0-0.2) mg/dL Total Protein (6.3-8.2) g/dL Albumin (3.5-5.0) g/dL Vitamin B12 (200.0-944.0) pg/mL Folate (4.40-31.00) ng/mL Procalcitonin 7.31 H (0.02-0.50) ng/mL Crossmatch See Detail 06/01/24 06/01/24 06/02/24 Range/Units 12:40 12:40 08:03 RBC 2.26 L (3.80-5.40) m/uL Hgb 6.7 L* (11.4-16.0) gm/dL Hct 19.9 L* (34.0-46.0) % RDW 18.2 H (11.5-15.5) % Plt Count 106 L (150-450) k/uL Neutrophils # 8.2 H (1.3-7.7) k/uL Lymphocytes # 0.2 L (1.0-4.8) k/uL Sodium (137-145) mmol/L Chloride (98-107) mmol/L BUN (7-17) mg/dL Creatinine (0.52-1.04) mg/dL Glucose (74-99) mg/dL Calcium (8.4-10.2) mg/dL Magnesium (1.6-2.3) mg/dL TIBC 124 L (228-460) UG/DL % Saturation 81.45 H (12.00-45.00) Transferrin 88.5 L (204.0-354.0) mg/dL Ferritin 4229.0 H (10.0-291.0) ng/mL Delta Bilirubin (0.0-0.2) mg/dL Total Protein (6.3-8.2) g/dL Albumin (3.5-5.0) g/dL Vitamin B12 1318.0 H (200.0-944.0) pg/mL Folate 31.50 H (4.40-31.00) ng/mL Procalcitonin (0.02-0.50) ng/mL Crossmatch 06/02/24 Range/Units 08:03 RBC (3.80-5.40) m/uL Hgb (11.4-16.0) gm/dL Hct (34.0-46.0) % RDW (11.5-15.5) % Plt Count (150-450) k/uL Neutrophils # (1.3-7.7) k/uL Lymphocytes # (1.0-4.8) k/uL Sodium 128 L (137-145) mmol/L Chloride 96 L (98-107) mmol/L BUN 73 H (7-17) mg/dL Creatinine 2.39 H (0.52-1.04) mg/dL Glucose 159 H (74-99) mg/dL Calcium 7.7 L (8.4-10.2) mg/dL Magnesium 2.6 H (1.6-2.3) mg/dL TIBC (228-460) UG/DL % Saturation (12.00-45.00) Transferrin (204.0-354.0) mg/dL Ferritin (10.0-291.0) ng/mL Delta Bilirubin 0.3 H (0.0-0.2) mg/dL Total Protein 4.6 L (6.3-8.2) g/dL Albumin 2.5 L (3.5-5.0) g/dL Vitamin B12 (200.0-944.0) pg/mL Folate (4.40-31.00) ng/mL Procalcitonin (0.02-0.50) ng/mL Crossmatch Assessment and Plan (1) Neutrophilic leukocytosis Current Visit: Yes Status: Acute Code(s): D72.828 - OTHER ELEVATED WHITE BLOOD CELL COUNT SNOMED Code(s): 152057048 (2) Anemia due to antineoplastic chemotherapy Current Visit: Yes Status: Acute Code(s): D64.81 - ANEMIA DUE TO ANTINEOPLASTIC CHEMOTHERAPY; T45.1X5A - ADVERSE EFFECT OF ANTINEOPLASTIC AND IMMUNOSUP DRUGS, INIT SNOMED Code(s): 444415181428120 (3) Chemotherapy-induced thrombocytopenia Current Visit: Yes Status: Acute Code(s): D69.59 - OTHER SECONDARY THROMBOCYTOPENIA; T45.1X5A - ADVERSE EFFECT OF ANTINEOPLASTIC AND IMMUNOSUP D RUGS, INIT SNOMED Code(s): 459384493 (4) Acute hypoxic respiratory failure Current Visit: Yes Status: Acute Code(s): J96.01 - ACUTE RESPIRATORY FAILURE WITH HYPOXIA SNOMED Code(s): 98930945 (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 -Noted to have hemoglobin 6.2 on admission with elevated proBNP in the setting of known heart failure with preserved ejection fraction -Currently on high flow nasal cannula with chest x-ray showing bilateral infiltrates concerning for pulmonary edema and unable to exclude infectious etiology -Differential diagnosis includes infection, exacerbation of heart failure with preserved ejection fraction, and pneumonitis secondary to vinoreline -High-resolution CT chest without contrast obtained on 06/01/24 revealed bilateral diffuse groundglass opacities in addition to bilateral pulmonary nodules concerning for ARDS/pneumonitis -2 mg/kg methylprednisolone started on 06/01/2024 with improved dyspnea -Continue methylprednisolone daily in addition to diuretics and antibiotics #Chemotherapy-induced anemia/thrombocytopenia, neutrophilic leukocytosis -Anemia and thrombocytopenia is likely secondary to vinorelbine -Neutrophilic leukocytosis is likely secondary to use of colony growth stimulating factor along with possible infection -Anemia workup including iron studies, vitamin B12/methylmalonic acid, folic acid, and thyroid profile revealed no deficiencies -Transfuse for hemoglobin less than 7 and platelets less than or equal to 10 or bleeding #Metastatic angiosarcoma -Reviewed medical records from [facility] -Initially diagnosed in 2015 and initiated systemic treatment in 2017 -She has progressed on multiple lines of therapy and is currently receiving vinorelbine at the [facility] with Dr. Hurt -Last received vinorelbine on 05/29/2024 (cycle 4, day 1 ?) -Unclear if the bilateral nodules seen on CT imaging have increased compared to prior staging imaging performed at the [facility] -Continue to follow-up with the [facility] outpatient Franck Blanchard MD
--- NOTE | 2024-06-02 14:00 | P.PN ---
Subjective Patient is a pleasant 78 years old female with past medical history of multiple medical problems including chronic kidney disease stage IV and history of angiosarcoma of the left breast, she follows up with Dr. Alexandra at [facility], she states she has evidence of metastasis to the liver and lung and she got chemotherapy 2 days prior to coming to this facility. Patient presents because of worsening dyspnea but no chest pain and some dry cough She does not have specific GI/ symptoms. No headache weakness or numbness. She denies smoking alcohol or illicit drugs. She is currently requiring 4 L of oxygen via airvo,. She is afebrile She has leukocytosis of 22,000, hemoglobin 7 came back to 6.2 and she is getting 1 unit of blood Platelet count 84 Sodium 128 Creatinine elevated 2.4 with baseline 2.1-2.4 D-dimer was elevated 5.5 Troponin 0.35 proBNP is high 4480 EKG showing sinus rhythm at [address]-T changes Chest x-ray showing bilateral patchy opacities suspicious for pulmonary edema Currently she is on IV Lasix twice daily at 40 mg. 06/02 Patient today remains on 40 L/min of oxygen via Airvo, patient reports feeling better. She is not in severe respiratory distress No other new complaint Her leukocytosis significantly improved down to 8.6, hemoglobin 6.7 and another unit of blood transfusion is ordered, platelet count 106 Sodium stable about 128 Creatinine stable at 2.39. CT of the chest without contrast showing innumerable lung nodules which could be metastatic disease versus infection with mediastinal lymphadenopathy Pro- Calcitonin is elevated 7.3 Patient kept on ceftriaxone 1 g twice daily and IV Lasix 40 mg twice daily. IV steroids added x 3 days by oncologist Yesterday pulmonary team recommended to transfer the patient [facility]. I talked to transfer center at [facility] and they say they have no bed to accommodate the patient and recommended to keep the patient in our facility and get treatment. This was explained to the patient and she verbalized understanding and acceptance Review of systems CONSTITUTIONAL: No fever, no malaise, no fatigue. HEENT: No recent visual problems or hearing problems. Denied any sore throat. GENITOURINARY: Denies any burning micturition, frequency, or urgency. MUSCULOSKELETAL/RHEUMATOLOGICAL: Denies any joint pain, swelling, or any muscle pain. ENDOCRINE: Denies any polyuria or polydipsia. Active Medications Generic Name Dose Route Start Last Admin Trade Name Freq PRN Reason Stop Dose Admin Acetaminophen 325 mg 06/01/24 09:55 06/01/24 21:03 Acetaminophen Tab 325 Mg Tab PO 325 mg Q6HR PRN Administration Fever and/ or Pain Hydrocodone Bitart/Acetaminophen 1 each 06/01/24 09:54 06/01/24 10:46 Hydrocodone/Apap 5-325mg 1 Each Tab PO 1 each Q12HR PRN Administration Pain Albuterol/Ipratropium 3 ml 06/01/24 09:00 06/02/24 12:30 Ipratropium-Albuterol 3 Ml Neb INHALATION 3 ml RT-QID MAREN Administration Albuterol/Ipratropium 3 ml 06/01/24 08:01 Ipratropium-Albuterol 3 Ml Neb INHALATION RT-Q2H PRN Shortness Of Breath Or Wheezing Amlodipine Besylate 10 mg 05/31/24 21:00 06/01/24 20:20 Amlodipine 10 Mg Tab PO 10 mg HS MAREN Administration Atorvastatin Calcium 20 mg 05/31/24 21:00 06/01/24 20:20 Atorvastatin 20 Mg Tab PO 20 mg HS MAREN Administration Budesonide/Formoterol Fumarate 2 puff 06/01/24 20:00 06/02/24 08:12 Symbicort 160-4.5 Mcg Inhaler INHALATION Not Given RT-BID MAREN Carvedilol 3.125 mg 05/31/24 20:45 06/02/24 09:17 Carvedilol 3.125 Mg Tab PO 3.125 mg BID-W/MEALS MAREN Administration Fluticasone Propionate 2 spray 06/01/24 09:00 06/02/24 09:17 Fluticasone Nasal 50mcg/[place] 16gm Btl EA NOSTRIL 2 spray DAILY MAREN Administration Furosemide 40 mg 06/01/24 09:00 06/01/24 20:20 Furosemide 10 Mg/Ml 4 Ml Vial IV 40 mg BID MAREN Administration Gabapentin 600 mg 05/31/24 21:00 06/01/24 20:21 Gabapentin 300 Mg Cap PO 600 mg BID@1600,2100 MAREN Administration Ceftriaxone Sodium 1 gm/ 50 mls @ 100 mls/hr 06/01/24 09:00 06/02/24 09:18 Sodium Chloride IVPB 100 mls/hr Q12HR MAREN Administration Protocol Lactobacillus Acidophilus 1 each 06/01/24 09:00 06/02/24 09:18 Lactobacillus Acidophilus/Pect 1 Each Capsule PO 1 each DAILY MAREN Administration Loratadine 10 mg 06/01/24 09:00 06/02/24 09:19 Loratadine 10 Mg Tab PO 10 mg DAILY MAREN Administration Methylprednisolone Sodium Succinate 152.4 mg 06/01/24 13:30 06/02/24 09:19 Methylprednisolone Sod Succi 125 Mg/2 Ml Vial 2 mg/kg (152.4 mg) 06/03/24 09:01 152.4 mg IV Administration DAILY MAREN Montelukast Sodium 10 mg 05/31/24 21:00 06/01/24 20:20 Montelukast 10 Mg Tab PO 10 mg HS MAREN Administration Naloxone HCl 0.2 mg 05/31/24 19:13 Naloxone 0.4 Mg/Ml 1 Ml Vial IV Q2M PRN Opioid Reversal Pantoprazole Sodium 40 mg 06/01/24 09:00 06/02/24 09:18 Pantoprazole 40 Mg Tablet PO 40 mg DAILY MAREN Administration Prochlorperazine Maleate 10 mg 05/31/24 19:24 Prochlorperazine 10 Mg Tab PO Q6H PRN Nausea Objective - Vital Signs Vital signs: Vital Signs Temp 97.8 F 06/02/24 11:39 Pulse 80 06/02/24 12:44 Resp 18 06/02/24 11:57 BP 153/68 06/02/24 11:57 Pulse Ox 96 06/02/24 11:57 FiO2 70 06/02/24 12:32 Intake & Output 06/01/24 06/02/24 06/02/24 18:59 06:59 18:59 Intake Total 428 10 118 Output Total 1925 Balance 428 -1915 118 Weight 76.204 kg Intake: IV 10 Invasive Line 1 10 Oral 118 118 Blood Product 310 0 Unit 0 Rc Irr As1 Unit 310 [id number] Output: Urine 5 Other: Voiding Method External Catheter External Catheter # Voids 3 - Exam -GENERAL: The patient is alert and oriented x3, not in any acute distress. Well developed, well nourished. Generally weak HEENT: Pupils are round and equally reacting to light. EOMI. No scleral icterus. No conjunctival pallor. Normocephalic, atraumatic. No pharyngeal erythema. No thyromegaly. CARDIOVASCULAR: S1 and S2 present. No murmurs, rubs, or gallops. -PULMONARY: Chest is clear to auscultation, no wheezing , no c bilateral crepitation, mildly tachypneic ABDOMEN: Soft, nontender, nondistended, normoactive bowel sounds. No palpable organomegaly. MUSCULOSKELETAL: No joint swelling or deformity. EXTREMITIES: No cyanosis, clubbing, or pedal edema. NEUROLOGICAL: Gross neurological examination did not reveal any focal deficits. SKIN: No rashes. no petechiae. - Labs CBC & Chem 7: 06/02/24 08:03 06/02/24 08:03 Labs: Abnormal Lab Results - Last 24 Hours (Table) 05/31/24 06/01/24 06/01/24 Range/Units 19:28 12:40 12:40 RBC (3.80-5.40) m/uL Hgb (11.4-16.0) gm/dL Hct (34.0-46.0) % RDW (11.5-15.5) % Plt Count (150-450) k/uL Neutrophils # (1.3-7.7) k/uL Lymphocytes # (1.0-4.8) k/uL Sodium (137-145) mmol/L Chloride (98-107) mmol/L BUN (7-17) mg/dL Creatinine (0.52-1.04) mg/dL Glucose (74-99) mg/dL Calcium (8.4-10.2) mg/dL Magnesium (1.6-2.3) mg/dL TIBC 124 L (228-460) UG/DL % Saturation 81.45 H (12.00-45.00) Transferrin 88.5 L (204.0-354.0) mg/dL Ferritin 4229.0 H (10.0-291.0) ng/mL Delta Bilirubin (0.0-0.2) mg/dL Total Protein (6.3-8.2) g/dL Albumin (3.5-5.0) g/dL Vitamin B12 1318.0 H (200.0-944.0) pg/mL Folate (4.40-31.00) ng/mL Procalcitonin 7.31 H (0.02-0.50) ng/mL Crossmatch See Detail 06/01/24 06/02/24 06/02/24 Range/Units 12:40 08:03 08:03 RBC 2.26 L (3.80-5.40) m/uL Hgb 6.7 L* (11.4-16.0) gm/dL Hct 19.9 L* (34.0-46.0) % RDW 18.2 H (11.5-15.5) % Plt Count 106 L (150-450) k/uL Neutrophils # 8.2 H (1.3-7.7) k/uL Lymphocytes # 0.2 L (1.0-4.8) k/uL Sodium 128 L (137-145) mmol/L Chloride 96 L (98-107) mmol/L BUN 73 H (7-17) mg/dL Creatinine 2.39 H (0.52-1.04) mg/dL Glucose 159 H (74-99) mg/dL Calcium 7.7 L (8.4-10.2) mg/dL Magnesium 2.6 H (1.6-2.3) mg/dL TIBC (228-460) UG/DL % Saturation (12.00-45.00) Transferrin (204.0-354.0) mg/dL Ferritin (10.0-291.0) ng/mL Delta Bilirubin 0.3 H (0.0-0.2) mg/dL Total Protein 4.6 L (6.3-8.2) g/dL Albumin 2.5 L (3.5-5.0) g/dL Vitamin B12 (200.0-944.0) pg/mL Folate 31.50 H (4.40-31.00) ng/mL Procalcitonin (0.02-0.50) ng/mL Crossmatch Assessment and Plan Assessment: Acute pulmonary edema, acute CHF with unknown ejection fraction, cannot rule out pneumonia. CT of the chest showing bilateral multiple lung nodules suspicious for metastatic disease versus pneumonia. 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 Her oncologist is Dr. Anguiano Hypervolemic hyponatremia Acute kidney injury on CKD stage IV Elevated troponin secondary to kidney disease and CHF Acute hypoxic respiratory failure Plan: Continue with IV Lasix Monitor labs and creatinine Continue with ceftriaxone Patient is getting second unit of blood transfusion and monitor hemoglobin Pulmonary and cardiology consult Follow-upCalcitonin is elevated I discussed the case with the transfer center at [facility], patient is not accepted at this point as there is limitation in bed availability at the accepting hospital. Patient follow-up with oncology team at [facility], she got chemotherapy 2 to 3 days earlier I discussed the case with pulmonary team who recommended transfer the patient back [facility], I talked to the patient and she is agreeable. Discussed with the staff to start the process Labs and medication were reviewed.. Continue same treatment. Continue with symptomatic treatment. Resume home medication. Monitor labs and vitals. DVT and GI prophylaxis. Further recommendations as per clinical course of the patient DVT prophylaxis: Hold AC for severe anemia, continue with mechanical GI Prophylaxis: Ppi Prognosis is guarded
--- NOTE | 2024-06-02 15:39 | P.CRDCN ---
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 She is s/p chemotherapy 2 days ago. Repeat in the hospital because of worsening dyspnea. She denies any substernal chest pressure. She does endorse some dry cough. She denies any palpitations syncopal episode lightheadedness. On admission ECG showed sinus rhythm, right bundle heart rate 86 bpm, nonspecific ST changes, NT-proBNP 4400, troponin 0.35 Hemoglobin was 7 followed by 6.2 yesterday. Status post blood transfusion. Creatinine was 2.4. Baseline is around 2.1-2.4 REVIEW OF SYSTEMS 14 point review of system is negative except what is mentioned above in HPI. PHYSICAL EXAMINATION Vital signs reviewed. Head: Normocephalic. Eyes: Sclerae nonicteric. Neck: Brisk carotid upstroke, no jugular venous distention. Lungs: Crackles audible bilateral lung. Diminished breath sounds. Heart: Regular rate and rhythm, S1-S2, no S3, no murmur or rub. Abdomen: Soft nontender, positive bowel sounds. Extremities: No edema, intact distal pulses. Neuro: Alert, oritented, no focal deficits. Detailed neuro exam was not performed. 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 Most likely related to poor renal clearance toxemia Bulimic hyponatremia PLAN Blood transfusion if hemoglobin less than 7 Continue IV Lasix 40 mg twice daily Obtain echocardiogram Further recommendations to follow Andrew Strickland MD, FACC, RPVI Thank you for allowing [facility] to participate in this patient's care. Feel free to reach out in case of any followup questions. 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, right knee oa, positive factor 5 leiden History of Any Multi-Drug Resistant Organisms: None Reported Past Surgical History: Orthopedic Surgery Additional Past Surgical History / Comment(s): mastectomy, left total knee replacement, right chest wall mediport/power port Past Anesthesia/Blood Transfusion Reactions: No Reported Reaction Smoking Status: Former smoker - Past Family History Father History Unknown: Yes Family Medical History: Unable to Obtain Additional Family Medical History / Comment(s): patient is adopted Medications and Allergies Home Medications Medication Instructions Recorded Confirmed Type Albuterol Inhaler [Ventolin Hfa 2 puff INHALATION RT-Q4H PRN 08/10/22 05/31/24 History Inhaler] Atorvastatin [Lipitor] 20 mg PO HS 08/10/22 05/31/24 History Fexofenadine HCl [Amelia Allergy] 180 mg PO DAILY 08/10/22 05/31/24 History Fluticasone Nasal [place] [Flonase 2 spr EA NOSTRIL DAILY 08/10/22 05/31/24 History Nasal [place]] Gabapentin 600 mg PO BID@1600,2100 08/10/22 05/31/24 History Lactobacillus Rhamnosus GG 1 cap PO DAILY 08/10/22 05/31/24 History [Culturelle] Lidocaine-Prilocaine Cream [Emla 1 applic TOPICAL DAILY PRN 08/10/22 05/31/24 History Cream 2.5%/2.5%] Montelukast [Singulair] 10 mg PO HS 08/10/22 05/31/24 History Omeprazole [PriLOSEC] 20 mg PO DAILY 08/10/22 05/31/24 History Prochlorperazine [Compazine] 10 mg PO Q6H PRN 08/10/22 05/31/24 History amLODIPine [Norvasc] 10 mg PO HS 08/10/22 05/31/24 History Sennosides [Senokot] 17.2 mg PO DAILY PRN 05/31/24 05/31/24 History Sodium Zirconium Cyclosilicate 10 gm PO DAILY PRN 05/31/24 05/31/24 History [Lokelma] Torsemide [Demadex] 50 mg PO DAILY PRN 05/31/24 05/31/24 History Torsemide [Demadex] 50 mg PO GUZMAN 05/31/24 05/31/24 History Ubidecarenone [Coenzyme Q10] 100 mg PO BID 05/31/24 05/31/24 History carvediloL [Coreg] 3.125 mg PO BID 05/31/24 05/31/24 History fentaNYL 12MCG/HR PATCH [Duragesic 1 patch TRANSDERM Q72H 05/31/24 05/31/24 History 12MCG/HR] hydrALAZINE HCL [Apresoline] 25 mg PO BID 05/31/24 05/31/24 History hydrALAZINE HCL [Apresoline] 25 mg PO DAILY PRN 05/31/24 05/31/24 History oxyCODONE HCL [OxyIR] 5 mg PO Q6H PRN 05/31/24 05/31/24 History polyethylene glycoL 3350 [Miralax] 17 gm PO DAILY PRN 05/31/24 05/31/24 History Allergies Allergy/AdvReac Type Severity Reaction Status Date / Time tomato Allergy Rash/Hives Verified 05/31/24 19:18 all over from raw tomatoes Physical Exam Vitals: Vital Signs Temp Pulse Pulse Resp BP BP BP 06/02/24 15:07 98.2 F 77 18 144/70 06/02/24 14:00 87 19 06/02/24 13:55 80 19 120/67 06/02/24 13:30 86 19 134/70 06/02/24 12:45 87 19 149/67 06/02/24 12:44 80 06/02/24 12:32 84 06/02/24 11:57 86 18 153/68 06/02/24 11:39 97.8 F 86 19 124/69 06/02/24 09:10 97.8 F 87 19 124/61 06/02/24 08:25 84 06/02/24 08:16 88 06/02/24 08:00 87 18 06/02/24 04:14 06/02/24 03:23 98.4 F 75 17 141/69 06/01/24 23:56 06/01/24 23:28 98.1 F 82 18 129/63 06/01/24 20:19 71 18 06/01/24 20:12 74 18 06/01/24 19:49 98.1 F 80 16 135/68 06/01/24 16:40 98.5 F 83 19 130/68 06/01/24 16:36 06/01/24 15:44 81 18 121/71 Pulse Ox FiO2 06/02/24 15:07 96 70 06/02/24 14:00 06/02/24 13:55 92 L 06/02/24 13:30 94 L 06/02/24 12:45 93 L 06/02/24 12:44 06/02/24 12:32 70 06/02/24 11:57 96 06/02/24 11:39 92 L 06/02/24 09:10 70 06/02/24 08:25 06/02/24 08:16 94 L 70 06/02/24 08:00 06/02/24 04:14 94 L 75 06/02/24 03:23 94 L 70 06/01/24 23:56 95 76 06/01/24 23:28 94 L 76 06/01/24 20:19 06/01/24 20:12 94 L 75 06/01/24 19:49 97 77 06/01/24 16:40 94 L 70 06/01/24 16:36 75 06/01/24 15:44 91 L Intake and Output 06/02/24 06/02/24 06/02/24 06:59 14:59 22:59 Intake Total 398 Output Total 1525 Balance -1525 398 Intake: Oral 118 Blood Product 280 Rc Pheresis Irrad As 3 280 Unit [id number] Output: Urine 1525 Other: Voiding Method External Catheter External Catheter Results 06/02/24 08:03 06/02/24 08:03 Cardiac Enzymes 06/02/24 Range/Units 08:03 AST 33 (14-36) U/L CBC 06/02/24 Range/Units 08:03 WBC 8.6 (3.8-10.6) k/uL RBC 2.26 L (3.80-5.40) m/uL Hgb 6.7 L* (11.4-16.0) gm/dL Hct 19.9 L* (34.0-46.0) % Plt Count 106 L (150-450) k/uL Comprehensive Metabolic Panel 06/02/24 Range/Units 08:03 Sodium 128 L (137-145) mmol/L Potassium 3.7 (3.5-5.1) mmol/L Chloride 96 L (98-107) mmol/L Carbon Dioxide 23 (22-30) mmol/L BUN 73 H (7-17) mg/dL Creatinine 2.39 H (0.52-1.04) mg/dL Glucose 159 H (74-99) mg/dL Calcium 7.7 L (8.4-10.2) mg/dL Unconjugated Bilirubin 0.5 (0.0-1.1) mg/dL AST 33 (14-36) U/L ALT 20 (4-34) U/L Alkaline Phosphatase 75 (38-126) U/L Total Protein 4.6 L (6.3-8.2) g/dL Albumin 2.5 L (3.5-5.0) g/dL Current Medications Generic Name Dose Route Start Last Admin Trade Name Freq PRN Reason Stop Dose Admin Acetaminophen 325 mg 06/01/24 09:55 06/01/24 21:03 Acetaminophen Tab 325 Mg Tab PO 325 mg Q6HR PRN Administration Fever and/ or Pain Hydrocodone Bitart/Acetaminophen 1 each 06/01/24 09:54 06/01/24 10:46 Hydrocodone/Apap 5-325mg 1 Each Tab PO 1 each Q12HR PRN Administration Pain Albuterol/Ipratropium 3 ml 06/01/24 09:00 06/02/24 12:30 Ipratropium-Albuterol 3 Ml Neb INHALATION 3 ml RT-QID MAREN Administration Albuterol/Ipratropium 3 ml 06/01/24 08:01 Ipratropium-Albuterol 3 Ml Neb INHALATION RT-Q2H PRN Shortness Of Breath Or Wheezing Amlodipine Besylate 10 mg 05/31/24 21:00 06/01/24 20:20 Amlodipine 10 Mg Tab PO 10 mg HS MAREN Administration Atorvastatin Calcium 20 mg 05/31/24 21:00 06/01/24 20:20 Atorvastatin 20 Mg Tab PO 20 mg HS MAREN Administration Budesonide/Formoterol Fumarate 2 puff 06/01/24 20:00 06/02/24 08:12 Symbicort 160-4.5 Mcg Inhaler INHALATION Not Given RT-BID MAREN Carvedilol 3.125 mg 05/31/24 20:45 06/02/24 09:17 Carvedilol 3.125 Mg Tab PO 3.125 mg BID-W/MEALS MAREN Administration Fluticasone Propionate 2 spray 06/01/24 09:00 06/02/24 09:17 Fluticasone Nasal 50mcg/[place] 16gm Btl EA NOSTRIL 2 spray DAILY MAREN Administration Furosemide 40 mg 06/01/24 09:00 06/02/24 15:02 Furosemide 10 Mg/Ml 4 Ml Vial IV 40 mg BID MAREN Administration Gabapentin 600 mg 05/31/24 21:00 06/01/24 20:21 Gabapentin 300 Mg Cap PO 600 mg BID@1600,2100 MAREN Administration Ceftriaxone Sodium 1 gm/ 50 mls @ 100 mls/hr 06/01/24 09:00 06/02/24 09:18 Sodium Chloride IVPB 100 mls/hr Q12HR MAREN Administration Protocol Lactobacillus Acidophilus 1 each 06/01/24 09:00 06/02/24 09:18 Lactobacillus Acidophilus/Pect 1 Each Capsule PO 1 each DAILY MAREN Administration Loratadine 10 mg 06/01/24 09:00 06/02/24 09:19 Loratadine 10 Mg Tab PO 10 mg DAILY MAREN Administration Methylprednisolone Sodium Succinate 152.4 mg 06/01/24 13:30 06/02/24 09:19 Methylprednisolone Sod Succi 125 Mg/2 Ml Vial 2 mg/kg (152.4 mg) 06/03/24 09:01 152.4 mg IV Administration DAILY MAREN Montelukast Sodium 10 mg 05/31/24 21:00 06/01/24 20:20 Montelukast 10 Mg Tab PO 10 mg HS MAREN Administration Naloxone HCl 0.2 mg 05/31/24 19:13 Naloxone 0.4 Mg/Ml 1 Ml Vial IV Q2M PRN Opioid Reversal Pantoprazole Sodium 40 mg 06/01/24 09:00 06/02/24 09:18 Pantoprazole 40 Mg Tablet PO 40 mg DAILY MAREN Administration Prochlorperazine Maleate 10 mg 05/31/24 19:24 Prochlorperazine 10 Mg Tab PO Q6H PRN Nausea Intake and Output 06/02/24 06/02/24 06/02/24 06:59 14:59 22:59 Intake Total 398 Output Total 1525 Balance -1525 398 Intake: Oral 118 Blood Product 280 Rc Pheresis Irrad As 3 280 Unit [id number] Output: Urine 1525 Other: Voiding Method External Catheter External Catheter 06/02/24 08:03 06/02/24 08:03
--- NOTE | 2024-06-02 15:40 | P.PN ---
Subjective Progress Note Date: 06/02/24 HISTORY OF PRESENTING ILLNESS 78-year-old female with past medical history of CKD stage IV, history of ang iosarcoma of left breast with lung and liver metastasis, follows up at [facility]. She is s/p chemotherapy 2 days ago. Repeat in the hospital because of worsening dyspnea. She denies any substernal chest pressure. She does endorse some dry cough. She denies any palpitations syncopal episode lightheadedness. On admission ECG showed sinus rhythm, right bundle heart rate 86 bpm, non specific ST changes, NT-proBNP 4400, troponin 0.35 Hemoglobin was 7 followed by 6.2 yesterday. Status post blood transfusion. Creatinine was 2.4. Baseline is around 2.1-2.4 Progress note May 2024 Patient is seen and examined at bedside this a.m. Hemoglobin still less than 7 requiring further blood transfusions. Still appears mildly volume overloaded. Still has crackles in the lungs and is hypoxic. Will continue IV diuretics. Await echocardiogram results PHYSICAL EXAMINATION Vital signs reviewed. Head: Normocephalic. Eyes: Sclerae nonicteric. Neck: Brisk carotid upstroke, no jugular venous distention. Lungs: Crackles audible bilateral lung. Diminished breath sounds. Heart: Regular rate and rhythm, S1-S2, no S3, no murmur or rub. Abdomen: Soft nontender, positive bowel sounds. Extremities: No edema, intact distal pulses. Neuro: Alert, oritented, no focal deficits. Detailed neuro exam was not performed. 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 Most likely related to poor renal clearance toxemia Bulimic hyponatremia PLAN Blood transfusion if hemoglobin less than 7 Continue IV Lasix 40 mg twice daily Obtain echocardiogram Further recommendations to follow Objective - Vital Signs Vital signs: Vital Signs Temp 98.2 F 06/02/24 15:07 Pulse 77 06/02/24 15:07 Resp 18 06/02/24 15:07 BP 144/70 06/02/24 15:07 Pulse Ox 96 06/02/24 15:07 FiO2 70 06/02/24 15:07 Intake & Output 06/01/24 06/02/24 06/02/24 18:59 06:59 18:59 Intake Total 428 10 398 Output Total 1925 Balance 428 -1915 398 Weight 76.204 kg Intake: IV 10 Invasive Line 1 10 Oral 118 118 Blood Product 310 280 Rc Irr As1 Unit 310 [id number] Rc Pheresis Irrad As 3 280 Unit [id number] Output: Urine 1924 Other: Voiding Method External Catheter External Catheter # Voids 3 - Labs CBC & Chem 7: 06/02/24 08:03 06/02/24 08:03 Labs: Abnormal Lab Results - Last 24 Hours (Table) 05/31/24 06/01/24 06/01/24 Range/Units 19:28 12:40 12:40 RBC (3.80-5.40) m/uL Hgb (11.4-16.0) gm/dL Hct (34.0-46.0) % RDW (11.5-15.5) % Plt Count (150-450) k/uL Neutrophils # (1.3-7.7) k/uL Lymphocytes # (1.0-4.8) k/uL Sodium (137-145) mmol/L Chloride (98-107) mmol/L BUN (7-17) mg/dL Creatinine (0.52-1.04) mg/dL Glucose (74-99) mg/dL Calcium (8.4-10.2) mg/dL Magnesium (1.6-2.3) mg/dL TIBC 124 L (228-460) UG/DL % Saturation 81.45 H (12.00-45.00) Transferrin 88.5 L (204.0-354.0) mg/dL Ferritin 4229.0 H (10.0-291.0) ng/mL Delta Bilirubin (0.0-0.2) mg/dL Total Protein (6.3-8.2) g/dL Albumin (3.5-5.0) g/dL Vitamin B12 1318.0 H (200.0-944.0) pg/mL Folate (4.40-31.00) ng/mL Procalcitonin 7.31 H (0.02-0.50) ng/mL Crossmatch See Detail 06/01/24 06/02/24 06/02/24 Range/Units 12:40 08:03 08:03 RBC 2.26 L (3.80-5.40) m/uL Hgb 6.7 L* (11.4-16.0) gm/dL Hct 19.9 L* (34.0-46.0) % RDW 18.2 H (11.5-15.5) % Plt Count 106 L (150-450) k/uL Neutrophils # 8.2 H (1.3-7.7) k/uL Lymphocytes # 0.2 L (1.0-4.8) k/uL Sodium 128 L (137-145) mmol/L Chloride 96 L (98-107) mmol/L BUN 73 H (7-17) mg/dL Creatinine 2.39 H (0.52-1.04) mg/dL Glucose 159 H (74-99) mg/dL Calcium 7.7 L (8.4-10.2) mg/dL Magnesium 2.6 H (1.6-2.3) mg/dL TIBC (228-460) UG/DL % Saturation (12.00-45.00) Transferrin (204.0-354.0) mg/dL Ferritin (10.0-291.0) ng/mL Delta Bilirubin 0.3 H (0.0-0.2) mg/dL Total Protein 4.6 L (6.3-8.2) g/dL Albumin 2.5 L (3.5-5.0) g/dL Vitamin B12 (200.0-944.0) pg/mL Folate 31.50 H (4.40-31.00) ng/mL Procalcitonin (0.02-0.50) ng/mL Crossmatch
--- NOTE | 2024-06-02 15:48 | P.PN ---
Subjective Progress Note Date: 06/02/24 HISTORY OF PRESENTING ILLNESS 78-year-old female with past medical history of CKD stage IV, history of ang iosarcoma of left breast with lung and liver metastasis, follows up at [facility]. She is s/p chemotherapy 2 days ago. Repeat in the hospital because of worsening dyspnea. She denies any substernal chest pressure. She does endorse some dry cough. She denies any palpitations syncopal episode lightheadedness. On admission ECG showed sinus rhythm, right bundle heart rate 86 bpm, non specific ST changes, NT-proBNP 4400, troponin 0.35 Hemoglobin was 7 followed by 6.2 yesterday. Status post blood transfusion. Creatinine was 2.4. Baseline is around 2.1-2.4 Progress note May 2024 Patient is seen and examined at bedside this a.m. Hemoglobin still less than 7 requiring further blood transfusions. Still appears mildly volume overloaded. Still has crackles in the lungs and is hypoxic. PHYSICAL EXAMINATION Vital signs reviewed. Head: Normocephalic. Eyes: Sclerae nonicteric. Neck: Brisk carotid upstroke, no jugular venous distention. Lungs: Crackles audible bilateral lung. Diminished breath sounds. On high flow nasal oxygen, Heart: Regular pulses, mild systolic murmur audible. Abdomen: Soft nontender, positive bowel sounds. Extremities: No edema, intact distal pulses. Neuro: Alert, oritented, no focal deficits. Detailed neuro exam was not performed. ASSESSMENT Mild HFpEF exacerbation. 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 Most likely related to poor renal clearance Echocardiogram from [facility] May 2024, EF 60%, RVSP 47, mild mitral stenosis, mild mitral regurgitation PLAN Blood transfusion if hemoglobin less than 7 Continue IV Lasix 40 mg twice daily. Continue IV diuretics today, consider transitioning to p.o. tomorrow Continue other cardiac medications. No need to repeat echocardiogram. Objective - Vital Signs Vital signs: Vital Signs Temp 98.2 F 06/02/24 15:07 Pulse 77 06/02/24 15:07 Resp 18 06/02/24 15:07 BP 144/70 06/02/24 15:07 Pulse Ox 96 06/02/24 15:07 FiO2 70 06/02/24 15:07 Intake & Output 06/01/24 06/02/24 06/02/24 18:59 06:59 18:59 Intake Total 428 10 398 Output Total 1925 Balance 428 -1915 398 Weight 76.204 kg Intake: IV 10 Invasive Line 1 10 Oral 118 118 Blood Product 310 280 Rc Irr As1 Unit 310 [id number] Rc Pheresis Irrad As 3 280 Unit [id number] Output: Urine 1925 Other: Voiding Method External Catheter External Catheter # Voids 3 - Labs CBC & Chem 7: 06/02/24 08:03 06/02/24 08:03 Labs: Abnormal Lab Results - Last 24 Hours (Table) 05/31/24 06/01/24 06/01/24 Range/Units 19:28 12:40 12:40 RBC (3.80-5.40) m/uL Hgb (11.4-16.0) gm/dL Hct (34.0-46.0) % RDW (11.5-15.5) % Plt Count (150-450) k/uL Neutrophils # (1.3-7.7) k/uL Lymphocytes # (1.0-4.8) k/uL Sodium (137-145) mmol/L Chloride (98-107) mmol/L BUN (7-17) mg/dL Creatinine (0.52-1.04) mg/dL Glucose (74-99) mg/dL Calcium (8.4-10.2) mg/dL Magnesium (1.6-2.3) mg/dL TIBC 124 L (228-460) UG/DL % Saturation 81.45 H (12.00-45.00) Transferrin 88.5 L (204.0-354.0) mg/dL Ferritin 4229.0 H (10.0-291.0) ng/mL Delta Bilirubin (0.0-0.2) mg/dL Total Protein (6.3-8.2) g/dL Albumin (3.5-5.0) g/dL Vitamin B12 1318.0 H (200.0-944.0) pg/mL Folate (4.40-31.00) ng/mL Procalcitonin 7.31 H (0.02-0.50) ng/mL Crossmatch See Detail 06/01/24 06/02/24 06/02/24 Range/Units 12:40 08:03 08:03 RBC 2.26 L (3.80-5.40) m/uL Hgb 6.7 L* (11.4-16.0) gm/dL Hct 19.9 L* (34.0-46.0) % RDW 18.2 H (11.5-15.5) % Plt Count 106 L (150-450) k/uL Neutrophils # 8.2 H (1.3-7.7) k/uL Lymphocytes # 0.2 L (1.0-4.8) k/uL Sodium 128 L (137-145) mmol/L Chloride 96 L (98-107) mmol/L BUN 73 H (7-17) mg/dL Creatinine 2.39 H (0.52-1.04) mg/dL Glucose 159 H (74-99) mg/dL Calcium 7.7 L (8.4-10.2) mg/dL Magnesium 2.6 H (1.6-2.3) mg/dL TIBC (228-460) UG/DL % Saturation (12.00-45.00) Transferrin (204.0-354.0) mg/dL Ferritin (10.0-291.0) ng/mL Delta Bilirubin 0.3 H (0.0-0.2) mg/dL Total Protein 4.6 L (6.3-8.2) g/dL Albumin 2.5 L (3.5-5.0) g/dL Vitamin B12 (200.0-944.0) pg/mL Folate 31.50 H (4.40-31.00) ng/mL Procalcitonin (0.02-0.50) ng/mL Crossmatch
[2024-06-02 21:35] LABS: Anisocytosis Slight; Basophils % (A) 0 %; Eosinophils % (A) 0 %; HCT 23.3 % (34.0-46.0); Lymphocytes # (A) 0.3 k/uL (1.0-4.8); Lymphocytes % (A) 2 %; MCH 30.9 pg (25.0-35.0); MCHC 34.4 g/dL (31.0-37.0); MCV 89.7 fL (80.0-100.0); Mean Platelet Volume 9.2; Monocytes # (A) 0.2 k/uL (0-1.0); Monocytes % (A) 2 %; Neutrophils # (A) 11.3 k/uL (1.3-7.7); Neutrophils % (A) 96 %; Platelet Count 146 k/uL (150-450); RBC 2.59 m/uL (3.80-5.40); RDW 16.9 % (11.5-15.5); WBC 11.9 k/uL (3.8-10.6)
[2024-06-03 07:38] LABS: Anisocytosis Slight; Basophils % (A) 0 %; Eosinophils % (A) 0 %; HGB 7.7 gm/dL (11.4-16.0); Lymphocytes # (A) 0.2 k/uL (1.0-4.8); Lymphocytes % (A) 2 %; MCH 31.4 pg (25.0-35.0); MCHC 34.9 g/dL (31.0-37.0); MCV 89.9 fL (80.0-100.0); Mean Platelet Volume 8.5; Monocytes # (A) 0.2 k/uL (0-1.0); Monocytes % (A) 2 %; Neutrophils # (A) 10.1 k/uL (1.3-7.7); Neutrophils % (A) 96 %; Platelet Count 159 k/uL (150-450); RBC 2.45 m/uL (3.80-5.40); RDW 16.9 % (11.5-15.5); WBC 10.5 k/uL (3.8-10.6)
[2024-06-03 07:52] LABS: African American GFR (CKD) 25 (>60 ml/min/1.73 sqM); Anion Gap 12 mmol/L; Blood Urea Nitrogen 87 mg/dL (7-17); Carbon Dioxide 25 mmol/L (22-30); Chloride 94 mmol/L (98-107); Glucose 149 mg/dL (74-99); Non-African American GFR(CKD) 22 (>60 ml/min/1.73 sqM); Potassium 3.9 mmol/L (3.5-5.1); Sodium 131 mmol/L (137-145)
--- NOTE | 2024-06-03 08:35 | P.PN ---
Subjective Progress Note Date: 06/03/24 This is a 78-year-old female with a history of angiosarcoma of the left breast who follows with the [facility]. Patient had chemotherapy 2 days prior to coming to the emergency room and presented with complaints of worsening dyspnea and dry cough. Reportedly patient states there is evidence of metastasis to the liver and the lung. Patient has had 2 units of blood since admission, current hemoglobin today is 7.7. Patient remains on high flow oxygen at 20 L/min, was on 40 L/min over the weekend. Apparently over the weekend they tried to get patient transferred to the [facility] however they did not have a bed available. Patient seen this morning sitting up in bed resting comfortably. She reports she is still feeling somewhat weak. She is requesting her Burgos catheter to be removed. Objective - Vital Signs Vital signs: Vital Signs Temp 98.5 F 06/02/24 20:30 Pulse 82 06/03/24 08:00 Resp 18 06/03/24 08:00 BP 139/55 06/03/24 08:00 Pulse Ox 96 06/03/24 08:00 FiO2 70 06/03/24 08:00 Intake & Output 06/02/24 06/03/24 06/03/24 18:59 06:59 18:59 Intake Total 518 Output Total 300 2350 Balance 218 -2350 Weight 84 kg Intake: Oral 238 Blood Product 280 Rc Pheresis Irrad As 3 280 Unit [id number] Output: Urine 300 2350 Other: Voiding Method External Catheter Indwelling Catheter - Constitutional General appearance: Present: cooperative, no acute distress - EENT Eyes: Present: PERRLA - Neck Neck: Present: normal ROM. Absent: lymphadenopathy, rigidity - Respiratory Respiratory: bilateral: diminished - Cardiovascular Rhythm: regular Heart sounds: normal: S1, S2 - Gastrointestinal General gastrointestinal: Present: soft. Absent: tenderness - Integumentary Integumentary: Present: normal, normal turgor - Musculoskeletal Musculoskeletal: Present: generalized weakness - Psychiatric Psychiatric: Present: A&O x's 3 - Labs CBC & Chem 7: 06/03/24 07:06 06/03/24 07:06 Labs: Abnormal Lab Results - Last 24 Hours (Table) 05/31/24 06/02/24 06/02/24 Range/Units 19:28 08:03 08:03 WBC (3.8-10.6) k/uL RBC 2.26 L (3.80-5.40) m/uL Hgb 6.7 L* (11.4-16.0) gm/dL Hct 19.9 L* (34.0-46.0) % RDW 18.2 H (11.5-15.5) % Plt Count 106 L (150-450) k/uL Neutrophils # 8.2 H (1.3-7.7) k/uL Lymphocytes # 0.2 L (1.0-4.8) k/uL Sodium 128 L (137-145) mmol/L Chloride 96 L (98-107) mmol/L BUN 73 H (7-17) mg/dL Creatinine 2.39 H (0.52-1.04) mg/dL Glucose 159 H (74-99) mg/dL Calcium 7.7 L (8.4-10.2) mg/dL Magnesium 2.6 H (1.6-2.3) mg/dL Delta Bilirubin 0.3 H (0.0-0.2) mg/dL Total Protein 4.6 L (6.3-8.2) g/dL Albumin 2.5 L (3.5-5.0) g/dL Crossmatch See Detail 06/02/24 06/03/24 06/03/24 Range/Units 21:26 07:06 07:06 WBC 11.9 H (3.8-10.6) k/uL RBC 2.59 L 2.45 L (3.80-5.40) m/uL Hgb 8.0 L 7.7 L (11.4-16.0) gm/dL Hct 23.3 L 22.0 L (34.0-46.0) % RDW 16.9 H 16.9 H (11.5-15.5) % Plt Count 146 L (150-450) k/uL Neutrophils # 11.3 H 10.1 H (1.3-7.7) k/uL Lymphocytes # 0.3 L 0.2 L (1.0-4.8) k/uL Sodium 131 L (137-145) mmol/L Chloride 94 L (98-107) mmol/L BUN 87 H (7-17) mg/dL Creatinine 2.14 H (0.52-1.04) mg/dL Glucose 149 H (74-99) mg/dL Calcium 8.0 L (8.4-10.2) mg/dL Magnesium (1.6-2.3) mg/dL Delta Bilirubin (0.0-0.2) mg/dL Total Protein (6.3-8.2) g/dL Albumin (3.5-5.0) g/dL Crossmatch Assessment and Plan (1) Angiosarcoma Current Visit: Yes Status: Acute Code(s): C49.9 - MALIGNANT NEOPLASM OF CONNECTIVE AND SOFT TISSUE, UNSP SNOMED Code(s): 668733138 (2) Acute hypoxic respiratory failure Current Visit: Yes Status: Acute Code(s): J96.01 - ACUTE RESPIRATORY FAILURE WITH HYPOXIA SNOMED Code(s): 40257251 (3) History of CHF (congestive heart failure) Current Visit: No Status: Acute Code(s): Z86.79 - PERSONAL HISTORY OF OTHER DISEASES OF THE CIRCULATORY SYSTEM SNOMED Code(s): 911889318 (4) History of hypertension Current Visit: Yes Status: Acute Code(s): Z86.79 - PERSONAL HISTORY OF OTHER DISEASES OF THE CIRCULATORY SYSTEM SNOMED Code(s): 940504839 (5) History of asthma Current Visit: Yes Status: Acute Code(s): Z87.09 - PERSONAL HISTORY OF OTHER DISEASES OF THE RESPIRATORY SYSTEM SNOMED Code(s): 774374928 (6) Anemia Current Visit: Yes Status: Acute Code(s): D64.9 - ANEMIA, UNSPECIFIED SNOMED Code(s): 900685871 (7) 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 Discontinue Burgos catheter. Appreciate input from pulmonary and oncology. Patient seen and evaluated by nurse practitioner, physician in agreement with plan.
[2024-06-03 11:04] VITALS: BMI 29.0
--- NOTE | 2024-06-03 13:05 | P.PN ---
Subjective Progress Note Date: 06/03/24 Principal diagnosis: SOB, hypoxia. 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 She has an appetite, she wants to move around, she feels that her breathing is a little bit better and it was confirmed with nursing that they are decreasing the Airvo and patient is tolerating. She is looking forward to going home. She has no new complaints today. Objective - Vital Signs Vital signs: Vital Signs Temp 98.5 F 06/02/24 20:30 Pulse 74 06/03/24 12:34 Resp 18 06/03/24 11:45 BP 139/55 06/03/24 08:00 Pulse Ox 96 06/03/24 12:14 FiO2 60 06/03/24 12:14 Intake & Output 06/02/24 06/03/24 06/03/24 18:59 06:59 18:59 Intake Total 518 240 Output Total 300 2350 Balance 218 -2350 240 Weight 84 kg 84 kg Intake: Oral 238 240 Blood Product 280 Rc Pheresis Irrad As 3 280 Unit [id number] Output: Urine 300 2350 Other: Voiding Method External Catheter Indwelling Catheter - Constitutional General appearance: Present: average body habitus, cooperative, no acute distress - EENT Eyes: Present: anicteric sclerae, EOMI ENT: Present: hearing grossly normal, normal oropharynx - Respiratory Respiratory: bilateral: rales, negative: wheezing - Cardiovascular Rhythm: regular - Peripheral edema leg Peripheral Edema: bilateral: None - Gastrointestinal General gastrointestinal: Present: soft - Integumentary Integumentary: Present: normal - Neurologic Neurologic: Present: CNII-XII intact - Musculoskeletal Musculoskeletal: Present: strength equal bilaterally - Psychiatric Psychiatric: Present: A&O x's 3, appropriate affect, intact judgment & insight - Labs CBC & Chem 7: 06/03/24 07:06 06/03/24 07:06 Labs: Abnormal Lab Results - Last 24 Hours (Table) 05/31/24 06/02/24 06/03/24 Range/Units 19:28 21:26 07:06 WBC 11.9 H (3.8-10.6) k/uL RBC 2.59 L 2.45 L (3.80-5.40) m/uL Hgb 8.0 L 7.7 L (11.4-16.0) gm/dL Hct 23.3 L 22.0 L (34.0-46.0) % RDW 16.9 H 16.9 H (11.5-15.5) % Plt Count 146 L (150-450) k/uL Neutrophils # 11.3 H 10.1 H (1.3-7.7) k/uL Lymphocytes # 0.3 L 0.2 L (1.0-4.8) k/uL Sodium (137-145) mmol/L Chloride (98-107) mmol/L BUN (7-17) mg/dL Creatinine (0.52-1.04) mg/dL Glucose (74-99) mg/dL Calcium (8.4-10.2) mg/dL Crossmatch See Detail 06/03/24 Range/Units 07:06 WBC (3.8-10.6) k/uL RBC (3.80-5.40) m/uL Hgb (11.4-16.0) gm/dL Hct (34.0-46.0) % RDW (11.5-15.5) % Plt Count (150-450) k/uL Neutrophils # (1.3-7.7) k/uL Lymphocytes # (1.0-4.8) k/uL Sodium 131 L (137-145) mmol/L Chloride 94 L (98-107) mmol/L BUN 87 H (7-17) mg/dL Creatinine 2.14 H (0.52-1.04) mg/dL Glucose 149 H (74-99) mg/dL Calcium 8.0 L (8.4-10.2) mg/dL Crossmatch Assessment and Plan (1) Acute hypoxic respiratory failure Current Visit: Yes Status: Acute Priority: High Code(s): J96.01 - ACUTE RESPIRATORY FAILURE WITH HYPOXIA SNOMED Code(s): 23839432 (2) 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 Patient is status post 2 units of packed red blood cells, hemoglobin is stable today at 7.7. Cardiology has seen the patient, ECHO pending -Patient has had significant improvement after high dose steroids, antibiotics, blood transfusion and respiratory treatments. -Patient completed 2 mg/kg x 3. Dose reduced to 1 mg/kg to start tomorrow morning. -O2 needs are decreasing. Patient's baseline O2 is 8 L. -Pulmonary is following. Continue antibiotics as well as other supportive respiratory care Angiosarcoma -Diagnosis and treatment as stated in consult -Patient follows at [facility] -Patient is status post cycle 4-day 1 of Navelbine. Treatment will be on hold f or right now. Pthas contacted [facility] -Patient's status, circumstances of current hospitalization will be discussed with her Medical Oncologist at [facility]. Doctor attests: I performed a history and physical examination of this patient, developed impression and plan of care. Discussed with dictator. I agree with dictators note, documented as a scribe.
--- NOTE | 2024-06-03 14:05 | P.PN ---
Subjective HISTORY OF PRESENT ILLNESS: This is a 78-year-old female who follows outpatient with the [facility]. Patient is admitted to the hospital secondary to congestive heart failure. Patient examined this morning at the bedside. Patient remains on IV Lasix 40 mg every 12 hours. Creatinine today 2.14. Patient remains on high flow cannula. Patient currently denies chest pain or pressure. Echocardiogram from [facility] May 2024, EF 60%, RVSP 47, mild mitral stenosis, mild mitral regurgitation. Telemetry reveals sinus mechanism. PHYSICAL EXAM: VITAL SIGNS: Reviewed. GENERAL: Well-developed in no acute distress. NECK: Supple. No JVD or thyromegaly LUNGS: Respirations even and unlabored. Lungs essentially clear to auscultation bilaterally. HEART: Regular rate and rhythm. S1 and S2 heard. EXTREMITIES: Normal range of motion. No clubbing or cyanosis. Peripheral pulses intact. 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 Begin oral Lasix 40 mg daily Further inpatient recommendations from a cardiac standpoint We will sign off. Please reconsult if needed. Nurse practitioner note has been reviewed by physician. Signing provider agrees with the documented findings, assessment, and plan of care documented by [facility] as a scribe. Objective - Vital Signs Vital signs: Vital Signs Temp 98.5 F 06/02/24 20:30 Pulse 72 06/03/24 09:09 Resp 18 06/03/24 08:00 BP 139/55 06/03/24 08:00 Pulse Ox 95 06/03/24 08:53 FiO2 70 06/03/24 08:53 Intake & Output 06/02/24 06/03/24 06/03/24 18:59 06:59 18:59 Intake Total 518 240 Output Total 300 2350 Balance 218 -2350 240 Weight 84 kg 84 kg Intake: Oral 238 240 Blood Product 280 Rc Pheresis Irrad As 3 280 Unit [id number] Output: Urine 300 2350 Other: Voiding Method External Catheter Indwelling Catheter - Labs CBC & Chem 7: 06/03/24 07:06 06/03/24 07:06 Labs: Abnormal Lab Results - Last 24 Hours (Table) 05/31/24 06/02/24 06/03/24 Range/Units 19:28 21:26 07:06 WBC 11.9 H (3.8-10.6) k/uL RBC 2.59 L 2.45 L (3.80-5.40) m/uL Hgb 8.0 L 7.7 L (11.4-16.0) gm/dL Hct 23.3 L 22.0 L (34.0-46.0) % RDW 16.9 H 16.9 H (11.5-15.5) % Plt Count 146 L (150-450) k/uL Neutrophils # 11.3 H 10.1 H (1.3-7.7) k/uL Lymphocytes # 0.3 L 0.2 L (1.0-4.8) k/uL Sodium (137-145) mmol/L Chloride (98-107) mmol/L BUN (7-17) mg/dL Creatinine (0.52-1.04) mg/dL Glucose (74-99) mg/dL Calcium (8.4-10.2) mg/dL Crossmatch See Detail 06/03/24 Range/Units 07:06 WBC (3.8-10.6) k/uL RBC (3.80-5.40) m/uL Hgb (11.4-16.0) gm/dL Hct (34.0-46.0) % RDW (11.5-15.5) % Plt Count (150-450) k/uL Neutrophils # (1.3-7.7) k/uL Lymphocytes # (1.0-4.8) k/uL Sodium 131 L (137-145) mmol/L Chloride 94 L (98-107) mmol/L BUN 87 H (7-17) mg/dL Creatinine 2.14 H (0.52-1.04) mg/dL Glucose 149 H (74-99) mg/dL Calcium 8.0 L (8.4-10.2) mg/dL Crossmatch
--- NOTE | 2024-06-03 15:48 | P.PN ---
Subjective Progress Note Date: 06/03/24 78-year-old female who is seen in the emergency department, room 23. The patient was seen there initially on May 31. She came into the hospital, complaining of shortness of breath. The patient has a history of angiosarcoma, being followed at the [facility], receiving chemotherapy there. The patient had recent chemotherapy, and apparently afterward developed significant weakness, and shortness of breath. In addition, the patient has been requiring blood transfusions, weekly. The patient follows with Dr. Galdamez in this area. The patient states that she was very short of breath, and could not even stand up. For that reason, she was evaluated, in the emergency department, and admitted. While we saw her, she was on Airvo, at 40 L/min, with an FiO2 of 90%. She had been receiving a unit of packed red blood cells. She is not receiving any IV fluids. She was given singular 10 mg, Symbicort 160/4.5, 2 puffs twice a day, and DuoNebs, 4 times daily and as needed. The patient was given Rocephin empirically, because of concerns of infection. She is on home O2, at 10 L/min. Laboratory data includes a white count 23.5, hemoglobin 6.2, hematocrit 18.2, and a platelet count of 97,000. D-dimer was 5.56. Sodium 128, potassium 4.6, chloride 95, CO2 26, BUN 58, creatinine 2.44. Glucose is 158. Calcium 7.5. Troponin 0.035. N-terminal proBNP 4480. Albumin 2.6. Viral studies were negative. Chest x-ray shows cardiomegaly, small bilateral pleural effusions, and patchy infiltrates bilaterally, suggesting either infection, or CHF. Progress note dated June 02, 2024. This is a 78-year-old female with history of angiosarcoma, currently being treated with chemotherapy, at the [facility]. The patient was seen by our medical oncologist yesterday. The patient came in with profound shortness of breath. There was a component of fluid overload, and possibly also infection. In addition, medical oncology thought the patient may be having a reaction, to her chemotherapeutic agent, and started the patient on corticosteroids. Today she is feeling much better. She currently is on Airvo at 40 L/min with an FiO2 of 70%. We gave her Rocephin yesterday. She continues on updrafts with DuoNeb, and Symbicort. In addition, she is currently on Solu-Medrol. Labs today include a white count 8.6, hemoglobin 6.7, hematocrit 19.9, and a platelet count of 106,000. Sodium 128, potassium 3.7, chlorides 96, CO2 23, BUN 73, creatinine 2.39. Viral studies are negative. CT showed innumerable pulmonary nodules, which may relate to metastatic disease, versus infectious etiology. In addition, there is nonspecific mediastinal adenopathy. On 06/03/2024, the patient is being seen for a follow-up. 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 The patient has been having chronic hypoxemia on outpatient basis and her oxygen requirements were in the order of 6 to 8 L and recently that has been worsening in oxygenation. For that reason, the patient was admitted to the hospital. The patient has been receiving Vinorelbine on outpatient basis through [facility]. I reviewed the CAT scan of the chest and the patient has diffuse pulmonary me tastases. And the patient has also developed groundglass bilateral pulmonary filtrates which could be infectious versus drug-induced versus spread of her angiosarcoma. At this point in time, the patient on 4 L with FiO2 of 60%. She has some sputum production and her sputum was somewhat bloody earlier and currently she is not having any hemoptysis. The white cell count of 10.5 with a hemoglobin 7.7 and a platelet count of 159. BUN is 87 with a creatinine of 2.1 and sodium levels at 131. Her procalcitonin level was 7.1 and this could be indicative of underlying bacterial infection. Thyroid function test is within normal limits. The patient is currently on IV Rocephin. The patient is also on Symbicort and DuoNeb nebulized treatments [id number]. She is on Lasix 40 mg p.o. daily. She is following commands and answering questions appropriately. No other significant events overnight. Objective - Vital Signs Vital signs: Vital Signs Temp 98.5 F 06/02/24 20:30 Pulse 72 06/03/24 09:09 Resp 18 06/03/24 11:45 BP 139/55 06/03/24 08:00 Pulse Ox 96 06/03/24 12:14 FiO2 60 06/03/24 12:14 Intake & Output 06/02/24 06/03/24 06/03/24 18:59 06:59 18:59 Intake Total 518 240 Output Total 300 2350 Balance 218 -2350 240 Weight 84 kg 84 kg Intake: Oral 238 240 Blood Product 280 Rc Pheresis Irrad As 3 280 Unit [id number] Output: Urine 300 2350 Other: Voiding Method External Catheter Indwelling Catheter - Exam No acute distress, oriented 3. Currently on Airvo, at 40 L/min with an FiO2 of 60%. No dyspnea at rest. Not using accessory muscles of breathing. HEENT examination is grossly unremarkable. Neck supple. Full range of motion. No adenopathy thyromegaly or neck vein distention. Cardiovascular examination reveals regular rhythm rate. S1-S2 normal. No S3 or S4. No discernible murmur noted. Lungs reveal bilateral coarse rhonchi. Coarse crackles heard throughout the lung slater bilaterally Abdomen soft bowel sounds are heard. No masses or tenderness. Extremities are intact. No cyanosis clubbing or edema. Skin is without rash or lesion. Neurologic examination is brief but nonfocal. - Labs CBC & Chem 7: 06/03/24 07:06 06/03/24 07:06 Labs: Abnormal Lab Results - Last 24 Hours (Table) 05/31/24 06/02/24 06/03/24 Range/Units 19:28 21:26 07:06 WBC 11.9 H (3.8-10.6) k/uL RBC 2.59 L 2.45 L (3.80-5.40) m/uL Hgb 8.0 L 7.7 L (11.4-16.0) gm/dL Hct 23.3 L 22.0 L (34.0-46.0) % RDW 16.9 H 16.9 H (11.5-15.5) % Plt Count 146 L (150-450) k/uL Neutrophils # 11.3 H 10.1 H (1.3-7.7) k/uL Lymphocytes # 0.3 L 0.2 L (1.0-4.8) k/uL Sodium (137-145) mmol/L Chloride (98-107) mmol/L BUN (7-17) mg/dL Creatinine (0.52-1.04) mg/dL Glucose (74-99) mg/dL Calcium (8.4-10.2) mg/dL Crossmatch See Detail 06/03/24 Range/Units 07:06 WBC (3.8-10.6) k/uL RBC (3.80-5.40) m/uL Hgb (11.4-16.0) gm/dL Hct (34.0-46.0) % RDW (11.5-15.5) % Plt Count (150-450) k/uL Neutrophils # (1.3-7.7) k/uL Lymphocytes # (1.0-4.8) k/uL Sodium 131 L (137-145) mmol/L Chloride 94 L (98-107) mmol/L BUN 87 H (7-17) mg/dL Creatinine 2.14 H (0.52-1.04) mg/dL Glucose 149 H (74-99) mg/dL Calcium 8.0 L (8.4-10.2) mg/dL Crossmatch Assessment and Plan Plan: Acute hypoxemic respiratory failure, which might be multifactorial, in part related to fluid overload,possible underlying pneumonia, and/or, her chemotherapeutic agent status post cycle 4-day 1 of Navelbine. The patient has multiple and innumerable lung masses consistent with metastatic disease. In addition, the patient has developed groundglass bilateral pulm infiltrates which could be drug-induced versus infectious versus progression of her metastatic disease with lymphangitic spread. The patient is currently on Airvo, 40 L with FiO2 of 60%. Procalcitonin level is elevated and consider the possibility of active infection and the patient is currently on IV Rocephin. History of metastatic left breast angiosarcoma, currently undergoing chemotherapy at [facility]. Acute on chronic anemia, requiring frequent blood transfusions. History of hypertension. History of hyperlipidemia. History of congestive heart failure. Stage IV chronic kidney disease. Valvular heart disease. History of breast cancer. History of factor V Leiden factor deficiency. Lifelong non-smoker. History of asthma. Plan: Continue Airvo and titrate oxygen flow and oxygen FiO2 to maintain saturation above 90% Continue IV Rocephin Recheck procalcitonin level in a.m. Continue bronchodilators and the patient on Symbicort and DuoNeb nebulized treatments [id number] Reviewed the CAT scan of the chest Prognosis extremely poor based on above-mentioned complications. It is very much likely the patient has developed progression of her metastatic breast angiosarcoma. We will continue to follow make recommendations. Appreciate input by medical oncology. Time with Patient: Less than 30
[2024-06-03] MEDS: polyethylene glycoL 3350 17 GM POWD.PACK PO PRN (21:16)
[2024-06-04 07:11] LABS: Anisocytosis Slight; HCT 22.7 % (34.0-46.0); HGB 7.8 gm/dL (11.4-16.0); MCH 31.2 pg (25.0-35.0); MCHC 34.4 g/dL (31.0-37.0); MCV 90.6 fL (80.0-100.0); Mean Platelet Volume 8.4; Platelet Count 194 k/uL (150-450); RDW 16.8 % (11.5-15.5); WBC 10.5 k/uL (3.8-10.6)
[2024-06-04 07:29] LABS: ALT 64 U/L (4-34); AST 51 U/L (14-36); African American GFR (CKD) 28 (>60 ml/min/1.73 sqM); Albumin 2.7 g/dL (3.5-5.0); Alkaline Phosphatase 98 U/L (38-126); Anion Gap 10 mmol/L; Blood Urea Nitrogen 96 mg/dL (7-17); Calcium 7.8 mg/dL (8.4-10.2); Carbon Dioxide 25 mmol/L (22-30); Chloride 94 mmol/L (98-107); Glucose 137 mg/dL (74-99); Non-African American GFR(CKD) 24 (>60 ml/min/1.73 sqM); Sodium 129 mmol/L (137-145); Total Bilirubin 0.6 mg/dL (0.2-1.3); Total Protein 4.7 g/dL (6.3-8.2)
--- NOTE | 2024-06-04 08:48 | P.PN ---
Subjective Progress Note Date: 06/04/24 This is a 78-year-old female with a history of angiosarcoma of the left breast who follows with the [facility]. Patient had chemotherapy 2 days prior to coming to the emergency room and presented with complaints of worsening dyspnea and dry cough. Reportedly patient states there is evidence of metastasis to the liver and the lung. Patient has had 2 units of blood since admission, current hemoglobin today is 7.7. Patient remains on high flow oxygen at 20 L/min, was on 40 L/min over the weekend. Apparently over the weekend they tried to get patient transferred to the [facility] however they did not have a bed available. Patient seen this morning sitting up in bed resting comfortably. She reports she is still feeling somewhat weak. She is requesting her Burgos catheter to be removed. 06/04/2024 Patient seen and evaluated this morning sitting on side of bed eating breakfast. Patient reports she has been getting up to use the restroom. She is still quite fatigued on getting back from the restroom and is requiring high flow oxygen. Staff has been trying to wean down oxygen. Hemoglobin remains stable, 7.8 today. Objective - Vital Signs Vital signs: Vital Signs Temp 97.8 F 06/04/24 05:15 Pulse 76 06/04/24 08:22 Resp 16 06/04/24 05:15 BP 145/70 06/04/24 05:15 Pulse Ox 95 06/04/24 05:15 FiO2 60 06/04/24 08:07 Intake & Output 06/03/24 06/04/24 06/04/24 18:59 06:59 18:59 Intake Total 358 Output Total 350 Balance 358 -350 Weight 84 kg 78.7 kg Intake: Oral 358 Output: Urine 350 Other: Voiding Method Bedside Commode # Voids 1 - Constitutional General appearance: Present: cooperative, no acute distress - EENT Eyes: Present: PERRLA - Neck Neck: Present: normal ROM. Absent: lymphadenopathy, rigidity - Respiratory Respiratory: bilateral: diminished - Cardiovascular Rhythm: regular Heart sounds: normal: S1, S2 - Gastrointestinal General gastrointestinal: Present: soft. Absent: tenderness - Integumentary Integumentary: Present: normal, normal turgor - Musculoskeletal Musculoskeletal: Present: generalized weakness - Psychiatric Psychiatric: Present: A&O x's 3 - Labs CBC & Chem 7: 06/04/24 06:01 11/26/24 06:01 Labs: Abnormal Lab Results - Last 24 Hours (Table) 06/01/24 06/04/24 06/04/24 Range/Units 11:00 06:01 06:01 RBC 2.50 L (3.80-5.40) m/uL Hgb 7.8 L (11.4-16.0) gm/dL Hct 22.7 L (34.0-46.0) % RDW 16.8 H (11.5-15.5) % Sodium 129 L (137-145) mmol/L Chloride 94 L (98-107) mmol/L BUN 96 H (7-17) mg/dL Creatinine 1.98 H (0.52-1.04) mg/dL Glucose 137 H (74-99) mg/dL Calcium 7.8 L (8.4-10.2) mg/dL AST 51 H (14-36) U/L ALT 64 H (4-34) U/L Total Protein 4.7 L (6.3-8.2) g/dL Albumin 2.7 L (3.5-5.0) g/dL Methylmalonic Acid 0.43 H (<0.40) umol/L Assessment and Plan (1) Angiosarcoma Current Visit: Yes Status: Acute Code(s): C49.9 - MALIGNANT NEOPLASM OF CONNECTIVE AND SOFT TISSUE, UNSP SNOMED Code(s): 837589877 (2) Acute hypoxic respiratory failure Current Visit: Yes Status: Acute Priority: High Code(s): J96.01 - ACUTE RESPIRATORY FAILURE WITH HYPOXIA SNOMED Code(s): 11997080 (3) History of CHF (congestive heart failure) Current Visit: No Status: Acute Code(s): Z86.79 - PERSONAL HISTORY OF OTHER DISEASES OF THE CIRCULATORY SYSTEM SNOMED Code(s): 911130035 (4) History of hypertension Current Visit: Yes Status: Acute Code(s): Z86.79 - PERSONAL HISTORY OF OTHER DISEASES OF THE CIRCULATORY SYSTEM SNOMED Code(s): 487642770 (5) History of asthma Current Visit: Yes Status: Acute Code(s): Z87.09 - PERSONAL HISTORY OF OTHER DISEASES OF THE RESPIRATORY SYSTEM SNOMED Code(s): 463827634 (6) Anemia Current Visit: Yes Status: Acute Code(s): D64.9 - ANEMIA, UNSPECIFIED SNOMED Code(s): 677878326 (7) 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 Appreciate input from pulmonary and oncology. Patient seen and evaluated by nurse practitioner, physician in agreement with plan.
[2024-06-04] MEDS: FUROSEMIDE 40 MG TAB PO SCH (09:05)
[2024-06-04] MEDS: methylPREDNISolone SOD SUCCI 125 MG/2 ML VIAL IV SCH (09:06)
--- NOTE | 2024-06-04 13:38 | P.PN ---
Subjective Progress Note Date: 06/04/24 78-year-old female who is seen in the emergency department, room 23. The patient was seen there initially on May 31. She came into the hospital, complaining of shortness of breath. The patient has a history of angiosarcoma, being followed at the [facility], receiving chemotherapy there. The patient had recent chemotherapy, and apparently afterward developed significant weakness, and shortness of breath. In addition, the patient has been requiring blood transfusions, weekly. The patient follows with Dr. Galdamez in this area. The patient states that she was very short of breath, and could not even stand up. For that reason, she was evaluated, in the emergency department, and admitted. While we saw her, she was on Airvo, at 40 L/min, with an FiO2 of 90%. She had been receiving a unit of packed red blood cells. She is not receiving any IV fluids. She was given singular 10 mg, Symbicort 160/4.5, 2 puffs twice a day, and DuoNebs, 4 times daily and as needed. The patient was given Rocephin empirically, because of concerns of infection. She is on home O2, at 10 L/min. Laboratory data includes a white count 23.5, hemoglobin 6.2, hematocrit 18.2, and a platelet count of 97,000. D-dimer was 5.56. Sodium 128, potassium 4.6, chloride 95, CO2 26, BUN 58, creatinine 2.44. Glucose is 158. Calcium 7.5. Troponin 0.035. N-terminal proBNP 4480. Albumin 2.6. Viral studies were negative. Chest x-ray shows cardiomegaly, small bilateral pleural effusions, and patchy infiltrates bilaterally, suggesting either infection, or CHF. Progress note dated June 02, 2024. This is a 78-year-old female with history of angiosarcoma, currently being treated with chemotherapy, at the [facility]. The patient was seen by our medical oncologist yesterday. The patient came in with profound shortness of breath. There was a component of fluid overload, and possibly also infection. In addition, medical oncology thought the patient may be having a reaction, to her chemotherapeutic agent, and started the patient on corticosteroids. Today she is feeling much better. She currently is on Airvo at 40 L/min with an FiO2 of 70%. We gave her Rocephin yesterday. She continues on updrafts with DuoNeb, and Symbicort. In addition, she is currently on Solu-Medrol. Labs today include a white count 8.6, hemoglobin 6.7, hematocrit 19.9, and a platelet count of 106,000. Sodium 128, potassium 3.7, chlorides 96, CO2 23, BUN 73, creatinine 2.39. Viral studies are negative. CT showed innumerable pulmonary nodules, which may relate to metastatic disease, versus infectious etiology. In addition, there is nonspecific mediastinal adenopathy. On 06/03/2024, the patient is being seen for a follow-up. 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 The patient has been having chronic hypoxemia on outpatient basis and her oxygen requirements were in the order of 6 to 8 L and recently that has been worsening in oxygenation. For that reason, the patient was admitted to the hospital. The patient has been receiving Vinorelbine on outpatient basis through [facility]. I reviewed the CAT scan of the chest and the patient has diffuse pulmonary me tastases. And the patient has also developed groundglass bilateral pulmonary filtrates which could be infectious versus drug-induced versus spread of her angiosarcoma. At this point in time, the patient on 4 L with FiO2 of 60%. She has some sputum production and her sputum was somewhat bloody earlier and currently she is not having any hemoptysis. The white cell count of 10.5 with a hemoglobin 7.7 and a platelet count of 159. BUN is 87 with a creatinine of 2.1 and sodium levels at 131. Her procalcitonin level was 7.1 and this could be indicative of underlying bacterial infection. Thyroid function test is within normal limits. The patient is currently on IV Rocephin. The patient is also on Symbicort and DuoNeb nebulized treatments [id number]. She is on Lasix 40 mg p.o. daily. She is following commands and answering questions appropriately. No other significant events overnight. On 06/04/2024, the patient is being seen for a follow-up. The patient is essentially unchanged. There may be some mild interval improvement in oxygenation. The patient is morning is on Airvo with 40 L with FiO2 of 60%. The patient's procalcitonin level is also dropped from 7.3 down to 2.6 as the patient is being treated with IV Rocephin. Remains on DuoNeb nebulized treatments [id number]. Occasional cough. No hemoptysis. Hemoglobin at 7.8, white cell count of 10.5, sodium levels at 129, BUN is 96 with a creatinine of 1.9 and renal function continues to improve. LFTs are mildly elevated with an AST of 51, AST of 64, normal alkaline phosphatase of 98. The patient's proc alcitonin level has dropped down to 2.65. No other complaints from the patient. She remains on IV Solu-Medrol 80 mg on a daily basis. Objective - Vital Signs Vital signs: Vital Signs Temp 97.8 F 06/04/24 08:00 Pulse 76 06/04/24 11:39 Resp 16 06/04/24 08:00 BP 132/65 06/04/24 08:00 Pulse Ox 95 06/04/24 11:23 FiO2 60 06/04/24 11:23 Intake & Output 06/03/24 06/04/24 06/04/24 18:59 06:59 18:59 Intake Total 358 240 Output Total 350 400 Balance 358 -350 -160 Weight 84 kg 78.7 kg Intake: Oral 358 240 Output: Urine 350 400 Other: Voiding Method Bedside Commode Bedside Commode # Voids 1 - Exam No acute distress, oriented 3. Currently on Airvo, at 40 L/min with an FiO2 of 60%. No dyspnea at rest. Not using accessory muscles of breathing. HEENT examination is grossly unremarkable. Neck supple. Full range of motion. No adenopathy thyromegaly or neck vein distention. Cardiovascular examination reveals regular rhythm rate. S1-S2 normal. No S3 or S4. No discernible murmur noted. Lungs reveal bilateral coarse rhonchi. Coarse crackles heard throughout the lung slater bilaterally Abdomen soft bowel sounds are heard. No masses or tenderness. Extremities are intact. No cyanosis clubbing or edema. Skin is without rash or lesion. Neurologic examination is brief but nonfocal. - Labs CBC & Chem 7: 06/04/24 06:01 06/04/24 06:01 Labs: Abnormal Lab Results - Last 24 Hours (Table) 06/01/24 06/04/24 06/04/24 Range/Units 11:00 06:01 06:01 RBC (3.80-5.40) m/uL Hgb (11.4-16.0) gm/dL Hct (34.0-46.0) % RDW (11.5-15.5) % Sodium 129 L (137-145) mmol/L Chloride 94 L (98-107) mmol/L BUN 96 H (7-17) mg/dL Creatinine 1.98 H (0.52-1.04) mg/dL Glucose 137 H (74-99) mg/dL Calcium 7.8 L (8.4-10.2) mg/dL AST 51 H (14-36) U/L ALT 64 H (4-34) U/L Total Protein 4.7 L (6.3-8.2) g/dL Albumin 2.7 L (3.5-5.0) g/dL Methylmalonic Acid 0.43 H (<0.40) umol/L Procalcitonin 2.65 H (0.02-0.50) ng/mL 06/04/24 Range/Units 06:01 RBC 2.50 L (3.80-5.40) m/uL Hgb 7.8 L (11.4-16.0) gm/dL Hct 22.7 L (34.0-46.0) % RDW 16.8 H (11.5-15.5) % Sodium (137-145) mmol/L Chloride (98-107) mmol/L BUN (7-17) mg/dL Creatinine (0.52-1.04) mg/dL Glucose (74-99) mg/dL Calcium (8.4-10.2) mg/dL AST (14-36) U/L ALT (4-34) U/L Total Protein (6.3-8.2) g/dL Albumin (3.5-5.0) g/dL Methylmalonic Acid (<0.40) umol/L Procalcitonin (0.02-0.50) ng/mL Assessment and Plan Plan: Acute hypoxemic respiratory failure, which might be multifactorial, in part related to fluid overload,possible underlying pneumonia, and/or, her chemotherapeutic agent status post cycle 4-day 1 of Navelbine. The patient has multiple and innumerable lung masses consistent with metastatic disease. In addition, the patient has developed groundglass bilateral pulm infiltrates which could be drug-induced versus infectious versus progression of her metastatic disease with lymphangitic spread. The patient is currently on Airvo, 40 L with FiO2 of 60%. Procalcitonin level is elevated and consider the possibility of active infection and the patient is currently on IV Rocephin. A follow-up procalcitonin level shows that level is improving is currently down to 2.65. Remains on IV Rocephin. Remains on IV Solu-Medrol. History of metastatic left breast angiosarcoma, currently undergoing chemotherapy at [facility]. Acute on chronic anemia, requiring frequent blood transfusions. History of hypertension. History of hyperlipidemia. History of congestive heart failure. Stage IV chronic kidney disease. Valvular heart disease. History of breast cancer. History of factor V Leiden factor deficiency. Lifelong non-smoker. History of asthma. Plan: Continue Airvo and titrate oxygen flow and oxygen FiO2 to maintain saturation above 90%, currently on 40 L and FiO2 will be gradually weaned down Continue IV Rocephin Recheck procalcitonin from this morning showing improvement in the procalcitonin level Continue bronchodilators and the patient on Symbicort and DuoNeb nebulized treatments [id number] Continue IV Solu-Medrol Reviewed the CAT scan of the chest Prognosis extremely poor based on above-mentioned complications. It is very much likely the patient has developed progression of her metastatic breast angiosarcoma. We will continue to follow make recommendations. Appreciate input by medical oncology. Time with Patient: Less than 30
[2024-06-05 06:41] LABS: Anisocytosis Slight; HGB 7.6 gm/dL (11.4-16.0); MCH 30.7 pg (25.0-35.0); MCHC 33.2 g/dL (31.0-37.0); MCV 92.4 fL (80.0-100.0); Mean Platelet Volume 8.6; Platelet Count 208 k/uL (150-450); RBC 2.49 m/uL (3.80-5.40); RDW 16.6 % (11.5-15.5); WBC 8.9 k/uL (3.8-10.6)
[2024-06-05 06:58] LABS: ALT 50 U/L (4-34); AST 27 U/L (14-36); African American GFR (CKD) 28 (>60 ml/min/1.73 sqM); Albumin 2.6 g/dL (3.5-5.0); Alkaline Phosphatase 95 U/L (38-126); Anion Gap 7 mmol/L; Blood Urea Nitrogen 98 mg/dL (7-17); Calcium 7.9 mg/dL (8.4-10.2); Carbon Dioxide 21 mmol/L (22-30); Chloride 101 mmol/L (98-107); Glucose 126 mg/dL (74-99); Non-African American GFR(CKD) 24 (>60 ml/min/1.73 sqM); Potassium 4.1 mmol/L (3.5-5.1); Sodium 129 mmol/L (137-145); Total Bilirubin 0.6 mg/dL (0.2-1.3); Total Protein 4.8 g/dL (6.3-8.2)
[2024-06-05] MEDS: DOCUSATE 100 MG CAP PO PRN (08:12)
--- NOTE | 2024-06-05 08:21 | P.PN ---
Subjective Progress Note Date: 06/04/24 Principal diagnosis: SOB, hypoxia. Metastatic angiosarcoma In f/u today patient reports that she cont to feel good, she was up in chair, walked to bathroom. O2 weaning is in progress. No new complaints today. Objective - Vital Signs Vital signs: Vital Signs Temp 97.8 F 06/04/24 05:15 Pulse 76 06/04/24 08:22 Resp 16 06/04/24 05:15 BP 145/70 06/04/24 05:15 Pulse Ox 95 06/04/24 05:15 FiO2 60 06/04/24 08:07 Intake & Output 06/03/24 06/04/24 06/04/24 18:59 06:59 18:59 Intake Total 358 240 Output Total 350 400 Balance 358 -350 -160 Weight 84 kg 78.7 kg Intake: Oral 358 240 Output: Urine 350 400 Other: Voiding Method Bedside Commode # Voids 1 - Constitutional General appearance: Present: average body habitus, cooperative, no acute distress - EENT Eyes: Present: anicteric sclerae, EOMI ENT: Present: hearing grossly normal - Respiratory Respiratory: bilateral: diminished (weak inspiratory effort) - Cardiovascular Rhythm: regular - Peripheral edema leg Peripheral Edema: bilateral: None - Integumentary Integumentary: Present: normal - Neurologic Neurologic: Present: CNII-XII intact - Musculoskeletal Musculoskeletal: Present: strength equal bilaterally - Psychiatric Psychiatric: Present: A&O x's 3, appropriate affect, intact judgment & insight - Labs CBC & Chem 7: 06/05/24 06:20 06/05/24 06:31 Labs: Abnormal Lab Results - Last 24 Hours (Table) 06/01/24 06/04/24 06/04/24 Range/Units 11:00 06:01 06:01 RBC 2.50 L (3.80-5.40) m/uL Hgb 7.8 L (11.4-16.0) gm/dL Hct 22.7 L (34.0-46.0) % RDW 16.8 H (11.5-15.5) % Sodium 129 L (137-145) mmol/L Chloride 94 L (98-107) mmol/L BUN 96 H (7-17) mg/dL Creatinine 1.98 H (0.52-1.04) mg/dL Glucose 137 H (74-99) mg/dL Calcium 7.8 L (8.4-10.2) mg/dL AST 51 H (14-36) U/L ALT 64 H (4-34) U/L Total Protein 4.7 L (6.3-8.2) g/dL Albumin 2.7 L (3.5-5.0) g/dL Methylmalonic Acid 0.43 H (<0.40) umol/L Assessment and Plan (1) Acute hypoxic respiratory failure Current Visit: Yes Status: Acute Priority: High Code(s): J96.01 - ACUTE RESPIRATORY FAILURE WITH HYPOXIA SNOMED Code(s): 33517062 (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 -Pt is receiving antibiotics, high-dose steroids, hemoglobin is stable today at 7.8, s/p 2 units PRBCs. Subjectively the patient feels better, objectively she is still requiring 60% FiO2, 40L Airvo-no significant decrease. -Patient completed 2 mg/kg x 3. Dose reduced to 1 mg/kg started today. Her resp status is stable. -O2 needs were seeming to decrease, this has not been able to be maintained. Patient's baseline O2 is 8 L. -Pulmonary and Cardiology following, cont treatment per recommendations Angiosarcoma -Diagnosis and treatment as stated in consult, follows at [facility] -Patient is status post cycle 4-day 1 of Navelbine. -Hospital course and pt condition was discussed with patient's primary Medical Oncologist at [facility] this a.m. Concern is that patient has either had a reaction to the vinorelbine or, malignancy is progressing. If a reaction, patient would not be able to receive vinorelbine again. If malignancy is progressing, there are no further conventional treatment options available. These findings were discussed with the patient. Medical Oncologist at [facility] wants to meet with patient and have a discussion, patient wants to do the same. This will be planned once patient has been discharged. Goal of hospitalization is for patient to be near her baseline O2 needs or at least oxygen needs that can be maintained with home O2 equipment. All of patient's questions were answered to her satisfaction Doctor attests: I performed a history and physical examination of this patient, developed impression and plan of care. Discussed with dictator. I agree with dictators note, documented as a scribe.
--- NOTE | 2024-06-05 09:28 | P.PN ---
Subjective Progress Note Date: 06/05/24 Principal diagnosis: Pneumonia with metastatic disease The patient is a 78-year-old white female with history of sarcomatous breast cancer which is metastatic. Admitted for pneumonia as well. Slowly weaning off of oxygen level. Still on Solu-Medrol. Appreciate multiple consultants input. Objective - Vital Signs Vital signs: Vital Signs Temp 98.1 F 06/05/24 07:57 Pulse 83 06/05/24 07:57 Resp 18 06/05/24 07:57 BP 141/75 06/05/24 07:57 Pulse Ox 92 L 06/05/24 07:57 FiO2 42 06/05/24 07:57 Intake & Output 06/04/24 06/05/24 06/05/24 18:59 06:59 18:59 Intake Total 480 0 Output Total 1300 750 Balance -820 -750 0 Weight 78.9 kg Intake: Oral 480 0 Output: Urine 1300 750 Other: Voiding Method Bedside Commode Bedside Commode Bedside Commode # Voids 1 - Constitutional General appearance: Present: average body habitus, cooperative - EENT Eyes: Absent: anicteric sclerae - Neck Neck: Absent: lymphadenopathy - Respiratory Respiratory: right: diminished - Cardiovascular Rhythm: regular Heart sounds: normal: S1, S2 Abnormal Heart Sounds: Absent: S3 Gallop - Gastrointestinal General gastrointestinal: Present: soft. Absent: tenderness - Psychiatric Psychiatric: Present: A&O x's 3 - Labs CBC & Chem 7: 06/05/24 06:20 06/05/24 06:31 Labs: Abnormal Lab Results - Last 24 Hours (Table) 06/04/24 06/05/24 06/05/24 Range/Units 06:01 06:20 06:31 RBC 2.49 L (3.80-5.40) m/uL Hgb 7.6 L (11.4-16.0) gm/dL Hct 23.0 L (34.0-46.0) % RDW 16.6 H (11.5-15.5) % Sodium 129 L (137-145) mmol/L Carbon Dioxide 21 L (22-30) mmol/L BUN 98 H (7-17) mg/dL Creatinine 1.96 H (0.52-1.04) mg/dL Glucose 126 H (74-99) mg/dL Calcium 7.9 L (8.4-10.2) mg/dL ALT 50 H (4-34) U/L Total Protein 4.8 L (6.3-8.2) g/dL Albumin 2.6 L (3.5-5.0) g/dL Procalcitonin 2.65 H (0.02-0.50) ng/mL Assessment and Plan (1) Acute hypoxic respiratory failure Current Visit: Yes Status: Acute Priority: High Code(s): J96.01 - ACUTE RESPIRATORY FAILURE WITH HYPOXIA SNOMED Code(s): 83236922 (2) Anemia due to antineoplastic chemotherapy Current Visit: Yes Status: Acute Code(s): D64.81 - ANEMIA DUE TO ANTINEOPLA STIC CHEMOTHERAPY; T45.1X5A - ADVERSE EFFECT OF ANTINEOPLASTIC AND IMMUNOSUP DRUGS, INIT SNOMED Code(s): 422495797754017 (3) Angiosarcoma Current Visit: Yes Status: Acute Code(s): C49.9 - MALIGNANT NEOPLASM OF CONNECTIVE AND SOFT TISSUE, UNSP SNOMED Code(s): 205691150 (4) CHF exacerbation Current Visit: Yes Status: Acute Code(s): I50.9 - HEART FAILURE, UNSPECIFIED SNOMED Code(s): 314467422 (5) Pneumonia Current Visit: No Status: Acute Code(s): J18.9 - PNEUMONIA, UNSPECIFIED ORGANISM SNOMED Code(s): 842329232 Plan: Slowly weaned to baseline oxygen level. Continue current regimen of treatment. Will DC when cleared by pulmonology. Prognosis is poor secondary to her metastatic disease Check CBC and CMP in a.m. Time with Patient: Greater than 30
--- NOTE | 2024-06-05 14:44 | P.PN ---
Subjective Progress Note Date: 06/05/24 Principal diagnosis: SOB, hypoxia. Metastatic angiosarcoma In f/u today patient reports that she cont to feel good, O2 weaning continues, pt reports she does not feel much of a difference when O2 is decreased. No new complaints today. Objective - Vital Signs Vital signs: Vital Signs Temp 98.1 F 06/05/24 07:57 Pulse 80 06/05/24 12:16 Resp 18 06/05/24 11:18 BP 137/73 06/05/24 11:18 Pulse Ox 91 L 06/05/24 11:18 FiO2 42 06/05/24 07:57 Intake & Output 06/04/24 06/05/24 06/05/24 18:59 06:59 18:59 Intake Total 480 0 Output Total 1300 750 200 Balance -820 -750 -200 Weight 78.9 kg Intake: Oral 480 0 Output: Urine 1300 750 200 Other: Voiding Method Bedside Commode Bedside Commode Bedside Commode # Voids 1 1 # Bowel Movements 1 - Constitutional General appearance: Present: average body habitus, cooperative, mild distress - EENT Eyes: Present: anicteric sclerae, EOMI ENT: Present: hearing grossly normal - Respiratory Respiratory: bilateral: diminished (mildly labored resp at rest) - Cardiovascular Rhythm: regular - Peripheral edema leg Peripheral Edema: bilateral: None - Integumentary Integumentary: Present: normal - Neurologic Neurologic: Present: CNII-XII intact - Musculoskeletal Musculoskeletal: Present: strength equal bilaterally - Psychiatric Psychiatric: Present: A&O x's 3, appropriate affect, intact judgment & insight - Labs CBC & Chem 7: 06/05/24 06:20 06/05/24 06:31 Labs: Abnormal Lab Results - Last 24 Hours (Table) 06/05/24 06/05/24 Range/Units 06:20 06:31 RBC 2.49 L (3.80-5.40) m/uL Hgb 7.6 L (11.4-16.0) gm/dL Hct 23.0 L (34.0-46.0) % RDW 16.6 H (11.5-15.5) % Sodium 129 L (137-145) mmol/L Carbon Dioxide 21 L (22-30) mmol/L BUN 98 H (7-17) mg/dL Creatinine 1.96 H (0.52-1.04) mg/dL Glucose 126 H (74-99) mg/dL Calcium 7.9 L (8.4-10.2) mg/dL ALT 50 H (4-34) U/L Total Protein 4.8 L (6.3-8.2) g/dL Albumin 2.6 L (3.5-5.0) g/dL Assessment and Plan (1) Acute hypoxic respiratory failure Current Visit: Yes Status: Acute Priority: High Code(s): J96.01 - ACUTE RESPIRATORY FAILURE WITH HYPOXIA SNOMED Code(s): 62945707 (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 Anemia is contributing. -Pt did feel some resp improvements with the high dose steroids. IV steroids dose was decreased after 3 doses, breathing stable today. Rx for steroids taper sent to [facility] in case pt gets discharged over the weekend. She is on a PPI already -Hgb would be considered stable at 7.6, s/p 2 units PRBCs for Hgb of 6.2. Casas bjectively the patient feels better. Objectively Airvo FIO2 and oxygen L is decreasing with O2 sats in the low 90's. Goal is to get pt O2 needs so they can be met at home with her O2 concentrator. Patient's baseline O2 is 8 L. -Pulmonary and Cardiology following, cont treatment per recommendations Angiosarcoma -Diagnosis and treatment as stated in consult, follows at [facility] -Patient is status post cycle 4-day 1 of Navelbine. -Hospital course and pt condition was discussed with patient's primary Medical Oncologist at [facility] yesterday. The concern is that patient has either had a reaction to the vinorelbine or, malignancy is progressing. If a reaction, patient would not be able to receive vinorelbine again. If malignancy is progressing, then navelbine not working and would not be given. There are no further conventional treatment options available. These findings were discussed with the patient yesterday. Medical Oncologist at [facility] wants to meet with patient and have a discussion, patient wants to do the same, this is still their plan. Pt will contact [facility] once she has been discharged. Goal of hospitalization is for patient to be near her baseline O2 needs or at least oxygen needs that can be maintained with home O2 equipment. Ok for DC from Hem Onc once cleared by Attending and other consulting Physicians Doctor attests: I performed a history and physical examination of this patient, developed impression and plan of care. Discussed with dictator. I agree with dictators note, documented as a scribe.
--- NOTE | 2024-06-05 19:29 | P.PN ---
Subjective Progress Note Date: 06/05/24 78-year-old female who is seen in the emergency department, room 23. The patient was seen there initially on May 31. She came into the hospital, complaining of shortness of breath. The patient has a history of angiosarcoma, being followed at the [facility], receiving chemotherapy there. The patient had recent chemotherapy, and apparently afterward developed significant weakness, and shortness of breath. In addition, the patient has been requiring blood transfusions, weekly. The patient follows with Dr. Galdamez in this area. The patient states that she was very short of breath, and could not even stand up. For that reason, she was evaluated, in the emergency department, and admitted. While we saw her, she was on Airvo, at 40 L/min, with an FiO2 of 90%. She had been receiving a unit of packed red blood cells. She is not receiving any IV fluids. She was given singular 10 mg, Symbicort 160/4.5, 2 puffs twice a day, and DuoNebs, 4 times daily and as needed. The patient was given Rocephin empirically, because of concerns of infection. She is on home O2, at 10 L/min. Laboratory data includes a white count 23.5, hemoglobin 6.2, hematocrit 18.2, and a platelet count of 97,000. D-dimer was 5.56. Sodium 128, potassium 4.6, chloride 95, CO2 26, BUN 58, creatinine 2.44. Glucose is 158. Calcium 7.5. Troponin 0.035. N-terminal proBNP 4480. Albumin 2.6. Viral studies were negative. Chest x-ray shows cardiomegaly, small bilateral pleural effusions, and patchy infiltrates bilaterally, suggesting either infection, or CHF. Progress note dated June 02, 2024. This is a 78-year-old female with history of angiosarcoma, currently being treated with chemotherapy, at the [facility]. The patient was seen by our medical oncologist yesterday. The patient came in with profound shortness of breath. There was a component of fluid overload, and possibly also infection. In addition, medical oncology thought the patient may be having a reaction, to her chemotherapeutic agent, and started the patient on corticosteroids. Today she is feeling much better. She currently is on Airvo at 40 L/min with an FiO2 of 70%. We gave her Rocephin yesterday. She continues on updrafts with DuoNeb, and Symbicort. In addition, she is currently on Solu-Medrol. Labs today include a white count 8.6, hemoglobin 6.7, hematocrit 19.9, and a platelet count of 106,000. Sodium 128, potassium 3.7, chlorides 96, CO2 23, BUN 73, creatinine 2.39. Viral studies are negative. CT showed innumerable pulmonary nodules, which may relate to metastatic disease, versus infectious etiology. In addition, there is nonspecific mediastinal adenopathy. On 06/03/2024, the patient is being seen for a follow-up. 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 The patient has been having chronic hypoxemia on outpatient basis and her oxygen requirements were in the order of 6 to 8 L and recently that has been worsening in oxygenation. For that reason, the patient was admitted to the hospital. The patient has been receiving Vinorelbine on outpatient basis through [facility]. I reviewed the CAT scan of the chest and the patient has diffuse pulmonary me tastases. And the patient has also developed groundglass bilateral pulmonary filtrates which could be infectious versus drug-induced versus spread of her angiosarcoma. At this point in time, the patient on 4 L with FiO2 of 60%. She has some sputum production and her sputum was somewhat bloody earlier and currently she is not having any hemoptysis. The white cell count of 10.5 with a hemoglobin 7.7 and a platelet count of 159. BUN is 87 with a creatinine of 2.1 and sodium levels at 131. Her procalcitonin level was 7.1 and this could be indicative of underlying bacterial infection. Thyroid function test is within normal limits. The patient is currently on IV Rocephin. The patient is also on Symbicort and DuoNeb nebulized treatments [id number]. She is on Lasix 40 mg p.o. daily. She is following commands and answering questions appropriately. No other significant events overnight. On 06/04/2024, the patient is being seen for a follow-up. The patient is essentially unchanged. There may be some mild interval improvement in oxygenation. The patient is morning is on Airvo with 40 L with FiO2 of 60%. The patient's procalcitonin level is also dropped from 7.3 down to 2.6 as the patient is being treated with IV Rocephin. Remains on DuoNeb nebulized treatments [id number]. Occasional cough. No hemoptysis. Hemoglobin at 7.8, white cell count of 10.5, sodium levels at 129, BUN is 96 with a creatinine of 1.9 and renal function continues to improve. LFTs are mildly elevated with an AST of 51, AST of 64, normal alkaline phosphatase of 98. The patient's proc alcitonin level has dropped down to 2.65. No other complaints from the patient. She remains on IV Solu-Medrol 80 mg on a daily basis. On 06/05/2024, patient is being seen for a follow-up. The patient shows some modest improvement in oxygenation. She was brought down to 50 L of oxygen by nasal cannula and the Airvo system has been discontinued. She seems to be calm and comfortable and she denies having any specific complaints. She remains on Symbicort as maintenance, DuoNeb ON the clock. The patient is also on Lasix 40 mg p.o. on a daily basis. She remains on empiric antibiotic coverage with IV Rocephin and Solu-Medrol 80 mg IV every 24 hours. Labs from today shows a hemoglobin of 7.6, platelet count of 2 8, sodium is 139, BUN is 98 and creatinine is at 1.9. She denies having any specific complaints. She reports modest improvement in overall respiratory status without any interval decompensation. Objective - Vital Signs Vital signs: Vital Signs Temp 98.1 F 06/05/24 07:57 Pulse 84 06/05/24 16:17 Resp 18 06/05/24 15:08 BP 146/65 06/05/24 15:08 Pulse Ox 78 L 06/05/24 15:28 FiO2 42 06/05/24 07:57 Intake & Output 06/04/24 06/05/24 06/05/24 18:59 06:59 18:59 Intake Total 480 0 Output Total 1300 750 200 Balance -820 -750 -200 Weight 78.9 kg Intake: Oral 480 0 Output: Urine 1300 750 200 Other: Voiding Method Bedside Commode Bedside Commode Bedside Commode # Voids 1 1 # Bowel Movements 1 - Exam No acute distress, oriented 3. Currently on 15 L O2 nasal cannula. No dyspnea at rest. Not using accessory muscles of breathing. HEENT examination is grossly unremarkable. Neck supple. Full range of motion. No adenopathy thyromegaly or neck vein distention. Cardiovascular examination reveals regular rhythm rate. S1-S2 normal. No S3 or S4. No discernible murmur noted. Lungs reveal bilateral coarse rhonchi. Coarse crackles heard throughout the lung slater bilaterally Abdomen soft bowel sounds are heard. No masses or tenderness. Extremities are intact. No cyanosis clubbing or edema. Skin is without rash or lesion. Neurologic examination is brief but nonfocal. - Labs CBC & Chem 7: 06/05/24 06:20 06/05/24 06:31 Labs: Abnormal Lab Results - Last 24 Hours (Table) 06/05/24 06/05/24 Range/Units 06:20 06:31 RBC 2.49 L (3.80-5.40) m/uL Hgb 7.6 L (11.4-16.0) gm/dL Hct 23.0 L (34.0-46.0) % RDW 16.6 H (11.5-15.5) % Sodium 129 L (137-145) mmol/L Carbon Dioxide 21 L (22-30) mmol/L BUN 98 H (7-17) mg/dL Creatinine 1.96 H (0.52-1.04) mg/dL Glucose 126 H (74-99) mg/dL Calcium 7.9 L (8.4-10.2) mg/dL ALT 50 H (4-34) U/L Total Protein 4.8 L (6.3-8.2) g/dL Albumin 2.6 L (3.5-5.0) g/dL Assessment and Plan Plan: Acute hypoxemic respiratory failure, which might be multifactorial, in part related to fluid overload,possible underlying pneumonia, and/or, her chemotherapeutic agent status post cycle 4-day 1 of Navelbine. The patient has multiple and innumerable lung masses consistent with metastatic disease. In addition, the patient has developed groundglass bilateral pulm infiltrates which could be drug-induced versus infectious versus progression of her metastatic disease with lymphangitic spread. The patient is currently on 15 L O2 nasal cannula and the patient is currently off air Vo.. Procalcitonin level is elevated and consider the possibility of active infection and the patient is currently on IV Rocephin. A follow-up procalcitonin level shows that level is improving is currently down to 2.65. Remains on IV Rocephin. Remains on IV Solu-Medrol. History of metastatic left breast angiosarcoma, currently undergoing chemothe rapy at [facility]. Acute on chronic anemia, requiring frequent blood transfusions. History of hypertension. History of hyperlipidemia. History of congestive heart failure. Stage IV chronic kidney disease. Valvular heart disease. History of breast cancer. History of factor V Leiden factor deficiency. Lifelong non-smoker. History of asthma. Plan: Patient continues to show some improvement in oxygenation. Patient is currently on 15 L O2 nasal cannula Continue IV Rocephin Recheck procalcitonin from this morning showing improvement in the procalcitonin level Continue bronchodilators and the patient on Symbicort and DuoNeb nebulized treatments [id number] Continue IV Solu-Medrol Reviewed the CAT scan of the chest Prognosis extremely poor based on above-mentioned complications. It is very much likely the patient has developed progression of her metastatic breast angiosarcoma. We will continue to follow make recommendations. Appreciate input by medical oncology. Will try to arrange a concentrator that delivers as high as 10 L for this patient on an outpatient basis. Will provide incentive spirometer Overall prognosis remains poor based on the above. Time with Patient: Less than 30
[2024-06-06] MEDS: HYDROcodone/APAP 5-325MG 1 EACH TAB PO PRN (04:49)
[2024-06-06 10:16] LABS: Anisocytosis Slight; HCT 25.4 % (34.0-46.0); HGB 8.5 gm/dL (11.4-16.0); MCH 31.1 pg (25.0-35.0); MCHC 33.6 g/dL (31.0-37.0); MCV 92.7 fL (80.0-100.0); Mean Platelet Volume 8.1; Platelet Count 304 k/uL (150-450); RBC 2.74 m/uL (3.80-5.40); RDW 16.7 % (11.5-15.5); WBC 11.1 k/uL (3.8-10.6)
[2024-06-06 10:29] LABS: ALT 41 U/L (4-34); AST 23 U/L (14-36); African American GFR (CKD) 34 (>60 ml/min/1.73 sqM); Alkaline Phosphatase 74 U/L (38-126); Anion Gap 7 mmol/L; Blood Urea Nitrogen 88 mg/dL (7-17); Calcium 8.3 mg/dL (8.4-10.2); Carbon Dioxide 24 mmol/L (22-30); Chloride 101 mmol/L (98-107); Glucose 101 mg/dL (74-99); Non-African American GFR(CKD) 29 (>60 ml/min/1.73 sqM); Potassium 4.7 mmol/L (3.5-5.1); Sodium 132 mmol/L (137-145); Total Bilirubin 0.7 mg/dL (0.2-1.3); Total Protein 5.2 g/dL (6.3-8.2)
--- NOTE | 2024-06-06 14:19 | P.PN ---
Subjective Progress Note Date: 06/06/24 78-year-old female who is seen in the emergency department, room 23. The patient was seen there initially on May 31. She came into the hospital, complaining of shortness of breath. The patient has a history of angiosarcoma, being followed at the [facility], receiving chemotherapy there. The patient had recent chemotherapy, and apparently afterward developed significant weakness, and shortness of breath. In addition, the patient has been requiring blood transfusions, weekly. The patient follows with Dr. Galdamez in this area. The patient states that she was very short of breath, and could not even stand up. For that reason, she was evaluated, in the emergency department, and admitted. While we saw her, she was on Airvo, at 40 L/min, with an FiO2 of 90%. She had been receiving a unit of packed red blood cells. She is not receiving any IV fluids. She was given singular 10 mg, Symbicort 160/4.5, 2 puffs twice a day, and DuoNebs, 4 times daily and as needed. The patient was given Rocephin empirically, because of concerns of infection. She is on home O2, at 10 L/min. Laboratory data includes a white count 23.5, hemoglobin 6.2, hematocrit 18.2, and a platelet count of 97,000. D-dimer was 5.56. Sodium 128, potassium 4.6, chloride 95, CO2 26, BUN 58, creatinine 2.44. Glucose is 158. Calcium 7.5. Troponin 0.035. N-terminal proBNP 4480. Albumin 2.6. Viral studies were negative. Chest x-ray shows cardiomegaly, small bilateral pleural effusions, and patchy infiltrates bilaterally, suggesting either infection, or CHF. Progress note dated June 02, 2024. This is a 78-year-old female with history of angiosarcoma, currently being treated with chemotherapy, at the [facility]. The patient was seen by our medical oncologist yesterday. The patient came in with profound shortness of breath. There was a component of fluid overload, and possibly also infection. In addition, medical oncology thought the patient may be having a reaction, to her chemotherapeutic agent, and started the patient on corticosteroids. Today she is feeling much better. She currently is on Airvo at 40 L/min with an FiO2 of 70%. We gave her Rocephin yesterday. She continues on updrafts with DuoNeb, and Symbicort. In addition, she is currently on Solu-Medrol. Labs today include a white count 8.6, hemoglobin 6.7, hematocrit 19.9, and a platelet count of 106,000. Sodium 128, potassium 3.7, chlorides 96, CO2 23, BUN 73, creatinine 2.39. Viral studies are negative. CT showed innumerable pulmonary nodules, which may relate to metastatic disease, versus infectious etiology. In addition, there is nonspecific mediastinal adenopathy. On 06/03/2024, the patient is being seen for a follow-up. 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 The patient has been having chronic hypoxemia on outpatient basis and her oxygen requirements were in the order of 6 to 8 L and recently that has been worsening in oxygenation. For that reason, the patient was admitted to the hospital. The patient has been receiving Vinorelbine on outpatient basis through [facility]. I reviewed the CAT scan of the chest and the patient has diffuse pulmonary me tastases. And the patient has also developed groundglass bilateral pulmonary filtrates which could be infectious versus drug-induced versus spread of her angiosarcoma. At this point in time, the patient on 4 L with FiO2 of 60%. She has some sputum production and her sputum was somewhat bloody earlier and currently she is not having any hemoptysis. The white cell count of 10.5 with a hemoglobin 7.7 and a platelet count of 159. BUN is 87 with a creatinine of 2.1 and sodium levels at 131. Her procalcitonin level was 7.1 and this could be indicative of underlying bacterial infection. Thyroid function test is within normal limits. The patient is currently on IV Rocephin. The patient is also on Symbicort and DuoNeb nebulized treatments [id number]. She is on Lasix 40 mg p.o. daily. She is following commands and answering questions appropriately. No other significant events overnight. On 06/04/2024, the patient is being seen for a follow-up. The patient is essentially unchanged. There may be some mild interval improvement in oxygenation. The patient is morning is on Airvo with 40 L with FiO2 of 60%. The patient's procalcitonin level is also dropped from 7.3 down to 2.6 as the patient is being treated with IV Rocephin. Remains on DuoNeb nebulized treatments [id number]. Occasional cough. No hemoptysis. Hemoglobin at 7.8, white cell count of 10.5, sodium levels at 129, BUN is 96 with a creatinine of 1.9 and renal function continues to improve. LFTs are mildly elevated with an AST of 51, AST of 64, normal alkaline phosphatase of 98. The patient's proc alcitonin level has dropped down to 2.65. No other complaints from the patient. She remains on IV Solu-Medrol 80 mg on a daily basis. On 06/05/2024, patient is being seen for a follow-up. The patient shows some modest improvement in oxygenation. She was brought down to 50 L of oxygen by nasal cannula and the Airvo system has been discontinued. She seems to be calm and comfortable and she denies having any specific complaints. She remains on Symbicort as maintenance, DuoNeb ON the clock. The patient is also on Lasix 40 mg p.o. on a daily basis. She remains on empiric antibiotic coverage with IV Rocephin and Solu-Medrol 80 mg IV every 24 hours. Labs from today shows a hemoglobin of 7.6, platelet count of 2 8, sodium is 139, BUN is 98 and creatinine is at 1.9. She denies having any specific complaints. She reports modest improvement in overall respiratory status without any interval decompensation. Patient 06/06/2024, the patient continues to be on oxygen and she is currently on 11 L high flow oxygen. Unable to arrange high flow oxygen concentrator for this patient on outpatient basis over the holidays and based on that, the patient will be kept in the hospital in 24 hours. Will continue IV Solu-Medrol 80 mg every 24 hours. Will continue IV Rocephin. Will continue the bronchodilators and the patient is using incentive spirometer. Hemoglobin is 8.5, the white cell count is at 11. BUN is 88 with a creatinine of 1.6 and a sodium levels at 132. There has been ongoing and progressive improvement in renal function. The patient denies having any other new specific complaints. Objective - Vital Signs Vital signs: Vital Signs Temp 97.6 F 06/06/24 08:31 Pulse 71 11/28/24 08:31 Resp 17 06/06/24 08:31 BP 145/70 06/06/24 08:31 Pulse Ox 92 L 06/06/24 08:31 FiO2 42 06/05/24 07:57 Intake & Output 06/05/24 06/06/24 06/06/24 18:59 06:59 18:59 Intake Total 0 240 Output Total 700 400 Balance -700 -160 Intake: Oral 0 240 Output: Urine 700 400 Other: Voiding Method Bedside Commode Bedside Commode Bedside Commode # Voids 1 1 # Bowel Movements 1 1 - Exam No acute distress, oriented 3. Currently on 11 L O2 nasal cannula. No dyspnea at rest. Not using accessory muscles of breathing. HEENT examination is grossly unremarkable. Neck supple. Full range of motion. No adenopathy thyromegaly or neck vein distention. Cardiovascular examination reveals regular rhythm rate. S1-S2 normal. No S3 or S4. No discernible murmur noted. Lungs reveal bilateral coarse rhonchi. Coarse crackles heard throughout the lung slater bilaterally Abdomen soft bowel sounds are heard. No masses or tenderness. Extremities are intact. No cyanosis clubbing or edema. Skin is without rash or lesion. Neurologic examination is brief but nonfocal. - Labs CBC & Chem 7: 06/06/24 09:21 06/06/24 09:21 Labs: Abnormal Lab Results - Last 24 Hours (Table) 06/06/24 06/06/24 Range/Units 09:21 09:21 WBC 11.1 H (3.8-10.6) k/uL RBC 2.74 L (3.80-5.40) m/uL Hgb 8.5 L (11.4-16.0) gm/dL Hct 25.4 L (34.0-46.0) % RDW 16.7 H (11.5-15.5) % Sodium 132 L (137-145) mmol/L BUN 88 H (7-17) mg/dL Creatinine 1.67 H (0.52-1.04) mg/dL Glucose 101 H (74-99) mg/dL Calcium 8.3 L (8.4-10.2) mg/dL ALT 41 H (4-34) U/L Total Protein 5.2 L (6.3-8.2) g/dL Albumin 3.0 L (3.5-5.0) g/dL Assessment and Plan Plan: Acute hypoxemic respiratory failure, which might be multifactorial, in part related to fluid overload,possible underlying pneumonia, and/or, her chemotherapeutic agent status post cycle 4-day 1 of Navelbine. The patient has multiple and innumerable lung masses consistent with metastatic disease. In add ition, the patient has developed groundglass bilateral pulm infiltrates which could be drug-induced versus infectious versus progression of her metastatic disease with lymphangitic spread. The patient is currently on 11 L O2 nasal cannula and the patient is currently off Airvo. Procalcitonin level is elevated and consider the possibility of active infection and the patient is currently on IV Rocephin. A follow-up procalcitonin level shows that level is improving is currently down to 2.65. Remains on IV Rocephin. Remains on IV Solu-Medrol. History of metastatic left breast angiosarcoma, currently undergoing chemotherapy at [facility]. Acute on chronic anemia, requiring frequent blood transfusions. Acute kidney injury, improving and the creatinine is dropped compared to y History of hypertension. History of hyperlipidemia. History of congestive heart failure. Stage IV chronic kidney disease. Valvular heart disease. History of breast cancer. History of factor V Leiden factor deficiency. Lifelong non-smoker. History of asthma. Plan: Patient continues to show some improvement in oxygenation. Patient is currently on 11 L O2 nasal cannula Continue IV Rocephin Recheck procalcitonin showing improvement in the procalcitonin level Continue bronchodilators and the patient on Symbicort and DuoNeb nebulized treatments [id number] Continue IV Solu-Medrol Reviewed the CAT scan of the chest Prognosis extremely poor based on above-mentioned complications. It is very much likely the patient has developed progression of her metastatic breast angio sarcoma. We will continue to follow make recommendations. Appreciate input by medical oncology. Will try to arrange a concentrator that delivers as high as 10 L for this patient on an outpatient basis. Will provide incentive spirometer Overall prognosis remains poor based on the above. Time with Patient: Less than 30
--- NOTE | 2024-06-06 22:47 | P.PN ---
Subjective Patient is a pleasant 78 years old female with past medical history of multiple medical problems including chronic kidney disease stage IV and history of angiosarcoma of the left breast, she follows up with Dr. Alexandra at [facility], she states she has evidence of metastasis to the liver and lung and she got chemotherapy 2 days prior to coming to this facility. Patient presents because of worsening dyspnea but no chest pain and some dry cough She does not have specific GI/ symptoms. No headache weakness or numbness. She denies smoking alcohol or illicit drugs. She is currently requiring 4 L of oxygen via airvo,. She is afebrile She has leukocytosis of 22,000, hemoglobin 7 came back to 6.2 and she is getting 1 unit of blood Platelet count 84 Sodium 128 Creatinine elevated 2.4 with baseline 2.1-2.4 D-dimer was elevated 5.5 Troponin 0.35 proBNP is high 4480 EKG showing sinus rhythm at [address]-T changes Chest x-ray showing bilateral patchy opacities suspicious for pulmonary edema Currently she is on IV Lasix twice daily at 40 mg. 06/02 Patient today remains on 40 L/min of oxygen via Airvo, patient reports feeling better. She is not in severe respiratory distress No other new complaint Her leukocytosis significantly improved down to 8.6, hemoglobin 6.7 and another unit of blood transfusion is ordered, platelet count 106 Sodium stable about 128 Creatinine stable at 2.39. CT of the chest without contrast showing innumerable lung nodules which could be metastatic disease versus infection with mediastinal lymphadenopathy Pro- Calcitonin is elevated 7.3 Patient kept on ceftriaxone 1 g twice daily and IV Lasix 40 mg twice daily. IV steroids added x 3 days by oncologist Yesterday pulmonary team recommended to transfer the patient [facility]. I talked to transfer center at [facility] and they say they have no bed to accommodate the patient and recommended to keep the patient in our facility and get treatment. This was explained to the patient and she verbalized understanding and acceptance 06/06 Patient seen today at bedside, she was lying in bed, sitting up, looks very com fortable and relaxed. She was willing to go home today but oxygen concentrator could not be arranged over the holiday as today is times during the day, patient hopes she will go home tomorrow This morning she was on 11 L of oxygen which is improved from 40 earlier in admission and later on 1 to 9 L but fluctuates little bit She remains on ceftriaxone for possible pneumonia element. But imaging showed innumerable masses metastasis to the liver and lung related to her diagnosis of angiosarcoma of the left breast. However patient currently looks comfortable denies any other specific symptoms. Has been at bedside and looks is agreeable with the current management plan Labs showing improvement with WBC 11,000, hemoglobin 8.5. Platelet count normal. Sodium improved up to 132, creatinine came down to 1.6. Possible discharge in 24 to 48 hours Objective - Vital Signs Vital signs: Vital Signs Temp 97.6 F 06/06/24 08:31 Pulse 72 06/06/24 12:17 Resp 18 06/06/24 11:11 BP 142/71 06/06/24 11:11 Pulse Ox 94 L 06/06/24 12:04 FiO2 42 06/05/24 07:57 Intake & Output 06/05/24 06/06/24 06/06/24 18:59 06:59 18:59 Intake Total 0 240 Output Total 700 400 Balance -700 -160 Intake: Oral 0 240 Output: Urine 700 400 Other: Voiding Method Bedside Commode Bedside Commode Bedside Commode # Voids 1 1 # Bowel Movements 1 1 - Exam -GENERAL: The patient is alert and oriented x3, not in any acute distress. Well developed, well nourished. Generally weak HEENT: Pupils are round and equally reacting to light. EOMI. No scleral icterus. No conjunctival pallor. Normocephalic, atraumatic. No pharyngeal erythema. No thyromegaly. CARDIOVASCULAR: S1 and S2 present. No murmurs, rubs, or gallops. -PULMONARY: Chest is clear to auscultation, no wheezing , no c bilateral crepitation, mildly tachypneic ABDOMEN: Soft, nontender, nondistended, normoactive bowel sounds. No palpable organomegaly. MUSCULOSKELETAL: No joint swelling or deformity. EXTREMITIES: No cyanosis, clubbing, or pedal edema. NEUROLOGICAL: Gross neurological examination did not reveal any focal deficits. SKIN: No rashes. no petechiae. - Labs CBC & Chem 7: 06/06/24 09:21 06/06/24 09:21 Labs: Abnormal Lab Results - Last 24 Hours (Table) 06/06/24 06/06/24 Range/Units 09:21 09:21 WBC 11.1 H (3.8-10.6) k/uL RBC 2.74 L (3.80-5.40) m/uL Hgb 8.5 L (11.4-16.0) gm/dL Hct 25.4 L (34.0-46.0) % RDW 16.7 H (11.5-15.5) % Sodium 132 L (137-145) mmol/L BUN 88 H (7-17) mg/dL Creatinine 1.67 H (0.52-1.04) mg/dL Glucose 101 H (74-99) mg/dL Calcium 8.3 L (8.4-10.2) mg/dL ALT 41 H (4-34) U/L Total Protein 5.2 L (6.3-8.2) g/dL Albumin 3.0 L (3.5-5.0) g/dL Assessment and Plan Assessment: Acute pulmonary edema, acute CHF with unknown ejection fraction, cannot rule out pneumonia. CT of the chest showing bilateral multiple lung nodules suspicious for metastatic disease versus pneumonia. 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 Her oncologist is Dr. Anguiano Hypervolemic hyponatremia Acute kidney injury on CKD stage IV Elevated troponin secondary to kidney disease and CHF Acute hypoxic respiratory failure Plan: Continue with oral Lasix Monitor labs and creatinine Continue with ceftriaxone Patient is s/p blood transfusion and monitor hemoglobin, currently stable Pulmonary and cardiology consult plan to get her oxygen concentrator tomorrow Labs and medication were reviewed.. Continue same treatment. Continue with symptomatic treatment. Resume home medication. Monitor labs and vitals. DVT and GI prophylaxis. Further recommendations as per clinical course of the patient DVT prophylaxis: Hold AC for severe anemia, continue with mechanical GI Prophylaxis: Ppi Prognosis is guarded possible dc home tomorrow if cleared by consultants and pulmonary services
--- NOTE | 2024-06-07 17:03 | P.PN ---
Subjective Progress Note Date: 06/07/24 78-year-old female who is seen in the emergency department, room 23. The patient was seen there initially on May 31. She came into the hospital, complaining of shortness of breath. The patient has a history of angiosarcoma, being followed at the [facility], receiving chemotherapy there. The patient had recent chemotherapy, and apparently afterward developed significant weakness, and shortness of breath. In addition, the patient has been requiring blood transfusions, weekly. The patient follows with Dr. Galdamez in this area. The patient states that she was very short of breath, and could not even stand up. For that reason, she was evaluated, in the emergency department, and admitted. While we saw her, she was on Airvo, at 40 L/min, with an FiO2 of 90%. She had been receiving a unit of packed red blood cells. She is not receiving any IV fluids. She was given singular 10 mg, Symbicort 160/4.5, 2 puffs twice a day, and DuoNebs, 4 times daily and as needed. The patient was given Rocephin empirically, because of concerns of infection. She is on home O2, at 10 L/min. Laboratory data includes a white count 23.5, hemoglobin 6.2, hematocrit 18.2, and a platelet count of 97,000. D-dimer was 5.56. Sodium 128, potassium 4.6, chloride 95, CO2 26, BUN 58, creatinine 2.44. Glucose is 158. Calcium 7.5. Troponin 0.035. N-terminal proBNP 4480. Albumin 2.6. Viral studies were negative. Chest x-ray shows cardiomegaly, small bilateral pleural effusions, and patchy infiltrates bilaterally, suggesting either infection, or CHF. Progress note dated June 02, 2024. This is a 78-year-old female with history of angiosarcoma, currently being treated with chemotherapy, at the [facility]. The patient was seen by our medical oncologist yesterday. The patient came in with profound shortness of breath. There was a component of fluid overload, and possibly also infection. In addition, medical oncology thought the patient may be having a reaction, to her chemotherapeutic agent, and started the patient on corticosteroids. Today she is feeling much better. She currently is on Airvo at 40 L/min with an FiO2 of 70%. We gave her Rocephin yesterday. She continues on updrafts with DuoNeb, and Symbicort. In addition, she is currently on Solu-Medrol. Labs today include a white count 8.6, hemoglobin 6.7, hematocrit 19.9, and a platelet count of 106,000. Sodium 128, potassium 3.7, chlorides 96, CO2 23, BUN 73, creatinine 2.39. Viral studies are negative. CT showed innumerable pulmonary nodules, which may relate to metastatic disease, versus infectious etiology. In addition, there is nonspecific mediastinal adenopathy. On 06/03/2024, the patient is being seen for a follow-up. 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 The patient has been having chronic hypoxemia on outpatient basis and her oxygen requirements were in the order of 6 to 8 L and recently that has been worsening in oxygenation. For that reason, the patient was admitted to the hospital. The patient has been receiving Vinorelbine on outpatient basis through [facility]. I reviewed the CAT scan of the chest and the patient has diffuse pulmonary me tastases. And the patient has also developed groundglass bilateral pulmonary filtrates which could be infectious versus drug-induced versus spread of her angiosarcoma. At this point in time, the patient on 4 L with FiO2 of 60%. She has some sputum production and her sputum was somewhat bloody earlier and currently she is not having any hemoptysis. The white cell count of 10.5 with a hemoglobin 7.7 and a platelet count of 159. BUN is 87 with a creatinine of 2.1 and sodium levels at 131. Her procalcitonin level was 7.1 and this could be indicative of underlying bacterial infection. Thyroid function test is within normal limits. The patient is currently on IV Rocephin. The patient is also on Symbicort and DuoNeb nebulized treatments [id number]. She is on Lasix 40 mg p.o. daily. She is following commands and answering questions appropriately. No other significant events overnight. On 06/04/2024, the patient is being seen for a follow-up. The patient is essentially unchanged. There may be some mild interval improvement in oxygenation. The patient is morning is on Airvo with 40 L with FiO2 of 60%. The patient's procalcitonin level is also dropped from 7.3 down to 2.6 as the patient is being treated with IV Rocephin. Remains on DuoNeb nebulized treatments [id number]. Occasional cough. No hemoptysis. Hemoglobin at 7.8, white cell count of 10.5, sodium levels at 129, BUN is 96 with a creatinine of 1.9 and renal function continues to improve. LFTs are mildly elevated with an AST of 51, AST of 64, normal alkaline phosphatase of 98. The patient's proc alcitonin level has dropped down to 2.65. No other complaints from the patient. She remains on IV Solu-Medrol 80 mg on a daily basis. On 06/05/2024, patient is being seen for a follow-up. The patient shows some modest improvement in oxygenation. She was brought down to 50 L of oxygen by nasal cannula and the Airvo system has been discontinued. She seems to be calm and comfortable and she denies having any specific complaints. She remains on Symbicort as maintenance, DuoNeb ON the clock. The patient is also on Lasix 40 mg p.o. on a daily basis. She remains on empiric antibiotic coverage with IV Rocephin and Solu-Medrol 80 mg IV every 24 hours. Labs from today shows a hemoglobin of 7.6, platelet count of 2 8, sodium is 139, BUN is 98 and creatinine is at 1.9. She denies having any specific complaints. She reports modest improvement in overall respiratory status without any interval decompensation. Patient 06/06/2024, the patient continues to be on oxygen and she is currently on 11 L high flow oxygen. Unable to arrange high flow oxygen concentrator for this patient on outpatient basis over the holidays and based on that, the patient will be kept in the hospital in 24 hours. Will continue IV Solu-Medrol 80 mg every 24 hours. Will continue IV Rocephin. Will continue the bronchodilators and the patient is using incentive spirometer. Hemoglobin is 8.5, the white cell count is at 11. BUN is 88 with a creatinine of 1.6 and a sodium levels at 132. There has been ongoing and progressive improvement in renal function. The patient denies having any other new specific complaints. On 06/07/2024, the patient is being seen for a follow-up. The patient is currently on oxygen at 8 L/min nasal cannula. Her pulse ox is ranging between 88 to 90%. Feeling well. Renal function continues to improve and the creatinine is down to 1.6 and a sodium level is up 232 and potassium levels of 4.7. Hemoglobin is at 8.5 with a white cell count of 11.9. The patient remains on IV Rocephin. The patient remains on Lasix 40 mg p.o. daily. She remains on IV Solu-Medrol 80 mg every 24 hours. Denies having any new complaints for using the incentive spirometer. Objective - Vital Signs Vital signs: Vital Signs Temp 97.5 F L 06/07/24 08:56 Pulse 74 06/07/24 08:58 Resp 14 06/07/24 08:56 BP 160/71 06/07/24 08:56 Pulse Ox 92 L 06/07/24 08:56 FiO2 42 06/05/24 07:57 Intake & Output 06/06/24 06/07/24 06/07/24 18:59 06:59 18:59 Intake Total 480 240 Output Total 400 600 600 Balance 80 -600 -360 Intake: Oral 480 240 Output: Urine 400 600 600 Other: Voiding Method Bedside Commode Bedside Commode # Voids 1 2 # Bowel Movements 1 - Exam No acute distress, oriented 3. Currently on 8 L O2 nasal cannula. No dyspnea at rest. Not using accessory muscles of breathing. HEENT examination is grossly unremarkable. Neck supple. Full range of motion. No adenopathy thyromegaly or neck vein distention. Cardiovascular examination reveals regular rhythm rate. S1-S2 normal. No S3 or S4. No discernible murmur noted. Lungs reveal bilateral coarse rhonchi. Coarse crackles heard throughout the lung slater bilaterally Abdomen soft bowel sounds are heard. No masses or tenderness. Extremities are intact. No cyanosis clubbing or edema. Skin is without rash or lesion. Neurologic examination is brief but nonfocal. - Labs CBC & Chem 7: 06/06/24 09:21 06/06/24 09:21 Assessment and Plan Plan: Acute hypoxemic respiratory failure, which might be multifactorial, in part related to fluid overload,possible underlying pneumonia, and/or, her chemotherapeutic agent status post cycle 4-day 1 of Navelbine. The patient has multiple and innumerable lung masses consistent with metastatic disease. In addition, the patient has developed groundglass bilateral pulm infiltrates which could be drug-induced versus infectious versus progression of her metastatic disease with lymphangitic spread. The patient is currently on 8 L O2 nasal cannula and the patient is currently off Airvo. Procalcitonin level is elevated and consider the possibility of active infection and the patient is currently on IV Rocephin. A follow-up procalcitonin level shows that level is improving is currently down to 2.65. Remains on IV Rocephin. Remains on IV Solu-Medrol. Clinically improving and oxygenation is obviously improved. Typically the patient is at 6 L of O2 at home. Currently is at 8 L. History of metastatic left breast angiosarcoma, currently undergoing chemotherapy at [facility]. Acute on chronic anemia, requiring frequent blood transfusions. Acute kidney injury, improving creatinine History of hypertension. History of hyperlipidemia. History of congestive heart failure. Stage IV chronic kidney disease. Valvular heart disease. History of breast cancer. History of factor V Leiden factor deficiency. Lifelong non-smoker. History of asthma. Plan: Patient continues to show some improvement in oxygenation. Patient is currently on 8 L O2 nasal cannula Continue IV Rocephin Recheck procalcitonin showing improvement in the procalcitonin level Continue bronchodilators and the patient on Symbicort and DuoNeb nebulized treatments [id number] Continue IV Solu-Medrol and this can be transition to prednisone burst taper at time of discharge Reviewed the CAT scan of the chest Prognosis extremely poor based on above-mentioned complications. It is very much likely the patient has developed progression of her metastatic breast angiosarcoma. We will continue to follow make recommendations. Appreciate input by medical oncology. Will try to arrange a concentrator that delivers as high as 10 L for this patient on an outpatient basis. Working with case management Will provide incentive spirometer Overall prognosis remains poor based on the above. Time with Patient: Less than 30
--- NOTE | 2024-06-07 17:54 | P.PN ---
Subjective Patient is a pleasant 78 years old female with past medical history of multiple medical problems including chronic kidney disease stage IV and history of angiosarcoma of the left breast, she follows up with Dr. Alexandra at [facility], she states she has evidence of metastasis to the liver and lung and she got chemotherapy 2 days prior to coming to this facility. Patient presents because of worsening dyspnea but no chest pain and some dry cough She does not have specific GI/ symptoms. No headache weakness or numbness. She denies smoking alcohol or illicit drugs. She is currently requiring 4 L of oxygen via airvo,. She is afebrile She has leukocytosis of 22,000, hemoglobin 7 came back to 6.2 and she is getting 1 unit of blood Platelet count 84 Sodium 128 Creatinine elevated 2.4 with baseline 2.1-2.4 D-dimer was elevated 5.5 Troponin 0.35 proBNP is high 4480 EKG showing sinus rhythm at [address]-T changes Chest x-ray showing bilateral patchy opacities suspicious for pulmonary edema Currently she is on IV Lasix twice daily at 40 mg. 06/02 Patient today remains on 40 L/min of oxygen via Airvo, patient reports feeling better. She is not in severe respiratory distress No other new complaint Her leukocytosis significantly improved down to 8.6, hemoglobin 6.7 and another unit of blood transfusion is ordered, platelet count 106 Sodium stable about 128 Creatinine stable at 2.39. CT of the chest without contrast showing innumerable lung nodules which could be metastatic disease versus infection with mediastinal lymphadenopathy Pro- Calcitonin is elevated 7.3 Patient kept on ceftriaxone 1 g twice daily and IV Lasix 40 mg twice daily. IV steroids added x 3 days by oncologist Yesterday pulmonary team recommended to transfer the patient [facility]. I talked to transfer center at [facility] and they say they have no bed to accommodate the patient and recommended to keep the patient in our facility and get treatment. This was explained to the patient and she verbalized understanding and acceptance 06/06 Patient seen today at bedside, she was lying in bed, sitting up, looks very com fortable and relaxed. She was willing to go home today but oxygen concentrator could not be arranged over the holiday as today is times during the day, patient hopes she will go home tomorrow This morning she was on 11 L of oxygen which is improved from 40 earlier in admission and later on 1 to 9 L but fluctuates little bit She remains on ceftriaxone for possible pneumonia element. But imaging showed innumerable masses metastasis to the liver and lung related to her diagnosis of angiosarcoma of the left breast. However patient currently looks comfortable denies any other specific symptoms. Has been at bedside and looks is agreeable with the current management plan Labs showing improvement with WBC 11,000, hemoglobin 8.5. Platelet count normal. Sodium improved up to 132, creatinine came down to 1.6. Possible discharge in 24 to 48 hours 06/07 Patient is breathing quietly, her oxygen requirement is 8 to 9 L/min today She feels fine and wants to go home. She can go home on a higher dose of oxygen as,her prognosis from metastatic disease is poor. Pending oxygen tank to be delivered at bedside prior to discharge She has a 10 L concentrator at home Possible discharge tomorrow. Pulmonary team in agreement with this plan Objective - Vital Signs Vital signs: Vital Signs Temp 98 F 06/07/24 17:09 Pulse 79 06/07/24 17:09 Resp 16 06/07/24 17:09 BP 147/71 06/07/24 17:09 Pulse Ox 88 L 06/07/24 17:09 FiO2 42 06/05/24 07:57 Intake & Output 06/06/24 06/07/24 06/07/24 18:59 06:59 18:59 Intake Total 480 598 Output Total 400 600 600 Balance 80 -600 -2 Intake: Oral 480 598 Output: Urine 400 600 600 Other: Voiding Method Bedside Commode Bedside Commode Bedside Commode # Voids 1 2 # Bowel Movements 1 - Exam -GENERAL: The patient is alert and oriented x3, not in any acute distress. Well developed, well nourished. Generally weak HEENT: Pupils are round and equally reacting to light. EOMI. No scleral icterus. No conjunctival pallor. Normocephalic, atraumatic. No pharyngeal erythema. No thyromegaly. CARDIOVASCULAR: S1 and S2 present. No murmurs, rubs, or gallops. -PULMONARY: Chest is clear to auscultation, no wheezing , no c bilateral crepitation, mildly tachypneic ABDOMEN: Soft, nontender, nondistended, normoactive bowel sounds. No palpable organomegaly. MUSCULOSKELETAL: No joint swelling or deformity. EXTREMITIES: No cyanosis, clubbing, or pedal edema. NEUROLOGICAL: Gross neurological examination did not reveal any focal deficits. SKIN: No rashes. no petechiae. - Labs CBC & Chem 7: 06/06/24 09:21 06/06/24 09:21 Assessment and Plan Assessment: Acute pulmonary edema, acute CHF with unknown ejection fraction, cannot rule out pneumonia. CT of the chest showing bilateral multiple lung nodules suspicious for metastatic disease versus pneumonia. 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 Her oncologist is Dr. Anguiano Hypervolemic hyponatremia Acute kidney injury on CKD stage IV Elevated troponin secondary to kidney disease and CHF Acute hypoxic respiratory failure Plan: Continue with oral Lasix Monitor labs and creatinine Continue with ceftriaxone Patient is s/p blood transfusion and monitor hemoglobin, currently stable Pulmonary and cardiology consult plan to get her oxygen concentrator tomorrow Labs and medication were reviewed.. Continue same treatment. Continue with symptomatic treatment. Resume home medication. Monitor labs and vitals. DVT and GI prophylaxis. Further recommendations as per clinical course of the patient DVT prophylaxis: Hold AC for severe anemia, continue with mechanical GI Prophylaxis: Ppi Prognosis is guarded possible dc home tomorrow if cleared by consultants and pulmonary services
[2024-06-08 04:02] VITALS: TEMP 97.8
--- NOTE | 2024-06-08 14:12 | P.PN ---
Subjective Progress Note Date: 06/08/24 78-year-old female who is seen in the emergency department, room 23. The patient was seen there initially on May 31. She came into the hospital, complaining of shortness of breath. The patient has a history of angiosarcoma, being followed at the [facility], receiving chemotherapy there. The patient had recent chemotherapy, and apparently afterward developed significant weakness, and shortness of breath. In addition, the patient has been requiring blood transfusions, weekly. The patient follows with Dr. Galdamez in this area. The patient states that she was very short of breath, and could not even stand up. For that reason, she was evaluated, in the emergency department, and admitted. While we saw her, she was on Airvo, at 40 L/min, with an FiO2 of 90%. She had been receiving a unit of packed red blood cells. She is not receiving any IV fluids. She was given singular 10 mg, Symbicort 160/4.5, 2 puffs twice a day, and DuoNebs, 4 times daily and as needed. The patient was given Rocephin empirically, because of concerns of infection. She is on home O2, at 10 L/min. Laboratory data includes a white count 23.5, hemoglobin 6.2, hematocrit 18.2, and a platelet count of 97,000. D-dimer was 5.56. Sodium 128, potassium 4.6, chloride 95, CO2 26, BUN 58, creatinine 2.44. Glucose is 158. Calcium 7.5. Troponin 0.035. N-terminal proBNP 4480. Albumin 2.6. Viral studies were negative. Chest x-ray shows cardiomegaly, small bilateral pleural effusions, and patchy infiltrates bilaterally, suggesting either infection, or CHF. Progress note dated June 02, 2024. This is a 78-year-old female with history of angiosarcoma, currently being treated with chemotherapy, at the [facility]. The patient was seen by our medical oncologist yesterday. The patient came in with profound shortness of breath. There was a component of fluid overload, and possibly also infection. In addition, medical oncology thought the patient may be having a reaction, to her chemotherapeutic agent, and started the patient on corticosteroids. Today she is feeling much better. She currently is on Airvo at 40 L/min with an FiO2 of 70%. We gave her Rocephin yesterday. She continues on updrafts with DuoNeb, and Symbicort. In addition, she is currently on Solu-Medrol. Labs today include a white count 8.6, hemoglobin 6.7, hematocrit 19.9, and a platelet count of 106,000. Sodium 128, potassium 3.7, chlorides 96, CO2 23, BUN 73, creatinine 2.39. Viral studies are negative. CT showed innumerable pulmonary nodules, which may relate to metastatic disease, versus infectious etiology. In addition, there is nonspecific mediastinal adenopathy. On 06/03/2024, the patient is being seen for a follow-up. 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 The patient has been having chronic hypoxemia on outpatient basis and her oxygen requirements were in the order of 6 to 8 L and recently that has been worsening in oxygenation. For that reason, the patient was admitted to the hospital. The patient has been receiving Vinorelbine on outpatient basis through [facility]. I reviewed the CAT scan of the chest and the patient has diffuse pulmonary me tastases. And the patient has also developed groundglass bilateral pulmonary filtrates which could be infectious versus drug-induced versus spread of her angiosarcoma. At this point in time, the patient on 4 L with FiO2 of 60%. She has some sputum production and her sputum was somewhat bloody earlier and currently she is not having any hemoptysis. The white cell count of 10.5 with a hemoglobin 7.7 and a platelet count of 159. BUN is 87 with a creatinine of 2.1 and sodium levels at 131. Her procalcitonin level was 7.1 and this could be indicative of underlying bacterial infection. Thyroid function test is within normal limits. The patient is currently on IV Rocephin. The patient is also on Symbicort and DuoNeb nebulized treatments [id number]. She is on Lasix 40 mg p.o. daily. She is following commands and answering questions appropriately. No other significant events overnight. On 06/04/2024, the patient is being seen for a follow-up. The patient is essentially unchanged. There may be some mild interval improvement in oxygenation. The patient is morning is on Airvo with 40 L with FiO2 of 60%. The patient's procalcitonin level is also dropped from 7.3 down to 2.6 as the patient is being treated with IV Rocephin. Remains on DuoNeb nebulized treatments [id number]. Occasional cough. No hemoptysis. Hemoglobin at 7.8, white cell count of 10.5, sodium levels at 129, BUN is 96 with a creatinine of 1.9 and renal function continues to improve. LFTs are mildly elevated with an AST of 51, AST of 64, normal alkaline phosphatase of 98. The patient's proc alcitonin level has dropped down to 2.65. No other complaints from the patient. She remains on IV Solu-Medrol 80 mg on a daily basis. On 06/05/2024, patient is being seen for a follow-up. The patient shows some modest improvement in oxygenation. She was brought down to 50 L of oxygen by nasal cannula and the Airvo system has been discontinued. She seems to be calm and comfortable and she denies having any specific complaints. She remains on Symbicort as maintenance, DuoNeb ON the clock. The patient is also on Lasix 40 mg p.o. on a daily basis. She remains on empiric antibiotic coverage with IV Rocephin and Solu-Medrol 80 mg IV every 24 hours. Labs from today shows a hemoglobin of 7.6, platelet count of 2 8, sodium is 139, BUN is 98 and creatinine is at 1.9. She denies having any specific complaints. She reports modest improvement in overall respiratory status without any interval decompensation. Patient 06/06/2024, the patient continues to be on oxygen and she is currently on 11 L high flow oxygen. Unable to arrange high flow oxygen concentrator for this patient on outpatient basis over the holidays and based on that, the patient will be kept in the hospital in 24 hours. Will continue IV Solu-Medrol 80 mg every 24 hours. Will continue IV Rocephin. Will continue the bronchodilators and the patient is using incentive spirometer. Hemoglobin is 8.5, the white cell count is at 11. BUN is 88 with a creatinine of 1.6 and a sodium levels at 132. There has been ongoing and progressive improvement in renal function. The patient denies having any other new specific complaints. On 06/07/2024, the patient is being seen for a follow-up. The patient is currently on oxygen at 8 L/min nasal cannula. Her pulse ox is ranging between 88 to 90%. Feeling well. Renal function continues to improve and the creatinine is down to 1.6 and a sodium level is up 232 and potassium levels of 4.7. Hemoglobin is at 8.5 with a white cell count of 11.9. The patient remains on IV Rocephin. The patient remains on Lasix 40 mg p.o. daily. She remains on IV Solu-Medrol 80 mg every 24 hours. Denies having any new complaints for using the incentive spirometer. On 06/08/2024, the patient has no specific complaints and she remains on 8 L of oxygen by nasal cannula. Discharge planning still in progress. She remains on IV Solu-Medrol 80 mg on a daily basis and she has completed her course of Rocephin. She is calm and comfortable. The white cell count is at 11 with a h emoglobin of 8.5 from 05/29/2024. No new labs. Most recent creatinine was down to 1.6 with a BUN of 88. Objective - Vital Signs Vital signs: Vital Signs Temp 97.8 F 06/08/24 08:42 Pulse 76 06/08/24 09:08 Resp 20 06/08/24 08:42 BP 142/74 06/08/24 08:42 Pulse Ox 90 L 06/08/24 08:42 FiO2 42 06/05/24 07:57 Intake & Output 06/07/24 06/08/24 06/08/24 18:59 06:59 18:59 Intake Total 598 240 240 Output Total 600 800 400 Balance -2 -560 -160 Weight 78.8 kg Intake: Oral 598 240 240 Output: Urine 600 800 400 Other: Voiding Method Bedside Commode Bedside Commode Bedside Commode # Voids 3 1 - Exam No acute distress, oriented 3. Currently on 8 L O2 nasal cannula. No dyspnea at rest. Not using accessory muscles of breathing. HEENT examination is grossly unremarkable. Neck supple. Full range of motion. No adenopathy thyromegaly or neck vein distention. Cardiovascular examination reveals regular rhythm rate. S1-S2 normal. No S3 or S4. No discernible murmur noted. Lungs reveal bilateral coarse rhonchi. Coarse crackles heard throughout the lung slater bilaterally Abdomen soft bowel sounds are heard. No masses or tenderness. Extremities are intact. No cyanosis clubbing or edema. Skin is without rash or lesion. Neurologic examination is brief but nonfocal. - Labs CBC & Chem 7: 06/06/24 09:21 06/06/24 09:21 Assessment and Plan Plan: Acute hypoxemic respiratory failure, which might be multifactorial, in part re lated to fluid overload,possible underlying pneumonia, and/or, her chemotherapeutic agent status post cycle 4-day 1 of Navelbine. The patient has multiple and innumerable lung masses consistent with metastatic disease. In addition, the patient has developed groundglass bilateral pulm infiltrates which could be drug-induced versus infectious versus progression of her metastatic disease with lymphangitic spread. The patient is currently on 8 L O2 nasal cannula and the patient is currently off Airvo. Procalcitonin level is elevated and consider the possibility of active infection and the patient is currently on IV Rocephin. A follow-up procalcitonin level shows that level is improving is c urrently down to 2.65. Remains on IV Rocephin. Remains on IV Solu-Medrol. Clinically improving and oxygenation is obviously improved. Typically the patient is at 6 L of O2 at home. Currently is at 8 L. History of metastatic left breast angiosarcoma, currently undergoing chemotherapy at [facility]. Acute on chronic anemia, requiring frequent blood transfusions. Acute kidney injury, improving creatinine History of hypertension. History of hyperlipidemia. History of congestive heart failure. Stage IV chronic kidney disease. Valvular heart disease. History of breast cancer. History of factor V Leiden factor deficiency. Lifelong non-smoker. History of asthma. Plan: Overall condition is stable Patient continues to show some improvement in oxygenation. Patient is currently on 8 L O2 nasal cannula Complete the course of Rocephin Recheck procalcitonin showing improvement in the procalcitonin level Continue bronchodilators and the patient on Symbicort and DuoNeb nebulized treatments [id number] Continue IV Solu-Medrol and this can be transition to prednisone burst taper at time of discharge Reviewed the CAT scan of the chest Prognosis extremely poor based on above-mentioned complications. It is very much likely the patient has developed progression of her metastatic breast angiosarcoma. We will continue to follow make recommendations. Appreciate input by medical oncology. Will try to arrange a concentrator that delivers as high as 10 L or 15 L for this patient on an outpatient basis. Working with case management Will provide incentive spirometer Overall prognosis remains poor based on the above. Time with Patient: Less than 30
[2024-06-08 15:29] VITALS: BP 145/75; PULSE 71; RESP 24
== END 2024-06-08 16:15 | disposition home health service (06) | DRG 291 ==
LOC: EC 13:48 → 3SCARD 19:16
PROVIDERS: ADMIT Family Medicine; ATTEND Family Medicine
PROC: 30233N1 Transfusion of Nonautologous Red Blood Cells into Peripheral Vein, Percutaneous Approach (ICD-10-PCS; principal; 2024-06-01)
DX: I13.0 Hypertensive heart and chronic kidney disease with heart failure and stage 1 through stage 4 chronic kidney disease, or unspecified chronic kidney disease (principal); I50.33 Acute on chronic diastolic (congestive) heart failure; J96.21 Acute and chronic respiratory failure with hypoxia; J18.9 Pneumonia, unspecified organism; C78.02 Secondary malignant neoplasm of left lung; C78.01 Secondary malignant neoplasm of right lung; C78.7 Secondary malignant neoplasm of liver and intrahepatic bile duct; C79.72 Secondary malignant neoplasm of left adrenal gland; C79.71 Secondary malignant neoplasm of right adrenal gland; E87.1 Hypo-osmolality and hyponatremia; N18.4 Chronic kidney disease, stage 4 (severe); D68.51 Activated protein C resistance; N17.9 Acute kidney failure, unspecified; C50.912 Malignant neoplasm of unspecified site of left female breast; D69.59 Other secondary thrombocytopenia; J45.909 Unspecified asthma, uncomplicated; I05.2 Rheumatic mitral stenosis with insufficiency; D64.81 Anemia due to antineoplastic chemotherapy; D72.828 Other elevated white blood cell count; T45.1X5A Adverse effect of antineoplastic and immunosuppressive drugs, initial encounter; E78.5 Hyperlipidemia, unspecified; M17.11 Unilateral primary osteoarthritis, right knee; R59.0 Localized enlarged lymph nodes; Z79.891 Long term (current) use of opiate analgesic; Z79.899 Other long term (current) drug therapy; Z99.81 Dependence on supplemental oxygen; Z96.652 Presence of left artificial knee joint; Z87.891 Personal history of nicotine dependence; Z71.3 Dietary counseling and surveillance
CPT/HCPCS: 36415; 36430; 51702; 71045; 71250; 80048; 80053; 80076; 82607; 82728; 82746; 83540; 83550; 83605; 83735; 83880; 83921; 84145; 84443; 84484; 85025; 85027; 85379; 85610; 85730; 86850; 86900; 86901; 86920; 87636; 93005; 94640; 94760; 96374; 96375; 96376; 99291